=== PATIENT | male | born 1935 | race Caucasian/White ===

== ENCOUNTER → 2018-02-15 06:52 | Outpatient (CLI) | payer MEDICARE, SELFPAY ==
--- NOTE | 2018-02-15 | DI.MRI.S_ITS ---
PROCEDURE: MR HEAD/BRAIN WO CON INDICATIONS: Benign neoplasm of pituitary gland TECHNIQUE: Non-contrast axial T1 spin echo, axial T2 fast spin echo, sagittal and axial FLAIR, coronal T2 fast spin echo, axial gradient echo, axial diffusion and ADC through the brain. COMPARISON: [facility], CT, HEAD WITHOUT CONTRAST, 09/30/2016, 16:02. [facility], CT, HEAD WITHOUT CONTRAST, 12/20/2016, 19:56. [facility], MR, BRAIN (PITUITARY) W&WO CONTRAS, 08/26/2016, 7:46. [facility], CT, HEAD WITHOUT CONTRAST, 01/24/2016, 12:52. [facility], MR, BRAIN W&WO CONTRAST, 01/24/2016, 14:00. FINDINGS: Image quality: Excellent. CSF spaces: Ventricles appear symmetric in size and shape. Basal cisterns are patent. No extra-axial fluid collections. Brain: The pituitary fossa is enlarged. The large pituitary mass seen on prior MRIs are no longer visualized. There are post surgical changes in the pituitary fossa. There is 1.6 x 1.3 x 1.0 cm soft tissue left inferior lateral pituitary fossa. No intracranial bleeds or mass effects. There is cerebral volume loss for age. There are mild periventricular and deep white matter chronic small vessel ischemic changes. Brainstem appears normal. Diffusion-weighted images show no acute ischemic insults. No chronic ischemic insults. Normal intravascular flow voids are present. Skull and face: Calvarial bone marrow is normal in signal. Orbits are normal. Sinuses: Mastoids are clear. Mild ethmoid and maxillary sinus mucosal thickening bilaterally. IMPRESSION: 1. Postsurgical changes in the pituitary fossa. The large pituitary mass seen on prior MRIs is no longer visualized. There is a 1.6 x 1.3 x 1.0 cm soft tissue in the left Inferolateral aspect of the pituitary fossa, which could be postsurgical sequela but residual mass is not excluded. Contrast-enhanced images are recommended for further characterization. Comparison to outside post-operative MRI examinations is also recommended when prior outside studies become available. 2. No acute intracranial abnormalities. 3. Cerebral volume loss and mild chronic microvascular ischemic changes. 4. Mild bilateral ethmoid and maxillary sinus because of thickening. Dictated by: Keenan Frausto M.D. on 02/15/2018 at 10:22 Approved by: Keenan Frausto M.D. on 02/15/2018 at 10:47
== END ==
PROVIDERS: PCP Family Medicine; Visit Provider Nurse Practitioner
DX: D35.2 Benign neoplasm of pituitary gland (principal); J32.8 Other chronic sinusitis
CPT/HCPCS: 70551

== ENCOUNTER 2018-07-05 12:39 | Emergency (ER) | payer MEDICARE, SELFPAY ==
[2018-07-05 13:15] VITALS: BP 139/55; PULSE 68; RESP 18; TEMP 36.6; O2SAT 98
--- NOTE | 2018-07-05 13:46 | DI.RAD.S_ITS ---
PROCEDURE: XR CHEST 2V INDICATIONS: cough, chest pain with inspiration TECHNIQUE: 2 views of the chest were acquired. COMPARISON: [facility], , CHEST 1 VIEW, 01/21/2017, 20:08. FINDINGS: Surgical changes and devices: None. Lungs and pleura: Patchy opacity noted in the left lung base concerning for aspiration versus pneumonia. Trace left pleural effusion. No pneumothorax. Mediastinum: Mediastinal contours are normal. Heart size is normal. Bones and chest wall: No suspicious bony abnormalities. Soft tissues appear unremarkable. IMPRESSION: Left basilar pneumonia versus aspiration with trace left-sided pleural effusion. Dictated by: Em Chavira MD, PhD on 07/05/2018 at 14:18 Approved by: Em Chavira MD, PhD on 07/05/2018 at 14:19
--- NOTE | 2018-07-05 13:50 | ED_ITS ---
HPI - Weakness <Parris Hinds, FRONT OFFICE MANAGER-BC - Last Filed: 07/05/18 19:04> General Chief complaint: Dizziness Stated complaint: Low BP,discomfort in left arm Time Seen by Provider: 07/05/18 13:29 Source: patient and family Mode of arrival: ambulatory Limitations: no limitations History of Present Illness HPI Narrative: The patient is an 82-year-old male with history of syncope who presents with his daughter for chief complaint of progressive weakness over the past few days combined with left-sided shoulder and arm pain for the past few days. He denies current pain at this point time. The patient's daughter presented today in, states something is just wrong. 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 He states he got really pale and 1 of his forced him to sit down. He denies any chest pain at this point time, shortness of breath, but does complain of chest congestion. He states that his left chest hurts when he takes a deep breath in. He denies any abdominal pain nausea vomiting but does complain of soft stools. He states this is not diarrhea. He states he is trying to drink enough water, but his daughter states he is not. Related Data Home Medications Medication Instructions Recorded Confirmed hydrocortisone [Cortef] 20 mg PO DAILY #0 09/30/16 07/05/18 levothyroxine [Synthroid] 0.075 mg PO QAM #0 09/30/16 07/05/18 desmopressin 0.05 mg PO BEDTIME #0 01/14/17 07/05/18 aspirin 81 mg PO QAM #0 01/21/17 07/05/18 latanoprost 1 drp OPHTH BEDTIME #0 01/21/17 07/05/18 Calcium 1 tab PO QNOON 07/05/18 07/05/18 atorvastatin [Lipitor] 10 mg PO BEDTIME 07/05/18 07/05/18 multivitamin 1 tab PO DAILY 07/05/18 07/05/18 valsartan 160 mg PO QPM 07/05/18 07/05/18 Previous Rx's Medication Instructions Recorded Zostavax (PF) 0.5 ml SQ X1 #0.5 ml 02/09/17 albuterol sulfate [Ventolin HFA] 2 puff INHALATION Q4-6H PRN #18 07/05/18 gram levofloxacin [Levaquin] 750 mg PO DAILY #7 tab 07/05/18 Allergies Allergy/AdvReac Type Severity Reaction Status Date / Time No Known Drug Allergies Allergy Unknown Unverified 06/24/17 12:33 [NO KNOWN DRUG ALLERGIES] Review of Systems <LIBRA Alberto - Last Filed: 07/05/18 19:04> Review of Systems GENERAL: Denies chills, fatigue, malaise, fever, sweats. HEENT: Denies sinus pain, ear pain, sore throat, difficulty swallowing, dizziness. RESPIRATORY: See HPI CARDIOVASCULAR: See HPI GASTROINTESTINAL: Denies nausea, vomiting, abdominal pain, diarrhea, constipation, melena. : Denies dysuria, frequency, incontinence, hematuria, urinary retention. MUSCULOSKELETAL: denies weakness, joint pain, or bony pain SKIN: Denies rash, skin lesions, or other NEUROLOGIC: Denies weakness, headache, numbness, change in speech, confusion, seizures, incoordination. PSYCHIATRIC: No concerning psychosocial issues. 12 point review of systems is negative except for those stated above PFSH <LIBRA Alberto - Last Filed: 07/05/18 19:04> Surgical History Status post appendectomy Family History (Updated 09/19/16 @ 00:00 by Conversion Provider) Grandfather Mental health problem Grandmother Hypertension Mother Age: 104 Colon cancer Grandfather Heart disease Family History Grandfather Mental health problem Grandmother Hypertension Mother Age: 104 Colon cancer Grandfather Heart disease Exam <LIBRA Alberto - Last Filed: 07/05/18 19:04> Narrative Exam Narrative: GENERAL: This is a well-nourished, well-developed patient, no acute distress HEAD: Atraumatic. Normocephalic. No temporal or scalp tenderness. EYES: Pupils equal round and reactive. Extraocular motions intact. No scleral icterus. No injection or drainage. ENT: Nose without bleeding, purulent drainage or septal hematoma. Throat without erythema, tonsillar hypertrophy or exudate. Uvula midline. Airway patent. NECK: Trachea midline. No JVD or lymphadenopathy. Supple, nontender, no meningeal signs. CARDIOVASCULAR: Regular rate and rhythm without murmurs, gallops, or rubs. RESPIRATORY: Clear to auscultation. Breath sounds equal bilaterally. No wheezes, rales, or rhonchi. Slight cough on exam. No accessory muscle use. Speaking full sentences. GASTROINTESTINAL: Abdomen soft, non-tender, nondistended. No hepato- splenomegaly, or palpable masses. No guarding. EXTREMITIES: No clubbing, cyanosis, or edema. No joint tenderness, effusion, or edema noted. BACK: Nontender without deformity or crepitance. No flank tenderness. NEURO: AOx3. SKIN: No rash or erythema. Initial Vital Signs Initial Vital Signs: Vital Signs Temperature 97.9 F 07/05/18 13:15 Pulse Rate 68 07/05/18 13:15 Respiratory Rate 18 07/05/18 13:15 Blood Pressure 139/55 L 07/05/18 13:15 Pulse Oximetry 98 07/05/18 13:15 <Jennifer Moss DO - Last Filed: 07/06/18 11:21> Initial Vital Signs Initial Vital Signs: Vital Signs Temperature 97.9 F 07/05/18 13:15 Pulse Rate 68 07/05/18 13:15 Respiratory Rate 18 07/05/18 13:15 Blood Pressure 139/55 L 07/05/18 13:15 Pulse Oximetry 98 07/05/18 13:15 Course <MATT Alberto-BC - Last Filed: 07/05/18 19:04> Orders Ordered: Discontinued Medications Sodium Chloride (Normal Saline 0.9%) 1,000 mls @ 1,000 mls/hr IV BOLUS ONE Stop: 07/05/18 14:45 Last Infusion: 07/05/18 16:48 Dose: 0 mls/hr Admin: 07/05/18 14:53 Dose: 1,000 mls/hr Vital Signs - 8 hr 07/05/18 13:15 07/05/18 15:02 07/05/18 16:00 Temperature 97.9 F Pulse Rate 68 92 H 71 Pulse Rate [Orthostatic Lying] Pulse Rate [Orthostatic Sitting] Pulse Rate [Orthostatic Standing] Respiratory Rate 18 17 21 Blood Pressure 139/55 L Blood Pressure [Left Arm] 120/86 147/62 H Blood Pressure [Orthostatic Lying] Blood Pressure [Orthostatic Sitting] Blood Pressure [Orthostatic Standing] Pulse Oximetry 98 98 97 07/05/18 16:45 07/05/18 17:00 07/05/18 18:00 Temperature Pulse Rate 66 67 Pulse Rate [Orthostatic Lying] 67 Pulse Rate [Orthostatic Sitting] 74 Pulse Rate [Orthostatic Standing] 82 Respiratory Rate 21 19 Blood Pressure Blood Pressure [Left Arm] 141/53 H 140/54 L Blood Pressure [Orthostatic Lying] 128/51 L Blood Pressure [Orthostatic Sitting] 150/64 H Blood Pressure [Orthostatic Standing] 128/60 Pulse Oximetry 97 97 <Jennifer Moss DO - Last Filed: 07/06/18 11:21> Orders Ordered: Discontinued Medications Sodium Chloride (Normal Saline 0.9%) 1,000 mls @ 1,000 mls/hr IV BOLUS ONE Stop: 07/05/18 14:45 Last Infusion: 07/05/18 16:48 Dose: 0 mls/hr Admin: 07/05/18 14:53 Dose: 1,000 mls/hr Vital Signs - 8 hr 07/05/18 13:15 07/05/18 15:02 07/05/18 16:00 Temperature 97.9 F Pulse Rate 68 92 H 71 Pulse Rate [Orthostatic Lying] Pulse Rate [Orthostatic Sitting] Pulse Rate [Orthostatic Standing] Respiratory Rate 18 17 21 Blood Pressure 139/55 L Blood Pressure [Left Arm] 120/86 147/62 H Blood Pressure [Orthostatic Lying] Blood Pressure [Orthostatic Sitting] Blood Pressure [Orthostatic Standing] Pulse Oximetry 98 98 97 07/05/18 16:45 07/05/18 17:00 07/05/18 18:00 Temperature Pulse Rate 66 67 Pulse Rate [Orthostatic Lying] 67 Pulse Rate [Orthostatic Sitting] 74 Pulse Rate [Orthostatic Standing] 82 Respiratory Rate 21 19 Blood Pressure Blood Pressure [Left Arm] 141/53 H 140/54 L Blood Pressure [Orthostatic Lying] 128/51 L Blood Pressure [Orthostatic Sitting] 150/64 H Blood Pressure [Orthostatic Standing] 128/60 Pulse Oximetry 97 97 MDM - Weakness <LIBRA Alberto - Last Filed: 07/05/18 19:04> Lab Data Result diagrams: 07/05/18 14:55 07/05/18 14:55 Lab Results 07/05/18 07/05/18 07/05/18 Range/Units 14:55 14:55 14:55 WBC 9.5 (4.5-11.0) X10^3/uL RBC 3.98 L (4.5-5.9) X10^6/uL Hgb 11.6 L (13.5-17.5) g/dL Hct 34.7 L (41-53) % MCV 87.1 (80-100) fL MCH 29.2 (26-34) PG MCHC 33.6 (30-36) % RDW 13.4 (11.6-14.8) % Plt Count 129 L (150-400) X10^3/uL Neut % (Auto) 78.9 H (50-75) % Lymph % (Auto) 10.3 L (25-40) % Jewell % (Auto) 10.1 (3-14) % Eos % (Auto) 0.4 L (2-4) % Baso % (Auto) 0.3 (0-2) % Neut # (Auto) 7500 H (2111-6541) /uL Lymph # (Auto) 1000 L (8941-8736) /uL Jewell # (Auto) 1000 H (0-900) /uL Eos # (Auto) 0 (0-450) /uL Baso # (Auto) 0 (0-100) /uL PT 13.0 H (10.1-12.7) SECONDS INR 1.1 (0.9-1.3) Sodium 135 L (137-145) mmol/L Potassium 4.3 (3.4-5.1) mmol/L Chloride 98 (98-107) mmol/L Carbon Dioxide 28 (22-32) mmol/L BUN 29 H (9-20) mg/dL Creatinine 1.90 H (0.66-1.25) mg/dL Estimated GFR 34.2 L (>60) mL/min BUN/Creatinine Ratio 15.3 (6-22) Glucose 93 (80-110) mg/dL Calcium 9.5 (8.4-10.2) mg/dL Magnesium (1.6-2.3) mg/dL Total Bilirubin 1.0 (0.2-1.3) mg/dL AST 37 (17-59) IU/L ALT 22 (21-72) IU/L Alkaline Phosphatase 71 (38-126) U/L Total Creatine Kinase 57 (55-170) U/L CK-MB (CK-2) TNP CK-MB (CK-2) Rel Index TNP Troponin I < 0.012 (0.01-0.034) ng/mL B-Natriuretic Peptide < 100 (<100) Total Protein 7.1 (6.3-8.2) g/dL Albumin 4.1 (3.5-5.0) g/dL Globulin 3.0 (1.7-4.1) g/dL Albumin/Globulin Ratio 1.4 (1.0-2.8) 07/05/18 07/05/18 Range/Units 14:55 17:10 WBC (4.5-11.0) X10^3/uL RBC (4.5-5.9) X10^6/uL Hgb (13.5-17.5) g/dL Hct (41-53) % MCV (80-100) fL MCH (26-34) PG MCHC (30-36) % RDW (11.6-14.8) % Plt Count (150-400) X10^3/uL Neut % (Auto) (50-75) % Lymph % (Auto) (25-40) % Jewell % (Auto) (3-14) % Eos % (Auto) (2-4) % Baso % (Auto) (0-2) % Neut # (Auto) (0508-7817) /uL Lymph # (Auto) (1512-9833) /uL Jewell # (Auto) (0-900) /uL Eos # (Auto) (0-450) /uL Baso # (Auto) (0-100) /uL PT (10.1-12.7) SECONDS INR (0.9-1.3) Sodium (137-145) mmol/L Potassium (3.4-5.1) mmol/L Chloride (98-107) mmol/L Carbon Dioxide (22-32) mmol/L BUN (9-20) mg/dL Creatinine (0.66-1.25) mg/dL Estimated GFR (>60) mL/min BUN/Creatinine Ratio (6-22) Glucose (80-110) mg/dL Calcium (8.4-10.2) mg/dL Magnesium 2.1 (1.6-2.3) mg/dL Total Bilirubin (0.2-1.3) mg/dL AST (17-59) IU/L ALT (21-72) IU/L Alkaline Phosphatase (38-126) U/L Total Creatine Kinase 57 (55-170) U/L CK-MB (CK-2) TNP CK-MB (CK-2) Rel Index TNP Troponin I < 0.012 (0.01-0.034) ng/mL B-Natriuretic Peptide (<100) Total Protein (6.3-8.2) g/dL Albumin (3.5-5.0) g/dL Globulin (1.7-4.1) g/dL Albumin/Globulin Ratio (1.0-2.8) Urine Dip Bedside Urine Glucose Negative Bedside Urine Bilirubin - Negative Bedside Urine Ketone - Negative Urine Specific [place] 1.015 Bedside Urine Occult Blood - Negative Bedside Urine pH 6.0 Bedside Urine Protein +/- 15 Bedside Urine Urobilinogen - Negative Bedside Urine Nitrite - Negative Bedside Urine Leukocytes - Negative Esterase Imaging Data Chest x-ray: Radiologist's impression: [address] [address] XRay Report Signed Patient: Pablo Saez LMR#: [id number] : 7Acct:[id number] Age/Sex: 82 / MDate of Service: 07/05/18 Loc: ED Accession Number: [id number] Procedure: XR chest 2V Ordering Provider: Parris Hinds PROCEDURE: XR CHEST 2V INDICATIONS: cough, chest pain with inspiration TECHNIQUE: 2 views of the chest were acquired. COMPARISON: [facility], , CHEST 1 VIEW, 01/21/2017, 20:08. FINDINGS: Surgical changes and devices: None. Lungs and pleura: Patchy opacity noted in the left lung base concerning for aspiration versus pneumonia. Trace left pleural effusion. No pneumothorax. Mediastinum: Mediastinal contours are normal. Heart size is normal. Bones and chest wall: No suspicious bony abnormalities. Soft tissues appear unremarkable. IMPRESSION: Left basilar pneumonia versus aspiration with trace left-sided pleural effusion. Dictated by: Em Chavira MD, PhD on 07/05/2018 at 14:18 Approved by: Em Chavira MD, PhD on 07/05/2018 at 14:19 CT scan - head: Radiologist's impression: [address] [address] [address] Scan Report Signed Patient: Pablo Saez LMR#: [id number] : 7Acct:[id number] Age/Sex: 82 / MDate of Service: 07/05/18 Loc: ED Accession Number: [id number] Procedure: CT head/brain wo con [facility]ing [facility] CT HEAD/BRAIN WO CON INDICATIONS: Dizziness. 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 TECHNIQUE: Noncontrast 4.5 mm thick angled axial sections acquired from the foramen magnum to the vertex, with coronal and sagittal reformats. For radiation dose reduction, the following was used: automated exposure control, adjustment of mA and/or kV according to patient size. COMPARISON: [facility], CT, HEAD WITHOUT CONTRAST, 12/20/2016, 19:56. [facility], CT, HEAD WITHOUT CONTRAST, 09/30/2016, 16:02. [facility], CT, HEAD WITHOUT CONTRAST, 01/24/2016, 12:52. FINDINGS: Image quality: Excellent. CSF spaces: Basal cisterns are patent. No extra-axial fluid collections. Ventricles are normal in size and shape. Brain: No midline shift. No intracranial hemorrhage. Soriano-white matter interface is normal. Punctate left basal ganglia calcifications are unchanged from prior comparison exams. There is mild diffuse cerebral volume loss. There is mild subcortical and periventricular white matter hypoattenuation that is nonspecific but compatible with chronic microvascular ischemic changes. There is calcified plaque of the intracranial vasculature. There are demonstrated postsurgical changes of the left greater than right pituitary fossa, with residual postsurgical material/soft tissue in the left pituitary fossa that appears similar to prior comparison exam of 12/20/16.. Skull and face: Calvarium and visualized facial bones are intact, without suspicious lesions. Sinuses: Visualized sinuses and mastoids are clear. IMPRESSION: 1. Redemonstrated postsurgical changes of the pituitary fossa with reported history of prior pituitary tumor removal. Residual pituitary tumor cannot be excluded by noncontrast CT scan of the head. 2. No acute intracranial hemorrhage or large territorial infarct. Dictated by: Ernesto Daniels M.D. on 07/05/2018 at 14:35 Approved by: Ernesto Daniels M.D. on 07/05/2018 at 14:44 ECG Data Interpretation: Sinus rhythm. ventricular rate 69. No ST elevation or depression. No ectopy noted. Viewed by Dr. Moss MDM Narrative Medical decision making narrative: The patient is an 82-year-old male who presents with complaints of weakness and pain upon deep breaths on his left side. His CT shows no acute abnormality, but shows pneumonia on chest x-ray. He has 2 sets of negative troponins, normal white blood cell count is hemodynamically stable in the emergency department. Thus he was given Levaquin. He also had a prescription of Ventolin if needed. I discussed at length return precautions of severe shortness of breath, chest pain or acute concerns. Encouraged patient to follow up with primary care provider soon as possible. Patient has no questions or concerns and was discharged home with daughter. <Jennifer Moss, - Last Filed: 07/06/18 11:21> Lab Data Attestation: I reviewed the patient's lab results. Lab Results 07/05/18 07/05/18 07/05/18 Range/Units 14:55 14:55 14:55 WBC 9.5 (4.5-11.0) X10^3/uL RBC 3.98 L (4.5-5.9) X10^6/uL Hgb 11.6 L (13.5-17.5) g/dL Hct 34.7 L (41-53) % MCV 87.1 (80-100) fL MCH 29.2 (26-34) PG MCHC 33.6 (30-36) % RDW 13.4 (11.6-14.8) % Plt Count 129 L (150-400) X10^3/uL Neut % (Auto) 78.9 H (50-75) % Lymph % (Auto) 10.3 L (25-40) % Jewell % (Auto) 10.1 (3-14) % Eos % (Auto) 0.4 L (2-4) % Baso % (Auto) 0.3 (0-2) % Neut # (Auto) 7500 H (3322-7858) /uL Lymph # (Auto) 1000 L (8473-1599) /uL Jewell # (Auto) 1000 H (0-900) /uL Eos # (Auto) 0 (0-450) /uL Baso # (Auto) 0 (0-100) /uL PT 13.0 H (10.1-12.7) SECONDS INR 1.1 (0.9-1.3) Sodium 135 L (137-145) mmol/L Potassium 4.3 (3.4-5.1) mmol/L Chloride 98 (98-107) mmol/L Carbon Dioxide 28 (22-32) mmol/L BUN 29 H (9-20) mg/dL Creatinine 1.90 H (0.66-1.25) mg/dL Estimated GFR 34.2 L (>60) mL/min BUN/Creatinine Ratio 15.3 (6-22) Glucose 93 (80-110) mg/dL Calcium 9.5 (8.4-10.2) mg/dL Magnesium (1.6-2.3) mg/dL Total Bilirubin 1.0 (0.2-1.3) mg/dL AST 37 (17-59) IU/L ALT 22 (21-72) IU/L Alkaline Phosphatase 71 (38-126) U/L Total Creatine Kinase 57 (55-170) U/L CK-MB (CK-2) TNP CK-MB (CK-2) Rel Index TNP Troponin I < 0.012 (0.01-0.034) ng/mL B-Natriuretic Peptide < 100 (<100) Total Protein 7.1 (6.3-8.2) g/dL Albumin 4.1 (3.5-5.0) g/dL Globulin 3.0 (1.7-4.1) g/dL Albumin/Globulin Ratio 1.4 (1.0-2.8) 07/05/18 07/05/18 Range/Units 14:55 17:10 WBC (4.5-11.0) X10^3/uL RBC (4.5-5.9) X10^6/uL Hgb (13.5-17.5) g/dL Hct (41-53) % MCV (80-100) fL MCH (26-34) PG MCHC (30-36) % RDW (11.6-14.8) % Plt Count (150-400) X10^3/uL Neut % (Auto) (50-75) % Lymph % (Auto) (25-40) % Jewell % (Auto) (3-14) % Eos % (Auto) (2-4) % Baso % (Auto) (0-2) % Neut # (Auto) (2054-4608) /uL Lymph # (Auto) (0526-4728) /uL Jewell # (Auto) (0-900) /uL Eos # (Auto) (0-450) /uL Baso # (Auto) (0-100) /uL PT (10.1-12.7) SECONDS INR (0.9-1.3) Sodium (137-145) mmol/L Potassium (3.4-5.1) mmol/L Chloride (98-107) mmol/L Carbon Dioxide (22-32) mmol/L BUN (9-20) mg/dL Creatinine (0.66-1.25) mg/dL Estimated GFR (>60) mL/min BUN/Creatinine Ratio (6-22) Glucose (80-110) mg/dL Calcium (8.4-10.2) mg/dL Magnesium 2.1 (1.6-2.3) mg/dL Total Bilirubin (0.2-1.3) mg/dL AST (17-59) IU/L ALT (21-72) IU/L Alkaline Phosphatase (38-126) U/L Total Creatine Kinase 57 (55-170) U/L CK-MB (CK-2) TNP CK-MB (CK-2) Rel Index TNP Troponin I < 0.012 (0.01-0.034) ng/mL B-Natriuretic Peptide (<100) Total Protein (6.3-8.2) g/dL Albumin (3.5-5.0) g/dL Globulin (1.7-4.1) g/dL Albumin/Globulin Ratio (1.0-2.8) Urine Dip Bedside Urine Glucose Negative Bedside Urine Bilirubin - Negative Bedside Urine Ketone - Negative Urine Specific [place] 1.015 Bedside Urine Occult Blood - Negative Bedside Urine pH 6.0 Bedside Urine Protein +/- 15 Bedside Urine Urobilinogen - Negative Bedside Urine Nitrite - Negative Bedside Urine Leukocytes - Negative Esterase ECG Data Attestation: I personally reviewed and interpreted this ECG as follows: Prior ECG tracings: available for review Interpretation: Normal sinus rhythm rate 69. R interval [address] changes no T-wave inversions similar to previous EKG. She does have stable slight ST depressions in V5 and V6 but less than 1 mm Discharge Plan Departure Patient Disposition: Home Clinical Impression: Pneumonia Qualifiers: Pneumonia type: due to unspecified organism Laterality: left Lung location: lower lobe of lung Qualified Code(s): J18.1 - Lobar pneumonia, unspecified organism Discharge Date/Time: 07/05/18 18:48 Interventions: ED Discharge Assessment Last Done: 07/05/18 18:47 Activity Restrictions/Additional Instructions: Pablo had a normal head CT, 2 normal sets of heart enzymes and a normal urinalysis. However he has pneumonia on his chest x-ray. I am initiating treatment with Levaquin. Monitor for any tendon pain and follow up as soon as possible if this occurs. Please follow up with primary care provider soon as possible. Please come back to the emergency department for any acute concerns including chest pain, shortness of breath concern of heart attack or stroke. Please rest and push fluids. Prescriptions: New levofloxacin [Levaquin] 750 mg tablet 750 mg PO DAILY Qty: 7 RF: 0 albuterol sulfate [Ventolin HFA] 90 mcg/actuation HFA aerosol inhaler 2 puff INHALATION Q4-6H PRN (Reason: shortness of breath or wheezing) Qty: 18 RF: 0 No Action levothyroxine [Synthroid] 75 MCG tablet 0.075 mg PO QAM Qty: 0 RF: 0 hydrocortisone [Cortef] 20 MG tablet 20 mg PO DAILY Qty: 0 RF: 0 desmopressin 0.1 MG tablet 0.05 mg PO BEDTIME Qty: 0 RF: 0 latanoprost 0.005 % drops 1 drp OPHTH BEDTIME Qty: 0 RF: 0 aspirin 81 MG tablet,delayed release (DR/EC) 81 mg PO QAM Qty: 0 RF: 0 Zostavax (PF) 19,400 UNIT/0.65 ML suspension for reconstitution 0.5 ml SQ X1 Qty: 0.5 RF: 0 atorvastatin [Lipitor] 10 mg tablet 10 mg PO BEDTIME RF: 0 valsartan 160 mg tablet 160 mg PO QPM RF: 0 Calcium 1 tab PO QNOON RF: 0 multivitamin Tablet 1 tab PO DAILY RF: 0 Referrals: Reyes Beckford MD [Primary Care Provider] - <Jennifer Moss DO - Last Filed: 07/06/18 11:21> Cosign ED Attending Coskishaature Attestation: I was immediately available in the department for consultation. Documentation has been reviewed. I agree with assessment and plan.
--- NOTE | 2018-07-05 14:00 | DI.CT.S_ITS ---
PROCEDURE: CT HEAD/BRAIN WO CON INDICATIONS: Dizziness. 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 TECHNIQUE: Noncontrast 4.5 mm thick angled axial sections acquired from the foramen magnum to the vertex, with coronal and sagittal reformats. For radiation dose reduction, the following was used: automated exposure control, adjustment of mA and/or kV according to patient size. COMPARISON: [facility], CT, HEAD WITHOUT CONTRAST, 12/20/2016, 19:56. [facility], CT, HEAD WITHOUT CONTRAST, 09/30/2016, 16:02. [facility], CT, HEAD WITHOUT CONTRAST, 01/24/2016, 12:52. FINDINGS: Image quality: Excellent. CSF spaces: Basal cisterns are patent. No extra-axial fluid collections. Ventricles are normal in size and shape. Brain: No midline shift. No intracranial hemorrhage. Soriano-white matter interface is normal. Punctate left basal ganglia calcifications are unchanged from prior comparison exams. There is mild diffuse cerebral volume loss. There is mild subcortical and periventricular white matter hypoattenuation that is nonspecific but compatible with chronic microvascular ischemic changes. There is calcified plaque of the intracranial vasculature. There are demonstrated postsurgical changes of the left greater than right pituitary fossa, with residual postsurgical material/soft tissue in the left pituitary fossa that appears similar to prior comparison exam of 12/20/16.. Skull and face: Calvarium and visualized facial bones are intact, without suspicious lesions. Sinuses: Visualized sinuses and mastoids are clear. IMPRESSION: 1. Redemonstrated postsurgical changes of the pituitary fossa with reported history of prior pituitary tumor removal. Residual pituitary tumor cannot be excluded by noncontrast CT scan of the head. 2. No acute intracranial hemorrhage or large territorial infarct. Dictated by: Ernesto Daniels M.D. on 07/05/2018 at 14:35 Approved by: Ernesto Daniels M.D. on 07/05/2018 at 14:44
[2018-07-05] MEDS: SODIUM CHLORIDE 0.9% 1,000 ML 1000 ML IV (14:53)
[2018-07-05 15:02] VITALS: BP 120/86; PULSE 92; RESP 17; O2SAT 98
[2018-07-05 15:05] LABS: Add Manual Diff / Slide Review NO; Basophils Absolute Auto 0 /uL (0-100); Basophils Percent Auto 0.3 % (0-2); Eosinophils Absolute Auto 0 /uL (0-450); Eosinophils Percent Auto 0.4 % (2-4); Hematocrit 34.7 % (41-53); Hemoglobin 11.6 g/dL (13.5-17.5); Lymphocytes Absolute Auto 1000 /uL (1100-4500); Lymphocytes Percent Auto 10.3 % (25-40); Mean Corpuscular HGB Conc 33.6 % (30-36); Mean Corpuscular Hemoglobin 29.2 PG (26-34); Mean Corpuscular Volume 87.1 fL (80-100); Monocytes Absolute Auto 1000 /uL (0-900); Monocytes Percent Auto 10.1 % (3-14); Neutrophils Absolute Auto 7500 /uL (1500-7000); Neutrophils Percent Auto 78.9 % (50-75); Platelet Count 129 X10^3/uL (150-400); Red Blood Cell Count 3.98 X10^6/uL (4.5-5.9); Red Cell Distribution Width 13.4 % (11.6-14.8); White Blood Cell Count 9.5 X10^3/uL (4.5-11.0)
[2018-07-05 15:16] LABS: INR 1.1 (0.9-1.3)
[2018-07-05 15:22] LABS: Alanine Aminotransferase 22 IU/L (21-72); Albumin 4.1 g/dL (3.5-5.0); Albumin Globulin Ratio 1.4 (1.0-2.8); Alkaline Phosphatase 71 U/L (38-126); Aspartate Aminotransferase 37 IU/L (17-59); BUN Creatinine Ratio 15.3 (6-22); Blood Urea Nitrogen 29 mg/dL (9-20); Calcium 9.5 mg/dL (8.4-10.2); Carbon Dioxide 28 mmol/L (22-32); Chloride 98 mmol/L (98-107); Creatine Kinase 57 U/L (55-170); Estimated Glomerular Filt Rate 34.2 mL/min (>60); Glucose 93 mg/dL (80-110); HEMOLYSIS < 15 (0-50); Potassium 4.3 mmol/L (3.4-5.1); Sodium 135 mmol/L (137-145); Total Protein 7.1 g/dL (6.3-8.2)
[2018-07-05 15:23] LABS: B Type Natriuretic Peptide < 100 (<100)
[2018-07-05 15:33] LABS: Troponin I < 0.012 ng/mL (0.01-0.034)
[2018-07-05 15:42] LABS: Magnesium 2.1 mg/dL (1.6-2.3)
[2018-07-05 16:00] VITALS: BP 147/62; PULSE 71; RESP 21; O2SAT 97
[2018-07-05 16:45] VITALS: BP 128/51; BP 128/60; BP 150/64; PULSE 67; PULSE 74; PULSE 82
[2018-07-05 17:00] VITALS: BP 141/53; PULSE 66; RESP 21; O2SAT 97
[2018-07-05 17:25] LABS: Creatine Kinase 57 U/L (55-170)
[2018-07-05 17:38] LABS: Troponin I < 0.012 ng/mL (0.01-0.034)
[2018-07-05 18:00] VITALS: BP 140/54; PULSE 67; RESP 19; O2SAT 97
== END 2018-07-05 18:48 | disposition home or self-care (01) ==
PROVIDERS: Emergency Provider Nurse Practitioner Family; PCP Family Medicine
DX: J18.1 Lobar pneumonia, unspecified organism (principal); R53.1 Weakness; R03.1 Nonspecific low blood-pressure reading; R55 Syncope and collapse; M79.602 Pain in left arm
CPT/HCPCS: 36415; 36591; 70450; 71046; 80053; 81003; 82550; 83735; 83880; 84484; 85025; 85610; 93005; 96360; 96361; 99283; 99285

== ENCOUNTER → 2018-08-20 14:28 | Outpatient (CLI) | payer MEDICARE, SELFPAY ==
--- NOTE | 2018-08-20 14:29 | DI.RAD.S_ITS ---
PROCEDURE: XR CHEST 2V INDICATIONS: cxr TECHNIQUE: 2 views of the chest were acquired. COMPARISON: [facility], , CHEST 1 VIEW, 01/21/2017, 20:08. [facility], , XR CHEST 2V, 07/05/2018, 14:05. FINDINGS: Surgical changes and devices: None. Lungs and pleura: Improved aeration of the left lower lobe and resolution of previous left pleural effusion. There is persistent platelike patchy opacity involving the left lung base. No pneumothorax. Mediastinum: Mediastinal contours are normal. Heart size is normal. Bones and chest wall: No suspicious bony abnormalities. Lateral curvature of the spine. Soft tissues appear unremarkable. IMPRESSION: Overall, improved aeration of the left lower lobe although persistent focal opacity involving the left lung base warrants continued surveillance to document resolution or long-term stability and exclude underlying pulmonary nodule. Consider PA and lateral chest radiograph followup in 1-2 months. If there is high clinical suspicion, a noncontrast chest CT could be considered. Dictated by: Mervin Lazar M.D. on 08/20/2018 at 15:08 Approved by: Mervin Lazar M.D. on 08/20/2018 at 15:11
== END ==
PROVIDERS: PCP Family Medicine; Visit Provider Family Medicine
DX: J18.9 Pneumonia, unspecified organism (principal)
CPT/HCPCS: 71046

== ENCOUNTER → 2018-09-06 13:11 | Outpatient (CLI) | payer MEDICARE, SELFPAY ==
--- NOTE | 2018-09-06 13:11 | DI.CT.S_ITS ---
PROCEDURE: CT CHEST W CON INDICATIONS: left lung pulomonary opacity not resolving TECHNIQUE: After the administration of intravenous contrast, 5 mm thick sections acquired from the pulmonary apices to the posterior costophrenic angles. 7 mm thick coronal and sagittal MIP reformats were acquired. For radiation dose reduction, the following was used: automated exposure control, adjustment of mA and/or kV according to patient size. COMPARISON: [facility], CR, CHEST 1 VIEW, 01/21/2017, 20:08. [facility], CR, XR CHEST 2V, 07/05/2018, 14:05. [facility], MR, BRAIN (PITUITARY) W&WO CONTRAS, 08/26/2016, 7:46. [facility], CR, XR CHEST 2V, 08/20/2018, 14:36. FINDINGS: Image quality: Excellent. Lungs and pleura: In the area of current left-sided posterior plain film concern what appears to be alveolar airspace disease abuts the pleural surface, with mild volume loss and curving of the bronchovascular markings towards this area indicating some degree of scarring. A discrete malignant appearing mass is not found.. No pleural effusions or pneumothorax. Central and peripheral airways are patent and normal in caliber. Mediastinum: Heart size is normal. No pericardial effusion. No mediastinal or hilar adenopathy by size criteria. Thoracic aorta and central pulmonary arteries are normal in size. Esophagus is normal in caliber. No hiatal hernia. Bones and chest wall: No suspicious bony lesions. No vertebral body compression fractures. No axillary or supraclavicular adenopathy by size criteria. Thyroid gland appears normal. Abdomen: Visualized upper abdominal solid organs appear normal. Upper abdominal bowel loops are normal in caliber. IMPRESSION: Posterior left lower lobe lung parenchymal airspace disease that was not present in January 2017 but which appears stable from the 2 most recent studies 07/05/18 and the more recent plain film and CT imaging. Continued monitoring by plain film is recommended and if clinical concerns increase a nuclear medicine PET CT scan to further assess this area may become necessary. Currently chronic low grade infection or sequela from prior pneumonia with scarring is considered the most likely cause. Dictated by: Alex Cali M.D. on 09/06/2018 at 17:10 Approved by: Alex Cali M.D. on 09/06/2018 at 17:13
[2018-09-06 14:22] LABS: BUN Creatinine Ratio 17.2 (6-22); Blood Urea Nitrogen 31 mg/dL (9-20); Estimated Glomerular Filt Rate 36.4 mL/min (>60)
== END ==
PROVIDERS: PCP Family Medicine; Visit Provider Family Medicine
DX: Z01.812 Encounter for preprocedural laboratory examination (principal); J98.4 Other disorders of lung
CPT/HCPCS: 36415; 71260; 82565; 84520; Q9967

== ENCOUNTER 2018-11-15 09:45 | Emergency (ER) | payer MEDICARE, SELFPAY ==
[2018-11-15 10:05] VITALS: BP 182/71; PULSE 67; RESP 16; TEMP 36.5; O2SAT 100; BMI 28.3
--- NOTE | 2018-11-15 10:08 | ED.ABDPAIN ---
HPI - Abdominal Pain General Chief Complaint: Abdominal Pain Stated Complaint: RIGHT LOWER ABDOMINAL PAIN Time Seen by Provider: 11/15/18 09:48 Source: patient Mode of arrival: ambulatory Limitations: no limitations History of Present Illness HPI narrative: 83-year-old male here for evaluation of right-sided abdominal pain states the symptoms started approximately 24 hours ago. It is a cramping sensation in the right side his abdomen. He did have to lay on his left side last evening in order to sleep and then when he got up in the [place] in [place] to use the restroom to urinate the movement made the symptoms worse and sleep the rest and in the chair. No nausea vomiting. No change in bowel habits. Not worse with palpation. Is worse with lying back flat. Has not tried anything for symptoms prior to arrival. Has had his appendix out. Related Data Home Medications Medication Instructions Recorded Confirmed hydrocortisone [Cortef] 20 mg PO DAILY #0 09/30/16 09/13/18 levothyroxine [Synthroid] 0.075 mg PO QAM #0 09/30/16 09/13/18 desmopressin 0.05 mg PO BEDTIME #0 01/14/17 09/13/18 aspirin 81 mg PO QAM #0 01/21/17 09/13/18 latanoprost 1 drp OPHTH BEDTIME #0 01/21/17 09/13/18 Calcium 1 tab PO QNOON 07/05/18 09/13/18 multivitamin 1 tab PO DAILY 07/05/18 09/13/18 valsartan 160 mg PO QPM 07/05/18 09/13/18 Previous Rx's Medication Instructions Recorded atorvastatin 10 mg tablet 10 mg PO BEDTIME #90 tab 10/18/18 Allergies Allergy/AdvReac Type Severity Reaction Status Date / Time No Known Drug Allergies Allergy Unknown Verified 09/13/18 15:36 [NO KNOWN DRUG ALLERGIES] Review of Systems Constitutional Constitutional: Denies fever(s) and Denies headache(s) ENT Ears, Nose, Mouth, and Throat: Denies headache(s) Cardiovascular Cardiovascular: Denies chest pain and Denies dyspnea Respiratory Respiratory: Denies dyspnea Gastrointestinal Gastrointestinal: Reports abdominal pain, Denies change in stool character, Denies nausea and Denies vomiting Genitourinary Genitourinary: Denies dysuria and Denies urinary incontinence Musculoskeletal Musculoskeletal: Denies back pain, Denies myalgias and Denies arthralgias Integumentary/Breasts Skin/Breast: Denies rash Neurologic Neurologic: Denies behavioral changes and Denies headache(s) Psychiatric Psychiatric: Denies behavioral changes Hematologic/Lymphatic Hematologic/Lymphatic: Denies easy bleeding and Denies easy bruising PFSH Medical History Hyperlipidemia (11/30/14) Hypertension (11/30/14) Surgical History Status post appendectomy Family History Grandfather Mental health problem Grandmother Hypertension Mother Age: 105 Colon cancer Grandfather Heart disease Social History Smoking Status: Unknown if ever smoked Social History Smoking Status: Unknown if ever smoked Exam Initial Vital Signs Initial Vital Signs: Vital Signs Temperature 97.7 F 11/15/18 10:05 Pulse Rate 67 11/15/18 10:05 Respiratory Rate 16 11/15/18 10:05 Blood Pressure 182/71 H 11/15/18 10:05 Pulse Oximetry 100 11/15/18 10:05 Const General: cooperative and comfortable Orientation: alert and awake HENMT Head: normal to inspection and normocephalic Resp Effort & Inspection: normal respiratory effort Cardio Rate: regular rate Rhythm: regular rhythm GI Inspection: distended Palpation: guarding and tender Back/Spine/Pelvis Back: No CVA tenderness Skin Lesions: no lesions Rashes: no rashes Neuro General: alert and awake Cognition: normal cognition Speech: speech normal Extrem General: normal to inspection and capillary refill normal Course Orders Ordered: ED Orders 11/15/18 10:03 Complete Blood Count AUTO DIFF Stat Comprehensive Metabolic Panel Stat Lipase Stat 11/15/18 10:08 CT abdomen pelvis w con Stat 11/15/18 10:50 Urine Microscopic Stat Discontinued Medications Morphine Sulfate (Morphine) 4 mg IV NOW ONE Stop: 11/15/18 10:09 Last Admin: 11/15/18 10:15 Dose: 4 mg Documented by: JOHNIE Vital Signs Vital signs: Vital Signs - 8 hr 11/15/18 10:05 11/15/18 11:14 Temperature 97.7 F Pulse Rate 67 59 L Respiratory Rate 16 17 Blood Pressure 182/71 H Blood Pressure [Left Arm] 159/66 H Pulse Oximetry 100 99 MDM - Abdominal Pain Lab Data Attestation: I reviewed the patient's lab results. Result diagrams: 11/15/18 10:03 11/15/18 10:03 Labs: Lab Results 11/15/18 11/15/18 11/15/18 Range/Units 10:03 10:03 10:50 WBC 8.4 (4.5-11.0) X10^3/uL RBC 4.07 L (4.5-5.9) X10^6/uL Hgb 11.8 L (13.5-17.5) g/dL Hct 35.4 L (41-53) % MCV 87.1 (80-100) fL MCH 29.1 (26-34) PG MCHC 33.5 (30-36) % RDW 14.1 (11.6-14.8) % Plt Count 155 (150-400) X10^3/uL Neut % (Auto) 69.9 (50-75) % Lymph % (Auto) 19.6 L (25-40) % [place] % (Auto) 7.6 (3-14) % Eos % (Auto) 2.6 (2-4) % Baso % (Auto) 0.3 (0-2) % Neut # (Auto) 5900 (9247-8071) /uL Lymph # (Auto) 1700 (0451-6215) /uL [place] # (Auto) 600 (0-900) /uL Eos # (Auto) 200 (0-450) /uL Baso # (Auto) 0 (0-100) /uL Sodium 137 (137-145) mmol/L Potassium 4.7 (3.4-5.1) mmol/L Chloride 100 (98-107) mmol/L Carbon Dioxide 27 (22-32) mmol/L BUN 28 H (9-20) mg/dL Creatinine 1.90 H (0.66-1.25) mg/dL Estimated GFR 34.1 L (>60) mL/min BUN/Creatinine Ratio 14.7 (6-22) Glucose 227 H (80-110) mg/dL Calcium 9.2 (8.4-10.2) mg/dL Total Bilirubin 0.7 (0.2-1.3) mg/dL AST 52 (17-59) IU/L ALT 17 L (21-72) IU/L Alkaline Phosphatase 68 (38-126) U/L Total Protein 6.8 (6.3-8.2) g/dL Albumin 3.9 (3.5-5.0) g/dL Globulin 2.9 (1.7-4.1) g/dL Albumin/Globulin Ratio 1.3 (1.0-2.8) Lipase 149 (23-300) U/L Urine RBC None seen (0-5/HPF) Urine WBC None seen (0-5/HPF) Ur Squamous Epith Cells 0-1 /hpf (0-5/HPF) Urine Bacteria None seen (None) Ur Culture Indicated? Cult not indicated Micro UA Comment Microscopic normal Point of care testing: Urine Dip Bedside Urine Glucose Negative Bedside Urine Bilirubin - Negative Bedside Urine Ketone - Negative Urine Specific [place] 1.010 Bedside Urine Occult Blood - Negative Bedside Urine pH 5.5 Bedside Urine Protein +/- 15 Bedside Urine Urobilinogen - Negative Bedside Urine Nitrite - Negative Bedside Urine Leukocytes - Negative Esterase Imaging Data CT scan - abdomen: Radiologist's impression: [place] [address] CT Scan Report Signed Patient: Pablo Saez LMR#: [id number] : 7Acct:[id number] Age/Sex: 83 / MDate of Service: 11/15/18 Loc: ED Accession Number: [id number] Procedure: CT abdomen pelvis w con Ordering Provider: Pritesh Jansen D.O. PROCEDURE: CT ABDOMEN PELVIS W CON INDICATIONS: Right-sided abdominal pain TECHNIQUE: After the administration of intravenous contrast, 5 mm thick sections acquired from the diaphragm to the symphysis. 5 mm coronal and sagittal reformats were acquired. For radiation dose reduction, the following was used: automated exposure control, adjustment of mA and/or kV according to patient size. COMPARISON: [facility], CT, CT CHEST W CON, 09/06/2018, 14:36. FINDINGS: Image quality: Excellent. ABDOMEN: Lung bases: Mild dependent atelectasis or scarring can be seen within the lower lobes. Within the posterior right middle lobe, there is poorly defined infiltrate seen, which does not seen on the prior CT dated 09/06/18. Heart size is normal. Solid organs: Liver is normal in size and enhancement. Incidental note is made of focal fatty infiltration adjacent to the falciform ligament, which is not regarded to be pathologic. Gallbladder wall is not thickened. Biliary system is non dilated. Pancreas enhances normally. Spleen is normal in size and enhancement. No adrenal nodules. Kidneys demonstrate normal size and enhancement, without hydronephrosis. A simple appearing, water-density left liver cyst is seen laterally measuring 13 mm. Peritoneum and bowel: There is a moderate amount of stool seen within the proximal colon. No dilated loops of small bowel are seen, although there several loops of small bowel demonstrate forming stool. The patient gives a prior history of appendectomy. No free air or significant free fluid can be seen. Nodes and vessels: No retroperitoneal or mesenteric adenopathy by size criteria. Aorta and inferior vena cava are normal in size. Miscellaneous: No ventral hernias. PELVIS: Genitourinary: Bladder wall thickness is normal. Miscellaneous: No inguinal hernias or adenopathy. Bones: No suspicious bony lesions. No vertebral body compression fractures. Mild levoconvex scoliotic curvature is noted. Age-appropriate bony degenerative changes are seen. 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 IMPRESSION: Mild right middle lobe infiltrate seen, which is new compared to the prior CT. There is a moderate amount of stool seen within the colon. Please correlate with an underlying history of constipation. No woody obstruction can be seen, although there are several loops of small bowel demonstrate forming stool, which is suggestive of stagnant small bowel contents. 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 on 11/15/2018 at 9:59 Approved by: Ryne Boykin M.D. on 11/15/2018 at 10:05 MDM Narrative Medical decision making narrative: Patient's labs are unremarkable. His CT scan does show stool in his colon and given the colicky nature of his abdominal pain this could very well be the cause of his symptoms. When he was not having a spike in his pain his abdomen was soft and nonacute. I do have a low suspicion for bowel obstruction however the patient was given return precautions with regard to this. Will have him start on a bowel regimen. I did discuss this with him and his daughter who was at bedside. They have all of the medications at home to include fiber and MiraLax. We discussed return precautions and follow-up instructions. He expressed understanding and agreement with plan. Discharge Plan Departure Patient Disposition: Home Clinical Impression: Abdominal pain Qualifiers: Abdominal location: unspecified location Qualified Code(s): R10.9 - Unspecified abdominal pain Instructions: Constipation (Alternative Therapy), Constipation, Acute Abdominal Pain Activity Restrictions/Additional Instructions: I recommend you follow-up with your primary provider. Take the laxative/stool softeners like we discussed. Return to the emergency department for any new symptoms, worsening pain, vomiting, fevers, or any other concerning symptoms. Prescriptions: No Action levothyroxine [Synthroid] 75 MCG tablet 0.075 mg PO QAM Qty: 0 RF: 0 hydrocortisone [Cortef] 20 MG tablet 20 mg PO DAILY Qty: 0 RF: 0 desmopressin 0.1 MG tablet 0.05 mg PO BEDTIME Qty: 0 RF: 0 latanoprost 0.005 % drops 1 drp OPHTH BEDTIME Qty: 0 RF: 0 aspirin 81 MG tablet,delayed release (DR/EC) 81 mg PO QAM Qty: 0 RF: 0 atorvastatin [Lipitor] 10 mg tablet 10 mg PO BEDTIME Qty: 90 RF: 0 valsartan 160 mg tablet 160 mg PO QPM RF: 0 Calcium 1 tab PO QNOON RF: 0 multivitamin Tablet 1 tab PO DAILY RF: 0 Referrals: Reyes Beckford MD [Primary Care Provider] -
[2018-11-15] MEDS: MORPHINE 4 MG/ML INJ IV (10:15)
[2018-11-15 10:16] LABS: Add Manual Diff / Slide Review NO; Basophils Absolute Auto 0 /uL (0-100); Basophils Percent Auto 0.3 % (0-2); Eosinophils Absolute Auto 200 /uL (0-450); Eosinophils Percent Auto 2.6 % (2-4); Hematocrit 35.4 % (41-53); Hemoglobin 11.8 g/dL (13.5-17.5); Lymphocytes Absolute Auto 1700 /uL (1100-4500); Lymphocytes Percent Auto 19.6 % (25-40); Mean Corpuscular HGB Conc 33.5 % (30-36); Mean Corpuscular Hemoglobin 29.1 PG (26-34); Mean Corpuscular Volume 87.1 fL (80-100); Monocytes Absolute Auto 600 /uL (0-900); Monocytes Percent Auto 7.6 % (3-14); Neutrophils Absolute Auto 5900 /uL (1500-7000); Neutrophils Percent Auto 69.9 % (50-75); Platelet Count 155 X10^3/uL (150-400); Red Blood Cell Count 4.07 X10^6/uL (4.5-5.9); Red Cell Distribution Width 14.1 % (11.6-14.8); White Blood Cell Count 8.4 X10^3/uL (4.5-11.0)
[2018-11-15 10:26] LABS: Alanine Aminotransferase 17 IU/L (21-72); Albumin 3.9 g/dL (3.5-5.0); Albumin Globulin Ratio 1.3 (1.0-2.8); Alkaline Phosphatase 68 U/L (38-126); Aspartate Aminotransferase 52 IU/L (17-59); BUN Creatinine Ratio 14.7 (6-22); Bilirubin Total 0.7 mg/dL (0.2-1.3); Blood Urea Nitrogen 28 mg/dL (9-20); Calcium 9.2 mg/dL (8.4-10.2); Carbon Dioxide 27 mmol/L (22-32); Chloride 100 mmol/L (98-107); Estimated Glomerular Filt Rate 34.1 mL/min (>60); Globulin 2.9 g/dL (1.7-4.1); Glucose 227 mg/dL (80-110); HEMOLYSIS < 15 (0-50); Lipase 149 U/L (23-300); Potassium 4.7 mmol/L (3.4-5.1); Sodium 137 mmol/L (137-145); Total Protein 6.8 g/dL (6.3-8.2)
[2018-11-15 11:06] LABS: Bacteria Urine None Seen; RBC Urine None Seen (0-5/HPF); WBC Urine None Seen (0-5/HPF)
[2018-11-15 11:14] VITALS: BP 159/66; PULSE 59; RESP 17; O2SAT 99
[2018-11-15 11:17] LABS: Culture Indicated Urine Cult Not Indicated; Squamous Epithelial Cell Urine 0-1 /HPF (0-5/HPF); Urine Comments Microscopic Normal
== END 2018-11-15 12:11 | disposition home or self-care (01) ==
PROVIDERS: Emergency Provider Emergency Medicine; PCP Family Medicine
DX: R10.9 Unspecified abdominal pain (principal)
CPT/HCPCS: 36591; 74177; 80053; 81003; 81015; 83690; 85025; 96374; 99282; 99285; J2270; Q9967

== ENCOUNTER 2018-12-21 08:58 | Day surgery (SDC) | payer MEDICARE, SELFPAY ==
[2018-12-21] MEDS: PROPARACAINE 0.5% OPHTH SOL 2 DROPS EYE-OP (09:39)
[2018-12-21] MEDS: CATARACT EYE COMPOUND (10 DROPS/SYRINGE) 3 DROPS EYE-OP ×3 (09:41→09:55)
[2018-12-21 09:47] VITALS: BP 194/73; PULSE 55; RESP 16; TEMP 36.2; O2SAT 100
[2018-12-21 09:48] VITALS: BP 194/73; PULSE 55; RESP 16; TEMP 36.2; O2SAT 100; BMI 25.2
--- NOTE | 2018-12-21 10:25 | PM.PREOP ---
Pre-operative Note Interval Note History & Physical reviewed/Exam performed by Physician: No Changes to H&P: No
--- NOTE | 2018-12-21 10:25 | PM.OP.1 ---
Operative Date/Time/Diagnoses Pre-op diagnosis: Nuclear Cataract Left eye Post-op diagnosis: same Procedure & Clinicians Surgeon: Car Carney Anesthesia Type: MAC +/- and Sedation Operative Notes Procedure in detail: Patient brought to the operating suite. Tetracaine drops placed in the left eye. Patient was prepped and draped in sterile manner. Wire lid speculum was placed in the eye. Betadine drops were placed on the eye. This was irrigated. Lidocaine jelly was placed on the eye. A paracentesis port was created with a side-port blade. 0.1 mL 1% preservative free lidocaine was injected into the anterior chamber. The anterior chamber was deepened with viscoelastic. 2.6 mm keratome was used to create a temporal clear corneal incision. Cystotome and Utrata forceps were used to create continuous tear capsulorrhexis. Balanced salt solution was used to hydro dissect the nucleus. The phacoemulsification handpiece was inserted and the nucleus was removed using the stop and chop technique. The irrigation aspiration handpiece was inserted and the remaining cortex was removed. Anterior chamber was deepened with viscoelastic. An Murphy ZCB00 intraocular lens with a power of 16.5 was injected into the capsular bag. Irrigation aspiration handpiece was inserted and the remaining viscoelastic was removed. Incision was hydrated with balanced salt solution and found to be leak free with pressure with Weck-Rebecca sponges. 0.1 mL Vigamox injected anterior chamber. 0.3 mL Kenalog 10 mg was injected subconjunctivally. Lid speculum was removed. The patient left the operating room in excellent condition. Complications: none Post-operative Condition: stable Disposition: same day surgery
[2018-12-21] MEDS: PHENYLEPHRINE/LIDOCAINE VIAL (OR) 0.2 ML EYE-OP (10:56)
[2018-12-21] MEDS: LIDOCAINE JELLY 2% 5 ML 1 APPLIC TOP (10:57)
[2018-12-21] MEDS: CHONDROIDTIN/SOD HYALURONATE 1.05 ML SYRINGE INTRAOCULA (10:57)
[2018-12-21] MEDS: TRIAMCINOLONE 50 MG/5 ML VIAL INJ (10:57)
[2018-12-21] MEDS: MOXIFLOXACIN 0.5% OPHTH 60 DROPS/BOTTLE DROPS EYE-BOTH (10:57)
[2018-12-21] MEDS: BALANCED SALT IRRIG SOLN NO.2 500 ML, EPINEPHrine 1 MG IRR (10:58)
[2018-12-21] MEDS: TETRACAINE 0.5% OPHTH DROPS 4 ML 2 DROPS EYE-OP (10:58)
[2018-12-21 11:08] VITALS: BP 167/71; PULSE 52; RESP 15; TEMP 36.6; O2SAT 100
[2018-12-21 11:32] VITALS: BP 146/58; PULSE 48; RESP 15; TEMP 36.4; O2SAT 100
== END 2018-12-21 11:42 ==
LOC: OR 09:00
PROVIDERS: PCP Family Medicine; Visit Provider Ophthalmology
PROC: (CPT 66984; principal; 2018-12-21 10:45)
DX: H25.12 Age-related nuclear cataract, left eye (principal)
CPT/HCPCS: 66984; J0171; J2250; J3010; J3301

== ENCOUNTER 2019-01-11 06:58 | Day surgery (SDC) | payer MEDICARE, SELFPAY ==
[2019-01-11] MEDS: PROPARACAINE 0.5% OPHTH SOL 2 DROPS EYE-OP (07:56)
[2019-01-11] MEDS: CATARACT EYE COMPOUND (10 DROPS/SYRINGE) 3 DROPS EYE-OP (07:59)
[2019-01-11 08:01] VITALS: BMI 25.3
[2019-01-11 08:05] VITALS: BP 167/66; PULSE 56; RESP 12; TEMP 35.9; O2SAT 99
--- NOTE | 2019-01-11 08:40 | PM.PREOP ---
Pre-operative Note Interval Note History & Physical reviewed/Exam performed by Physician: No Changes to H&P: No
--- NOTE | 2019-01-11 08:40 | PM.OP.1 ---
Operative Date/Time/Diagnoses Pre-op diagnosis: Nuclear cataract right eye Procedure & Clinicians Procedure: Cataract Surgery Same procedure as scheduled: Yes Surgeon: Car Carney Anesthesia Type: MAC +/- and Sedation Operative Notes Procedure in detail: Patient brought to the operating suite. Tetracaine drops placed in the right eye. Patient was prepped and draped in sterile manner. Wire lid speculum was placed in the eye. Betadine drops were placed on the eye. This was irrigated. Lidocaine jelly was placed on the eye. A paracentesis port was created with a side-port blade. 0.1 mL 1% preservative free lidocaine was injected into the anterior chamber. The anterior chamber was deepened with viscoelastic. 2.6 mm keratome was used to create a temporal clear corneal incision. Cystotome and Utrata forceps were used to create continuous tear capsulorrhexis. Balanced salt solution was used to hydro dissect the nucleus. The phacoemulsification handpiece was inserted and the nucleus was removed using the stop and chop technique. The irrigation aspiration handpiece was inserted and the remaining cortex was removed. Anterior chamber was deepened with viscoelastic. An Murphy ZCB00 intraocular lens with a power of 17.0 was injected into the capsular bag. Irrigation aspiration handpiece was inserted and the remaining viscoelastic was removed. Incision was hydrated with balanced salt solution and found to be leak free with pressure with Weck-Rebecca sponges. 0.1 mL Vigamox injected anterior chamber. 0.3 mL Kenalog 10 mg was injected subconjunctivally. Lid speculum was removed. The patient left the operating room in excellent condition. Complications: none Post-operative Condition: stable Disposition: same day surgery
--- NOTE | 2019-01-11 08:55 | SUR.OPER ---
Supine on eye stretcher, head on extension cradle secured with tape. Arms tucked at sides with blanket. Pillow under knees.
[2019-01-11] MEDS: TRIAMCINOLONE 50 MG/5 ML VIAL INJ (08:57)
[2019-01-11] MEDS: CHONDROIDTIN/SOD HYALURONATE 1.05 ML SYRINGE INTRAOCULA (08:57)
[2019-01-11] MEDS: PHENYLEPHRINE/LIDOCAINE VIAL (OR) 0.2 ML EYE-OP (08:57)
[2019-01-11] MEDS: BALANCED SALT IRRIG SOLN NO.2 500 ML, EPINEPHrine 1 MG IRR (08:58)
[2019-01-11] MEDS: TETRACAINE 0.5% OPHTH DROPS 4 ML 2 DROPS EYE-OP (08:58)
[2019-01-11] MEDS: LIDOCAINE JELLY 2% 5 ML 1 APPLIC TOP (08:58)
[2019-01-11] MEDS: MOXIFLOXACIN INJ 5 MG/ML VIAL EYE-OP (08:59)
[2019-01-11 09:11] VITALS: BP 176/79; PULSE 56; RESP 16; TEMP 36.4; O2SAT 100
== END 2019-01-11 09:20 | disposition home or self-care (01) ==
LOC: OR 07:00
PROVIDERS: PCP Family Medicine; Visit Provider Ophthalmology
PROC: (CPT 66984; principal; 2019-01-11 08:45)
DX: H25.11 Age-related nuclear cataract, right eye (principal)
CPT/HCPCS: 66984; J0171; J2250; J3010; J3301

== ENCOUNTER → 2019-03-31 10:05 | Outpatient (CLI) | payer MEDICARE, SELFPAY ==
--- NOTE | 2019-03-31 10:24 | DI.RAD.S_ITS ---
PROCEDURE: XR CHEST 2V INDICATIONS: [address] scan left lung abnormality TECHNIQUE: 2 views of the chest were acquired. COMPARISON: [facility], CT, CT CHEST W CON, 09/06/2018, 14:36. [facility], CR, XR CHEST 2V, 08/20/2018, 14:36. FINDINGS: Surgical changes and devices: None. Lungs and pleura: Linear scarring/atelectasis in left lower lung field is again seen, unchanged from previous CT study. No pleural effusions or pneumothorax. Mediastinum: Mediastinal contours are normal. Heart size is normal. Bones and chest wall: No suspicious bony abnormalities. Soft tissues appear unremarkable. IMPRESSION: Left basilar scarring/atelectasis not significantly changed from previous CT study. No acute cardiopulmonary pathology. Dictated by: Taz Bowser M.D. on 03/31/2019 at 11:02 Approved by: Taz Bowser M.D. on 03/31/2019 at 11:05
== END ==
PROVIDERS: Family Provider Family Medicine; PCP Family Medicine; Visit Provider Nurse Practitioner
DX: R91.8 Other nonspecific abnormal finding of lung field (principal); Z91.89 Other specified personal risk factors, not elsewhere classified; Z79.52 Long term (current) use of systemic steroids; E23.0 Hypopituitarism; E07.9 Disorder of thyroid, unspecified; N28.9 Disorder of kidney and ureter, unspecified; Z87.891 Personal history of nicotine dependence
CPT/HCPCS: 71046; 77080

== ENCOUNTER → 2019-04-22 08:38 | Outpatient (CLI) | payer MEDICARE, SELFPAY ==
[2019-04-22 09:47] LABS: Alanine Aminotransferase 18 IU/L (<50); Albumin 4.2 g/dL (3.5-5.0); Albumin Globulin Ratio 1.5 (1.0-2.8); Alkaline Phosphatase 67 U/L (38-126); Aspartate Aminotransferase 40 IU/L (17-59); BUN Creatinine Ratio 14.4 (6-22); Bilirubin Total 0.5 mg/dL (0.2-1.3); Blood Urea Nitrogen 26 mg/dL (9-20); Calcium 9.6 mg/dL (8.4-10.2); Carbon Dioxide 28 mmol/L (22-32); Chloride 103 mmol/L (98-107); Cholesterol 189 mg/dL (140-199); Estimated Glomerular Filt Rate 36.3 mL/min (>60); Globulin 2.8 g/dL (1.7-4.1); Glucose 77 mg/dL (80-110); HDL Cholesterol 95 mg/dL (40-60); HEMOLYSIS < 15 (0-50); LDL Cholesterol Calculated 75 mg/dL (<100); Potassium 4.5 mmol/L (3.4-5.1); Sodium 139 mmol/L (137-145); Triglycerides 93 mg/dL (35-150)
[2019-04-22 10:29] LABS: Thyroid Stimulating Hormone 0.06 uIU/mL (0.47-4.68)
== END ==
PROVIDERS: Family Provider Family Medicine; PCP Family Medicine; Referring Provider Family Medicine; Visit Provider Family Medicine
DX: E03.9 Hypothyroidism, unspecified (principal); N18.2 Chronic kidney disease, stage 2 (mild); E78.5 Hyperlipidemia, unspecified
CPT/HCPCS: 36415; 80053; 80061; 84443

== ENCOUNTER 2019-05-15 14:54 | Observation (INO) | payer MEDICARE, SELFPAY ==
[2019-05-15 14:47] VITALS: BP 111/70; PULSE 70; RESP 18; TEMP 36.6; O2SAT 96
--- NOTE | 2019-05-15 15:02 | DI.RAD.S_ITS ---
PROCEDURE: XR CHEST 1V INDICATIONS: chest pain TECHNIQUE: One view of the chest was acquired. COMPARISON: [facility], CR, XR CHEST 2V, 03/31/2019, 10:23. FINDINGS: Surgical changes and devices: None. Lungs and pleura: Lungs are clear. There is hyperinflation of the lungs with flattening of the hemidiaphragms compatible with COPD. No pleural effusions or pneumothorax. Mediastinum: Mediastinal contours appear normal. Heart size is normal. Bones and chest wall: No suspicious bony lesions. Overlying soft tissues appear unremarkable. IMPRESSION: 1. No acute cardiopulmonary disease. 2. Findings compatible with COPD redemonstrated. Dictated by: Shaheen Mullins M.D. on 05/15/2019 at 15:04 Approved by: Shaheen Mullins M.D. on 05/15/2019 at 15:05
--- NOTE | 2019-05-15 15:05 | DI.CT.S_ITS ---
PROCEDURE: CT HEAD/BRAIN WO CON INDICATIONS: hit head last night, fainted, not on thinners. TECHNIQUE: Noncontrast 4.5 mm thick angled axial sections acquired from the foramen magnum to the vertex, with coronal and sagittal reformats. For radiation dose reduction, the following was used: automated exposure control, adjustment of mA and/or kV according to patient size. COMPARISON: [facility], CT, CT HEAD/BRAIN WO CON, 07/05/2018, 14:13. FINDINGS: Image quality: There is mild motion artifact slightly limiting evaluation. CSF spaces: Basal cisterns are patent. No extra-axial fluid collections. The ventricles are symmetric in size and shape. There is mild cerebral volume loss, with resultant ventricular and sulcal prominence. Brain: No definite intracranial hemorrhage, mass, or mass effect. There are subcortical, periventricular and deep white matter hypodensities consistent with mild chronic small vessel ischemic changes. There is intracranial internal carotid artery atherosclerosis. Skull and face: Calvarium and visualized facial bones appear intact, without suspicious lesions. Sinuses: Visualized sinuses and mastoids are clear. IMPRESSION: 1. No definite acute intracranial abnormality. Dictated by: Shaheen Mullins M.D. on 05/15/2019 at 14:54 Approved by: Shaheen Mullins M.D. on 05/15/2019 at 14:56
[2019-05-15 15:36] LABS: INR 1.1 (0.9-1.3); Prothrombin Time 12.8 SECONDS (10.1-12.7)
[2019-05-15 15:37] LABS: Add Manual Diff / Slide Review NO; Basophils Absolute Auto 0 /uL (0-100); Basophils Percent Auto 0.4 % (0-2); Eosinophils Absolute Auto 300 /uL (0-450); Eosinophils Percent Auto 3.1 % (2-4); Hematocrit 39.4 % (41-53); Hemoglobin 13.1 g/dL (13.5-17.5); Lymphocytes Absolute Auto 900 /uL (1100-4500); Lymphocytes Percent Auto 11.6 % (25-40); Mean Corpuscular HGB Conc 33.3 % (30-36); Mean Corpuscular Hemoglobin 29.6 PG (26-34); Mean Corpuscular Volume 88.9 fL (80-100); Monocytes Absolute Auto 600 /uL (0-900); Monocytes Percent Auto 7.4 % (3-14); Neutrophils Absolute Auto 6300 /uL (1500-7000); Neutrophils Percent Auto 77.5 % (50-75); Platelet Count 134 X10^3/uL (150-400); Red Blood Cell Count 4.43 X10^6/uL (4.5-5.9); Red Cell Distribution Width 14.5 % (11.6-14.8); White Blood Cell Count 8.1 X10^3/uL (4.5-11.0)
[2019-05-15 15:39] LABS: PTT Partial Thromboplastin Tim 25 SECONDS (26.4-36.2)
[2019-05-15 15:40] LABS: Alanine Aminotransferase 16 IU/L (<50); Albumin 3.6 g/dL (3.5-5.0); Albumin Globulin Ratio 1.4 (1.0-2.8); Alkaline Phosphatase 50 U/L (38-126); Aspartate Aminotransferase 37 IU/L (17-59); BUN Creatinine Ratio 13.3 (6-22); Bilirubin Total 0.6 mg/dL (0.2-1.3); Blood Urea Nitrogen 48 mg/dL (9-20); Calcium 8.8 mg/dL (8.4-10.2); Carbon Dioxide 25 mmol/L (22-32); Chloride 107 mmol/L (98-107); Creatine Kinase 127 U/L (55-170); Estimated Glomerular Filt Rate 16.3 mL/min (>60); Globulin 2.5 g/dL (1.7-4.1); Glucose 100 mg/dL (80-110); HEMOLYSIS < 15 (0-50); Lipase 194 U/L (23-300); Potassium 4.9 mmol/L (3.4-5.1); Sodium 141 mmol/L (137-145); Total Protein 6.1 g/dL (6.3-8.2)
[2019-05-15 15:47] VITALS: BP 128/58; BP 129/60; BP 140/63
[2019-05-15 15:49] VITALS: BP 128/58; BP 129/60; BP 140/63; PULSE 62; PULSE 66; PULSE 69
[2019-05-15 15:55] LABS: CKMB % Relative Index 0.6 % (1.5-5.0); Creatine Kinase MB 0.71 ng/mL (<2.37)
--- NOTE | 2019-05-15 16:01 | ED_ITS ---
HPI - General Adult General Chief complaint: Syncope Stated complaint: Weakness/orthostatic Time Seen by Provider: 05/15/19 15:12 Source: patient and EMS Mode of arrival: EMS Limitations: no limitations History of Present Illness HPI narrative: 83-year-old male. Not on anticoagulation here for evaluation after states having greater than 10 episodes of vomiting and diarrhea since last evening. No recent travel. No recent antibiotics. Did not vomit this morning. Has not been able to keep any of his medicines or fluids or food down since last evening. He states that his daughter called today around noon and he was still in bed which was not normal for him. She came to evaluate the patient and called EMS because the patient was very lightheaded and weak. Denies any chest pain or shortness of breath. At the time of my evaluation patient did receive 1 L of fluids by EMS and he states he is feeling much better. Has not had any diarrhea or vomiting in 12 hours. Related Data Home Medications Medication Instructions Recorded Confirmed hydrocortisone [Cortef] 20 mg PO DAILY #0 09/30/16 01/11/19 levothyroxine [Synthroid] 0.075 mg PO QAM #0 09/30/16 01/11/19 desmopressin 0.05 mg PO BEDTIME #0 01/14/17 01/11/19 aspirin 81 mg PO QAM #0 01/21/17 01/11/19 latanoprost 1 drp EYE-BOTH BEDTIME #0 01/21/17 01/11/19 calcium carbonate [Calcium 500] 500 mg PO DAILY 07/05/18 01/11/19 multivitamin 1 tab PO DAILY 07/05/18 01/11/19 valsartan 160 mg PO QPM 07/05/18 01/11/19 Previous Rx's Medication Instructions Recorded atorvastatin 10 mg tablet 10 mg PO QPM #90 tab 04/22/19 Allergies Allergy/AdvReac Type Severity Reaction Status Date / Time No Known Drug Allergies Allergy Unknown Verified 01/11/19 07:56 [NO KNOWN DRUG ALLERGIES] Review of Systems Constitutional Constitutional: Denies fever(s), Denies frequent falls, Denies headache(s), Reports lethargy and Reports malaise ENT Ears, Nose, Mouth, and Throat: Denies headache(s) and Denies disequilibrium Cardiovascular Cardiovascular: Denies chest pain and Denies dyspnea Respiratory Respiratory: Denies dyspnea Gastrointestinal Gastrointestinal: Denies abdominal pain, Reports diarrhea, Reports nausea and Reports vomiting Genitourinary Genitourinary: Denies dysuria Musculoskeletal Musculoskeletal: Denies myalgias and Denies arthralgias Integumentary/Breasts Skin/Breast: Denies lesions and Denies rash Neurologic Neurologic: Denies behavioral changes, Denies frequent falls, Denies headache (s), Denies focal weakness, Denies paresthesias and Denies disequilibrium Psychiatric Psychiatric: Denies behavioral changes Hematologic/Lymphatic Hematologic/Lymphatic: Denies easy bleeding and Denies easy bruising Patient History Medical History Hyperlipidemia (11/30/14) Hypertension (11/30/14) Surgical History Status post appendectomy Family History Grandfather Mental health problem Grandmother Hypertension Mother Age: 105 Colon cancer Grandfather Heart disease Social History household members: spouse Smoking Status: Unknown if ever smoked Smoking Status: Unknown if ever smoked Substance Use Type: does not use Exam Initial Vital Signs Initial Vital Signs: Vital Signs Temperature 97.8 F 05/15/19 14:47 Pulse Rate 70 05/15/19 14:47 Respiratory Rate 18 05/15/19 14:47 Blood Pressure 111/70 05/15/19 14:47 Pulse Oximetry 96 05/15/19 14:47 Const General: cooperative, healthy appearing and comfortable Limitations: mental status not altered HENTX Head: normal to inspection and normocephalic Resp Effort & Inspection: normal respiratory effort Auscultation: clear to auscultation bilaterally Cardio Rate: regular rate Rhythm: regular rhythm GI Inspection: non-distended Palpation: soft Skin Lesions: no lesions Rashes: no rashes Neuro General: alert and awake Cognition: normal cognition Speech: speech normal Gait: normal gait Extrem General: normal to inspection and capillary refill normal Psych Appearance: grossly normal and well kempt Course Orders Ordered: ED Orders 05/15/19 15:02 XR chest 1V Stat EKG-12 Lead Stat 05/15/19 15:05 CT head/brain wo con Stat 05/15/19 15:17 Complete Blood Count AUTO DIFF Stat Comprehensive Metabolic Panel Stat Lipase Stat Partial Thromboplastin Time Stat Prothrombin Time INR Stat Troponin & CK Cardiac Panel Stat 05/15/19 17:30 Basic Metabolic Panel Stat Creatine Kinase Stat Troponin I Stat 05/15/19 18:18 EKG-12 Lead Stat 05/15/19 18:21 US renal complete Stat Sodium Chloride (Normal Saline 0.9%) 1,000 mls @ 125 mls/hr IV CONT NATALEE Discontinued Medications Sodium Chloride (Normal Saline 0.9%) 1,000 mls @ 1,000 mls/hr IV BOLUS ONE Stop: 05/15/19 17:01 Last Infusion: 05/15/19 17:48 Dose: 0 mls/hr Documented by: Admin: 05/15/19 16:15 Dose: 1,000 mls/hr Documented by: JOANNE Vital Signs Vital signs: Vital Signs - 8 hr 05/15/19 14:47 05/15/19 15:47 05/15/19 15:49 Temperature 97.8 F Pulse Rate 70 Pulse Rate [Orthostatic Lying] 62 Pulse Rate [Orthostatic Sitting] 66 Pulse Rate [Orthostatic Standing] 69 Respiratory Rate 18 Blood Pressure 111/70 Blood Pressure [Orthostatic Lying] 128/58 L 128/58 L Blood Pressure [Orthostatic Sitting] 140/63 140/63 Blood Pressure [Orthostatic Standing] 129/60 129/60 Blood Pressure [Right Arm] Pulse Oximetry 96 05/15/19 17:42 05/15/19 17:51 Temperature Pulse Rate 70 Pulse Rate [Orthostatic Lying] 67 Pulse Rate [Orthostatic Sitting] 72 Pulse Rate [Orthostatic Standing] 69 Respiratory Rate 17 Blood Pressure Blood Pressure [Orthostatic Lying] 156/09 H Blood Pressure [Orthostatic Sitting] 123/57 L Blood Pressure [Orthostatic Standing] 118/54 L Blood Pressure [Right Arm] 128/53 L Pulse Oximetry 98 Medical Decision Making Lab Data Lab results reviewed: Yes I reviewed the patient's lab results. Result diagrams: 05/15/19 15:17 05/15/19 17:30 Labs: Lab Results 05/15/19 05/15/19 05/15/19 Range/Units 15:17 15:17 15:17 WBC 8.1 (4.5-11.0) X10^3/uL RBC 4.43 L (4.5-5.9) X10^6/uL Hgb 13.1 L (13.5-17.5) g/dL Hct 39.4 L (41-53) % MCV 88.9 (80-100) fL MCH 29.6 (26-34) PG MCHC 33.3 (30-36) % RDW 14.5 (11.6-14.8) % Plt Count 134 L (150-400) X10^3/uL Neut % (Auto) 77.5 H (50-75) % Lymph % (Auto) 11.6 L (25-40) % [place] % (Auto) 7.4 (3-14) % Eos % (Auto) 3.1 (2-4) % Baso % (Auto) 0.4 (0-2) % Neut # (Auto) 6300 (3169-0861) /uL Lymph # (Auto) 900 L (0879-2492) /uL [place] # (Auto) 600 (0-900) /uL Eos # (Auto) 300 (0-450) /uL Baso # (Auto) 0 (0-100) /uL PT 12.8 H (10.1-12.7) SECONDS INR 1.1 (0.9-1.3) APTT 25 L (26.4-36.2) SECONDS Sodium 141 (137-145) mmol/L Potassium 4.9 (3.4-5.1) mmol/L Chloride 107 (98-107) mmol/L Carbon Dioxide 25 (22-32) mmol/L BUN 48 H (9-20) mg/dL Creatinine 3.60 H (0.66-1.25) mg/dL Estimated GFR 16.3 L (>60) mL/min BUN/Creatinine Ratio 13.3 (6-22) Glucose 100 (80-110) mg/dL Calcium 8.8 (8.4-10.2) mg/dL Total Bilirubin 0.6 (0.2-1.3) mg/dL AST 37 (17-59) IU/L ALT 16 (<50) IU/L Alkaline Phosphatase 50 (38-126) U/L Total Creatine Kinase 127 (55-170) U/L CK-MB (CK-2) 0.71 (<2.37) ng/mL CK-MB (CK-2) Rel Index 0.6 L (1.5-5.0) % Troponin I 0.070 H (0.01-0.034) ng/mL Total Protein 6.1 L (6.3-8.2) g/dL Albumin 3.6 (3.5-5.0) g/dL Globulin 2.5 (1.7-4.1) g/dL Albumin/Globulin Ratio 1.4 (1.0-2.8) Lipase 194 (23-300) U/L 05/15/19 05/15/19 05/15/19 Range/Units 17:30 17:30 17:30 WBC (4.5-11.0) X10^3/uL RBC (4.5-5.9) X10^6/uL Hgb (13.5-17.5) g/dL Hct (41-53) % MCV (80-100) fL MCH (26-34) PG MCHC (30-36) % RDW (11.6-14.8) % Plt Count (150-400) X10^3/uL Neut % (Auto) (50-75) % Lymph % (Auto) (25-40) % [place] % (Auto) (3-14) % Eos % (Auto) (2-4) % Baso % (Auto) (0-2) % Neut # (Auto) (0024-4711) /uL Lymph # (Auto) (7512-5685) /uL [place] # (Auto) (0-900) /uL Eos # (Auto) (0-450) /uL Baso # (Auto) (0-100) /uL PT (10.1-12.7) SECONDS INR (0.9-1.3) APTT (26.4-36.2) SECONDS Sodium 141 (137-145) mmol/L Potassium 4.5 (3.4-5.1) mmol/L Chloride 109 H (98-107) mmol/L Carbon Dioxide 23 (22-32) mmol/L BUN 45 H (9-20) mg/dL Creatinine 3.20 H (0.66-1.25) mg/dL Estimated GFR 18.7 L (>60) mL/min BUN/Creatinine Ratio 14.1 (6-22) Glucose 84 (80-110) mg/dL Calcium 8.1 L (8.4-10.2) mg/dL Total Bilirubin (0.2-1.3) mg/dL AST (17-59) IU/L ALT (<50) IU/L Alkaline Phosphatase (38-126) U/L Total Creatine Kinase 163 (55-170) U/L CK-MB (CK-2) (<2.37) ng/mL CK-MB (CK-2) Rel Index (1.5-5.0) % Troponin I 0.127 H* (0.01-0.034) ng/mL Total Protein (6.3-8.2) g/dL Albumin (3.5-5.0) g/dL Globulin (1.7-4.1) g/dL Albumin/Globulin Ratio (1.0-2.8) Lipase (23-300) U/L Imaging Data CT scan - head: Radiologist's Impression: [address] [address] [address] Scan Report Signed Patient: Pablo Saez LMR#: [id number] : 7Acct:[id number] Age/Sex: 83 / MDate of Service: 05/15/19 Loc: ED Accession Number: [id number] Procedure: CT head/brain wo con Ordering Provider: Pritesh Jansen D.O. PROCEDURE: CT HEAD/BRAIN WO CON INDICATIONS: hit head last night, fainted, not on thinners. TECHNIQUE: Noncontrast 4.5 mm thick angled axial sections acquired from the foramen magnum to the vertex, with coronal and sagittal reformats. For radiation dose reduction, the following was used: automated exposure control, adjustment of mA and/or kV according to patient size. COMPARISON: [facility], CT, CT HEAD/BRAIN WO CON, 07/05/2018, 14:13. FINDINGS: Image quality: There is mild motion artifact slightly limiting evaluation. CSF spaces: Basal cisterns are patent. No extra-axial fluid collections. The ventricles are symmetric in size and shape. There is mild cerebral volume loss, with resultant ventricular and sulcal prominence. Brain: No definite intracranial hemorrhage, mass, or mass effect. There are subcortical, periventricular and deep white matter hypodensities consistent with mild chronic small vessel ischemic changes. There is intracranial internal carotid artery atherosclerosis. Skull and face: Calvarium and visualized facial bones appear intact, without suspicious lesions. Sinuses: Visualized sinuses and mastoids are clear. IMPRESSION: 1. No definite acute intracranial abnormality. Dictated by: Shaheen Mullins M.D. on 05/15/2019 at 14:54 Approved by: Shaheen Mullins M.D. on 05/15/2019 at 14:56 Chest x-ray: Radiologist's Impression: [address] [address] XRay Report Signed Patient: Pablo Saez LMR#: [id number] : 7Acct:[id number] Age/Sex: 83 / MDate of Service: 05/15/19 Loc: ED Accession Number: [id number] Procedure: XR chest 1V Ordering Provider: Pritesh Jansen D.O. PROCEDURE: XR CHEST 1V INDICATIONS: chest pain TECHNIQUE: One view of the chest was acquired. COMPARISON: [facility], , XR CHEST 2V, 03/31/2019, 10:23. FINDINGS: Surgical changes and devices: None. Lungs and pleura: Lungs are clear. There is hyperinflation of the lungs with flattening of the hemidiaphragms compatible with COPD. No pleural effusions or pneumothorax. Mediastinum: Mediastinal contours appear normal. Heart size is normal. Bones and chest wall: No suspicious bony lesions. Overlying soft tissues appear unremarkable. IMPRESSION: 1. No acute cardiopulmonary disease. 2. Findings compatible with COPD redemonstrated. Dictated by: Shaheen Mullins M.D. on 05/15/2019 at 15:04 Approved by: Shaheen Mullins M.D. on 05/15/2019 at 15:05 ECG Data Attestation: I personally reviewed and interpreted this ECG as follows: Prior ECG tracings: not available for review Interpretation: Sinus rhythm Ventricular rate of [address] T wave changes Repeat EKG unchanged from prior MDM Narrative Medical decision making narrative: Patient initially arrived orthostatic and this improved with fluids. After 1 L fluids patient was still having a dry mucous membranes however was no longer orthostatic. He was tolerating oral intake. Initial labs came back is an increase in his creatinine a decrease in his GFR. He also had a slight bump in his troponin. Had a nonspecific ST changes on his EKG. No chest pain no shortness of breath. He received another L of fluids. Ambulated to the bathroom without any problems. He states that he was back to baseline. Repeat labs show no change in his creatinine. His repeat troponin was also slightly more elevated. Repeat EKG shows no change from the initial. I did discuss the case with Dr. Anaya who's on-call for cardiology who stated that she would treat the patient's dehydration and creatinine. She did not think that he was a candidate for catheterization given his creatinine and his clinical presentation. I then discussed the case with Dr Hardin who is on-call for the patient's primary provider who will accept for IV hydration and continued trending of his troponins and possible echocardiogram tomorrow. I did discuss this with the patient. He expressed understanding and agreement. Cardiology recommend holding on any heparin. Discharge Plan Departure Patient Disposition: Admitted as Observation Clinical Impression: Dehydration, Acute kidney injury, Elevated troponin Admit Date/Time: 05/15/19 18:35 Admit Provider: Simona Hardin
[2019-05-15] MEDS: SODIUM CHLORIDE 0.9% 1,000 ML 1000 ML IV (16:15)
[2019-05-15 17:42] VITALS: BP 118/54; BP 123/57; BP 156/09; PULSE 67; PULSE 69; PULSE 72
[2019-05-15 17:51] VITALS: BP 128/53; PULSE 70; RESP 17; O2SAT 98
[2019-05-15 17:52] LABS: BUN Creatinine Ratio 14.1 (6-22); Blood Urea Nitrogen 45 mg/dL (9-20); Calcium 8.1 mg/dL (8.4-10.2); Carbon Dioxide 23 mmol/L (22-32); Chloride 109 mmol/L (98-107); Estimated Glomerular Filt Rate 18.7 mL/min (>60); Glucose 84 mg/dL (80-110); HEMOLYSIS 16 (0-50); Potassium 4.5 mmol/L (3.4-5.1); Sodium 141 mmol/L (137-145)
[2019-05-15 18:07] LABS: Troponin I 0.127 ng/mL (0.01-0.034)
[2019-05-15 18:25] LABS: Creatine Kinase 163 U/L (55-170)
[2019-05-15 19:08] VITALS: BMI 25.3
[2019-05-15] MEDS: SODIUM CHLORIDE 0.9% 1,000 ML 125 ML IV (19:45)
[2019-05-15 19:52] VITALS: BP 108/57; PULSE 64; RESP 18; TEMP 36.4; O2SAT 100
[2019-05-15] MEDS: ATORVASTATIN 10 MG TABLET PO (22:22)
--- NOTE | 2019-05-15 23:41 | PC.NURSE ---
Admit/Evening Shift Note- Patient arrived to room via stretcher at 1933. Patient able to wake with steady gait and no walker from strethcer to bathroom and then to bed. Amdit completed. called Dr. Hardin to confirm patient does not need tele monitor. Dr. Hardin stated she had talked to rn [facility] and they decided tele was not needed. safety measures in place. bed alarm activated. will continue to monitor.
[2019-05-16 00:45] VITALS: BP 135/57; PULSE 56; RESP 20; TEMP 36.7; O2SAT 97
[2019-05-16 02:11] LABS: Blood Urea Nitrogen 42 mg/dL (9-20); Calcium 7.8 mg/dL (8.4-10.2); Carbon Dioxide 25 mmol/L (22-32); Chloride 109 mmol/L (98-107); Estimated Glomerular Filt Rate 21.8 mL/min (>60); Glucose 91 mg/dL (80-110); HEMOLYSIS < 15 (0-50); Potassium 4.4 mmol/L (3.4-5.1); Sodium 140 mmol/L (137-145)
--- NOTE | 2019-05-16 02:31 | PC.NURSE ---
Patient seen and assessed at 0054. Is alert and oriented. Breath sounds diminished but CTA with RA sat of 97%. HRR but bradycardic in 50's. Denies any nausea. BT present and abdomen is soft. Denies pain. Independent with bed mobility but because of fall just prior to coming to hospital patient instructed to call for assistance when getting out of bed although seems steady on feet and denies dizziness or lightheadedness. Has a bruise with abrasion on left elbow. Calf SCD's applied as per MD order. Fall risk score is high and bed alarm is activated.
[2019-05-16 02:59] LABS: Troponin I 0.171 ng/mL (0.01-0.034)
[2019-05-16] MEDS: SODIUM CHLORIDE 0.9% 1,000 ML 125 ML IV ×2 (04:03→11:47)
--- NOTE | 2019-05-16 07:39 | PM.HP.1 ---
History of Present Illness History of Present Illness Date Patient Seen: 05/16/19 Time Patient Seen: 08:00 Chief complaint: Weakness/orthostatic Narrative: Pt is an 83yo man with hypothyroidism, CKD, and hx of pituitary adenoma who presented with weakness. The pt reports that the evening of , after having some wine and small snacks, he developed abdominal discomfort. He then went to the restroom and had mixed formed and liquid stool. A little later, he had multiple bouts of emesis in addition to more diarrhea. The pt reports having more than 10 episodes of emesis. The pt then went to bed, and slept through the night. He woke the next day when his daughter called, around noon. It is highly unusual for him to sleep that late into the day. She came over to see him, concerned, and found him very weak and barely able to ambulate. EMS was then called and he was taken to the hospital. The pt denies any abdominal pain, nausea, vomiting, or diarrhea since the evening of . He did not have anything to eat or drink yesterday. He denies any chest pain, SOB, or LE edema. Prior to the evening of he was feeling well. His did have some diarrhea earlier in the week, but no other known sick contacts. He denies eating anything unusual. This morning, the pt reports feeling nearly back to baseline. He denies any further nausea, vomiting, or diarrhea. He has not had a BM since the evening of . He continues to deny any chest pain, SOB, LE edema. He feels ready to return home. Patient History Medical History Hyperlipidemia (11/30/14) Hypertension (11/30/14) Surgical History Status post appendectomy Family & Social History Family History Grandfather Mental health problem Grandmother Hypertension Mother Age: 105 Colon cancer Grandfather Heart disease Social History: household members spouse Prior Living Arrangements House Safety & Behavioral: Feels Safe in Current Yes Environment Been Physically Hurt or No Threatened By a Person Suicidal Ideation Description None Suicide Plan Description No Plan Tobacco & Substance use: Smoking Status Former smoker alcohol intake current alcohol intake frequency a few times a week Substance Use Type does not use Meds Home Medications and Allergies Home Medications Medication Instructions Recorded Confirmed Type hydrocortisone [Cortef] 20 mg PO DAILY #0 09/30/16 05/16/19 History levothyroxine [Synthroid] 0.075 mg PO QAM #0 09/30/16 05/16/19 History desmopressin 0.05 mg PO BEDTIME #0 01/14/17 05/16/19 History aspirin 81 mg PO QAM #0 01/21/17 05/16/19 History latanoprost 1 drp EYE-BOTH BEDTIME #0 01/21/17 05/16/19 History calcium carbonate [Calcium 500] 500 mg PO DAILY 07/05/18 05/16/19 History multivitamin 1 tab PO DAILY 07/05/18 05/16/19 History valsartan 160 mg PO QPM 07/05/18 05/16/19 History atorvastatin 10 mg tablet 10 mg PO QPM #90 tab 04/22/19 05/16/19 Rx Allergies Allergy/AdvReac Type Severity Reaction Status Date / Time No Known Drug Allergies Allergy Unknown Verified 01/11/19 07:56 [NO KNOWN DRUG ALLERGIES] Review of Systems Constitutional Constitutional: Denies chills, Denies fever(s), Reports lack of energy, Reports poor appetite and Reports weakness Cardiovascular Cardiovascular: Denies chest pain, Denies fainting, Denies leg swelling, Denies rapid, pounding, or irregular heartbeat and Denies shortness of breath Respiratory Respiratory: Denies cough, Denies dyspnea and Denies wheezing Gastrointestinal Gastrointestinal: Reports abdominal pain, Denies hematochezia, Denies heartburn, Reports loose stools, Reports vomiting and Denies hematemesis Genitourinary Genitourinary: Denies dysuria Musculoskeletal Musculoskeletal: Denies myalgias and Denies arthralgias Neurologic Neurologic: Denies syncope and Reports weakness Endocrine Endocrine: Denies palpitations Allergic/Immunologic Allergic/Immunologic: Denies wheezing Exam Vital Signs (past 8 hours): - 05/16/19 00:45 Temperature 98.1 F Pulse Rate 56 L Respiratory Rate 20 Blood Pressure 135/57 L Pulse Oximetry 97 Oxygen Delivery Method Room Air Oxygen Flow Rate 0 Narrative Exam Narrative: GEN - alert, cooperative and no distress, appears well, sitting comfortably in chair HEENT - normocephalic and atraumatic, moist mucus membranes NECK - FROM, no adenopathy HEART - RRR, S1, S2 normal, no S3 or S4, no murmurs LUNGS - symmetric chest rise, no accessory muscles, clear to auscultation bilaterally ABD - flat, nondistended, normal bowel sounds, soft, nontender and no hepatomegaly, splenomegaly or masses EXT - no cyanosis, clubbing or edema SKIN - no rashes or suspicious lesions NEURO - no gross deficits Objective Labs Result Diagrams: 05/15/19 15:17 05/16/19 01:55 Labs: Laboratory Results - last 24 hr 05/15/19 05/15/19 05/15/19 15:17 15:17 15:17 WBC 8.1 RBC 4.43 L Hgb 13.1 L Hct 39.4 L MCV 88.9 MCH 29.6 MCHC 33.3 RDW 14.5 Plt Count 134 L Neut % (Auto) 77.5 H Lymph % (Auto) 11.6 L [place] % (Auto) 7.4 Eos % (Auto) 3.1 Baso % (Auto) 0.4 Neut # (Auto) 6300 Lymph # (Auto) 900 L [place] # (Auto) 600 Eos # (Auto) 300 Baso # (Auto) 0 PT 12.8 H INR 1.1 APTT 25 L Sodium 141 Potassium 4.9 Chloride 107 Carbon Dioxide 25 BUN 48 H Creatinine 3.60 H Estimated GFR 16.3 L BUN/Creatinine Ratio 13.3 Glucose 100 Calcium 8.8 Total Bilirubin 0.6 AST 37 ALT 16 Alkaline Phosphatase 50 Total Creatine Kinase 127 CK-MB (CK-2) 0.71 CK-MB (CK-2) Rel Index 0.6 L Troponin I 0.070 H Total Protein 6.1 L Albumin 3.6 Globulin 2.5 Albumin/Globulin Ratio 1.4 Lipase 194 05/15/19 05/15/19 05/15/19 17:30 17:30 17:30 WBC RBC Hgb Hct MCV MCH MCHC RDW Plt Count Neut % (Auto) Lymph % (Auto) [place] % (Auto) Eos % (Auto) Baso % (Auto) Neut # (Auto) Lymph # (Auto) [place] # (Auto) Eos # (Auto) Baso # (Auto) PT INR APTT Sodium 141 Potassium 4.5 Chloride 109 H Carbon Dioxide 23 BUN 45 H Creatinine 3.20 H Estimated GFR 18.7 L BUN/Creatinine Ratio 14.1 Glucose 84 Calcium 8.1 L Total Bilirubin AST ALT Alkaline Phosphatase Total Creatine Kinase 163 CK-MB (CK-2) CK-MB (CK-2) Rel Index Troponin I 0.127 H* Total Protein Albumin Globulin Albumin/Globulin Ratio Lipase 05/16/19 05/16/19 01:55 01:55 WBC RBC Hgb Hct MCV MCH MCHC RDW Plt Count Neut % (Auto) Lymph % (Auto) [place] % (Auto) Eos % (Auto) Baso % (Auto) Neut # (Auto) Lymph # (Auto) [place] # (Auto) Eos # (Auto) Baso # (Auto) PT INR APTT Sodium 140 Potassium 4.4 Chloride 109 H Carbon Dioxide 25 BUN 42 H Creatinine 2.80 H Estimated GFR 21.8 L BUN/Creatinine Ratio 15.0 Glucose 91 Calcium 7.8 L Total Bilirubin AST ALT Alkaline Phosphatase Total Creatine Kinase CK-MB (CK-2) CK-MB (CK-2) Rel Index Troponin I 0.171 H* Total Protein Albumin Globulin Albumin/Globulin Ratio Lipase Assessment & Plan Assessment & Plan narrative: Pt is an 83yo man with hypothyroidism, CKD, and hx of pituitary adenoma who presented with weakness, found to have significant dehydration with resultant acute kidney injury. Dehydration the result of vomiting and diarrhea, most likely due to limited gastritis. No residual symptoms, pt now eating without issues this morning. Creatinine gradually improving with IV fluids. Pts troponin also found to be elevated without EKG changes or symptoms. Continued to trend up last night. ER physician discussed with Cardiology, who did not recommend any treatment or intervention. Most likely due to elevated creatinine, and possible slight bump from dehydration as well. 1) Dehydration with MARK: - Continue IVF - Repeat BMP this morning 2) Elevated troponin: - Continue to trend. No significant jump, but need to see downward trajectory. 3) Hypertension: BP now good range - Continue Valsartan 4) Hx of pituitary adenoma: - Continue Desmopressin, Hydrocortisone FEN: General diet Code: Full DVT: SCDs, mobile in room Dispo: Pending late morning labs and improvement in troponin and creatinine. Likely d/c later today.
[2019-05-16 08:00] VITALS: BP 126/54; PULSE 63; RESP 18; TEMP 36.6; O2SAT 99
[2019-05-16] MEDS: LEVOTHYROXINE 75 MCG TABLET PO (08:25)
[2019-05-16] MEDS: ASPIRIN EC 81 MG TABLET PO (08:25)
[2019-05-16] MEDS: HYDROCORTISONE 10 MG TABLET 20 MG PO (08:27)
--- NOTE | 2019-05-16 11:28 | PC.NURSE ---
Lab contacted to ensure labs are drawn as ordered. Awaiting results. Patient sleeping comfortably in bed, denies any complaints after breakfast. IVF as ordered infusing. Continue to follow.
[2019-05-16 12:11] LABS: BUN Creatinine Ratio 14.2 (6-22); Blood Urea Nitrogen 34 mg/dL (9-20); Calcium 8.2 mg/dL (8.4-10.2); Carbon Dioxide 24 mmol/L (22-32); Chloride 111 mmol/L (98-107); Glucose 92 mg/dL (80-110); HEMOLYSIS < 15 (0-50); Potassium 4.1 mmol/L (3.4-5.1); Sodium 142 mmol/L (137-145)
[2019-05-16 12:20] LABS: Troponin I 0.105 ng/mL (0.01-0.034)
--- NOTE | 2019-05-16 12:28 | PM.DS.1 ---
History of Present Illness History of Present Illness Chief complaint: Weakness/orthostatic Narrative: Pt is an 83yo man with hypothyroidism, CKD, and hx of pituitary adenoma who presented with weakness. The pt reports that the evening of , after having some wine and small snacks, he developed abdominal discomfort. He then went to the restroom and had mixed formed and liquid stool. A little later, he had multiple bouts of emesis in addition to more diarrhea. The pt reports having more than 10 episodes of emesis. The pt then went to bed, and slept through the night. He woke the next day when his daughter called, around noon. It is highly unusual for him to sleep that late into the day. She came over to see him, concerned, and found him very weak and barely able to ambulate. EMS was then called and he was taken to the hospital. The pt denies any abdominal pain, nausea, vomiting, or diarrhea since the evening of . He did not have anything to eat or drink yesterday. He denies any chest pain, SOB, or LE edema. Prior to the evening of he was feeling well. His did have some diarrhea earlier in the week, but no other known sick contacts. He denies eating anything unusual. This morning, the pt reports feeling nearly back to baseline. He denies any further nausea, vomiting, or diarrhea. He has not had a BM since the evening of . He continues to deny any chest pain, SOB, LE edema. He feels ready to return home. Discharge Providers Provider Date of admission: 05/15/19 18:35 Discharge Date: 05/16/19 Primary care physician: Reyes Beckford MD Discharge provider: Simona Hardin MD Summary Hospital Course Discharge Diagnosis: Dehydration Acute kidney injury Elevated troponin - Type II LA Hypertension Hx pituitary adenoma Hospital Course: The pt was admitted due to MARK from dehydration, and elevated troponin thought to be due to elevated creatinine and dehydration. He received IVF overnight, with significant improvement in his creatinine, and eventual downward trend in his troponin. He will be discharged home with instructions to continue increased fluid intake, and plans for repeat BMP next week. Status at Discharge Cognitive/behavioral status at discharge: oriented Functional status at discharge: independent ambulation Overall status at discharge: patient is back to baseline Time Spent with Patient Time spent: Greater than 30 minutes Exam Vital Signs (past 8 hours): - 05/16/19 08:00 Temperature 97.8 F Pulse Rate 63 Respiratory Rate 18 Blood Pressure 126/54 L Pulse Oximetry 99 Oxygen Delivery Method Room Air Oxygen Flow Rate 0 Narrative Exam Narrative: See exam from earlier today Objective Labs Result Diagrams: 05/15/19 15:17 05/16/19 11:45 Labs: Laboratory Results - last 24 hr 05/15/19 05/15/19 05/15/19 15:17 15:17 15:17 WBC 8.1 RBC 4.43 L Hgb 13.1 L Hct 39.4 L MCV 88.9 MCH 29.6 MCHC 33.3 RDW 14.5 Plt Count 134 L Neut % (Auto) 77.5 H Lymph % (Auto) 11.6 L [place] % (Auto) 7.4 Eos % (Auto) 3.1 Baso % (Auto) 0.4 Neut # (Auto) 6300 Lymph # (Auto) 900 L [place] # (Auto) 600 Eos # (Auto) 300 Baso # (Auto) 0 PT 12.8 H INR 1.1 APTT 25 L Sodium 141 Potassium 4.9 Chloride 107 Carbon Dioxide 25 BUN 48 H Creatinine 3.60 H Estimated GFR 16.3 L BUN/Creatinine Ratio 13.3 Glucose 100 Calcium 8.8 Total Bilirubin 0.6 AST 37 ALT 16 Alkaline Phosphatase 50 Total Creatine Kinase 127 CK-MB (CK-2) 0.71 CK-MB (CK-2) Rel Index 0.6 L Troponin I 0.070 H Total Protein 6.1 L Albumin 3.6 Globulin 2.5 Albumin/Globulin Ratio 1.4 Lipase 194 05/15/19 05/15/19 05/15/19 17:30 17:30 17:30 WBC RBC Hgb Hct MCV MCH MCHC RDW Plt Count Neut % (Auto) Lymph % (Auto) [place] % (Auto) Eos % (Auto) Baso % (Auto) Neut # (Auto) Lymph # (Auto) [place] # (Auto) Eos # (Auto) Baso # (Auto) PT INR APTT Sodium 141 Potassium 4.5 Chloride 109 H Carbon Dioxide 23 BUN 45 H Creatinine 3.20 H Estimated GFR 18.7 L BUN/Creatinine Ratio 14.1 Glucose 84 Calcium 8.1 L Total Bilirubin AST ALT Alkaline Phosphatase Total Creatine Kinase 163 CK-MB (CK-2) CK-MB (CK-2) Rel Index Troponin I 0.127 H* Total Protein Albumin Globulin Albumin/Globulin Ratio Lipase 05/16/19 05/16/19 05/16/19 01:55 01:55 11:45 WBC RBC Hgb Hct MCV MCH MCHC RDW Plt Count Neut % (Auto) Lymph % (Auto) [place] % (Auto) Eos % (Auto) Baso % (Auto) Neut # (Auto) Lymph # (Auto) [place] # (Auto) Eos # (Auto) Baso # (Auto) PT INR APTT Sodium 140 142 Potassium 4.4 4.1 Chloride 109 H 111 H Carbon Dioxide 25 24 BUN 42 H 34 H Creatinine 2.80 H 2.40 H Estimated GFR 21.8 L 26.0 L BUN/Creatinine Ratio 15.0 14.2 Glucose 91 92 Calcium 7.8 L 8.2 L Total Bilirubin AST ALT Alkaline Phosphatase Total Creatine Kinase CK-MB (CK-2) CK-MB (CK-2) Rel Index Troponin I 0.171 H* 0.105 H Total Protein Albumin Globulin Albumin/Globulin Ratio Lipase Discharge Plan Discharge Plan Discharge Problem: Dehydration, Acute kidney injury, Elevated troponin Patient Disposition: Home Discharge comment: Continue with increased water intake for the next several days. Repeat your blood test for kidney function in 1 week to ensure back to normal. Discharge orders & Medications Prescriptions: Continued levothyroxine [Synthroid] 75 MCG tablet 0.075 mg PO QAM Qty: 0 RF: 0 hydrocortisone [Cortef] 20 MG tablet 20 mg PO DAILY Qty: 0 RF: 0 desmopressin 0.1 MG tablet 0.05 mg PO BEDTIME Qty: 0 RF: 0 latanoprost 0.005 % drops 1 drp EYE-BOTH BEDTIME Qty: 0 RF: 0 aspirin 81 MG tablet,delayed release (DR/EC) 81 mg PO QAM Qty: 0 RF: 0 atorvastatin 10 mg tablet 10 mg PO QPM Qty: 90 RF: 3 valsartan 160 mg tablet 160 mg PO QPM RF: 0 calcium carbonate [Calcium 500] 500 mg calcium (1,250 mg) Tablet 500 mg PO DAILY RF: 0 multivitamin Tablet 1 tab PO DAILY RF: 0 Follow up/Referrals: Reyes Beckford MD [Primary Care Provider] - 1 Week Diet/Activity/Treatments Diet: Regular Visit Report/Discharge Packet Instructions: DI for Dehydration -- Adult Visit Report Forms: Patient Portal/API, Stroke Signs & Symptoms Discharge Data Primary Care Provider: Reyes Beckford Attending Provider: Reyes Beckford Admit Date/Time: 05/15/19 18:35
--- NOTE | 2019-05-16 13:42 | PC.NURSE ---
Discharge instructions reviewed with patient and his daughter, they state understanding and have no further questions or concerns at this time. Patient tolerating water, and meals, denies abdominal pain, n/v. Up ad mckay in room, steady on feet, fells ready for discharge to home. Patient instructed to follow up with Dr. Beckford in one week, and have his labs drawn prior to appointment. 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
--- NOTE | 2019-05-16 13:53 | CM.DANOTE ---
Patient is an 83 year old male who was admitted on 05/15/19 for Weakness/Orthostatic. Pt has [facility] and [employer] for insurance and his PCP is Dr. Beckford. EMR was reviewed. Per MD, pt's labs came back and stable and pt medically appropriate for d/c home today with no needs. SW met bedside with pt and adult Dtr/DPOA Em and explained role and pt confirms that he lives at home in [place] with his who has significant dementia and pt is her primary caregiver. Pt denies any hx of HH or SNF and states he is independent with ADL's and drives at baseline. Pt states his weakness and nausea were new and not his baseline but confirms that he feels much better today and preference is to d/c home this afternoon via Dtr POV. 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 Pt and Dtr confirm that they received resources for in-home caregivers from [facility] and have just begun to look into setting up a private pay caregiver for pt's spouse as she will likely begin requiring additional assist and pt's Dtr Em lives in [place] and available for assist on occasion but they would like to set up additional in-home support now before they are desperate. Dtr plans to move to [place] in the near future but does not have a set date for moving to assist more. Plan: SW to follow for pt d/c home today via Dtr POV and no SW needs at this time. MARICEL العراقي Discharge Planning/Care Management CM Discharge Assessment Start: 05/16/19 13:49 Freq: Status: Active Protocol: Document 05/16/19 13:50 BF (Rec: 05/16/19 13:53 BF [id number]) Discharge Planning Assessment Assigned Brick Burner ZULEMA Maza/Assigned Designee Name Dtbrendan Strickland Advance Directives? Yes History Provided By Patient,Family Member,Medical Record Has Patient been admitted in last 30 No days? Prior Living Arrangements House Household Members spouse Type of transporation used prior to Drives own vehicle admit Independent with ADL's Yes Is patient alert and oriented? Yes Caregiver for Another Yes: spouse with dementia Comment Home Barriers to Discharge No Discharge Plan Home Transportation Arrangement Dtr bedside and can provide transport Referrals Initiated None needed Whiteboard Updated in Patient Room with Yes name and ext. # of Brick Burner Review Status In Process Please Provide Date Initial DC 05/16/19 Assessment Was Performed Next Review Type Continued Stay Review
== END 2019-05-16 13:48 | disposition home or self-care (01) ==
LOC: ED 15:12 → AC 18:36
PROVIDERS: Admitting Provider Family Medicine; Emergency Provider Emergency Medicine; Family Provider Family Medicine; PCP Family Medicine; Referring Provider Emergency Medicine; Visit Provider Family Medicine
DX: R55 Syncope and collapse (principal); E86.0 Dehydration; N17.9 Acute kidney failure, unspecified; E03.9 Hypothyroidism, unspecified; N18.9 Chronic kidney disease, unspecified; R79.89 Other specified abnormal findings of blood chemistry; I12.9 Hypertensive chronic kidney disease with stage 1 through stage 4 chronic kidney disease, or unspecified chronic kidney disease
CPT/HCPCS: 36415; 70450; 71045; 80048; 80053; 82550; 82553; 83690; 84484; 85025; 85610; 85730; 93005; 93010; 96360; 96361; 99235; 99285; G0378

== ENCOUNTER → 2019-05-23 13:38 | Outpatient (CLI) | payer MEDICARE, SELFPAY ==
[2019-05-15 19:08] VITALS: BMI 25.3
[2019-05-23 15:03] LABS: BUN Creatinine Ratio 15.3 (6-22); Blood Urea Nitrogen 29 mg/dL (9-20); Calcium 9.4 mg/dL (8.4-10.2); Carbon Dioxide 27 mmol/L (22-32); Chloride 101 mmol/L (98-107); Estimated Glomerular Filt Rate 34.1 mL/min (>60); Glucose 108 mg/dL (80-110); HEMOLYSIS < 15 (0-50); Potassium 4.1 mmol/L (3.4-5.1); Sodium 134 mmol/L (137-145)
== END ==
PROVIDERS: Family Provider Family Medicine; PCP Family Medicine; Referring Provider Family Medicine; Visit Provider Family Medicine
DX: N17.9 Acute kidney failure, unspecified (principal)
CPT/HCPCS: 36415; 80048

== ENCOUNTER → 2020-02-21 09:07 | Outpatient (CLI) | payer MEDICARE, SELFPAY ==
--- NOTE | 2020-02-21 09:10 | DI.US.S_ITS ---
PROCEDURE: US PERIPH VENOUS LOW EXTREM LT INDICATIONS: LEFT LOWER EXTREMITY ACHING AND PAIN, WITH SWELLING TECHNIQUE: Real-time imaging, as well as color and pulse Doppler interrogation, were performed of the lower extremity deep veins from the inguinal ligament to the popliteal fossa. COMPARISON: None. FINDINGS: The common femoral, femoral and popliteal veins are normally compressible, and free of intraluminal thrombus. Color and pulse Doppler demonstrate normal phasic intraluminal flow. There is normal augmentation response to distal compression maneuver. IMPRESSION: No sonographic evidence of DVT. Dictated by: Reyes Leiva M.D. on 02/21/2020 at 9:39 Approved by: Reyes Leiva M.D. on 02/21/2020 at 9:40
== END ==
PROVIDERS: Family Provider Family Medicine; PCP Family Medicine; Referring Provider Family Medicine; Visit Provider Family Medicine
DX: I82.90 Acute embolism and thrombosis of unspecified vein (principal)
CPT/HCPCS: 93971

== ENCOUNTER → 2020-03-15 14:57 | Outpatient (CLI) | payer MEDICARE, SELFPAY ==
--- NOTE | 2020-03-15 | DI.ECHO.S_ITS ---
[facility]---------+ [facility] +---------+ : : [address] : : : : [id number] : : : : Phone: [phone] Echocardiogram Report + + :Name: KANG BRAXTON Study Date: 03/15/2020 Height: 73 in : :[facility] Weight: 190 lb : : Gender: Male BSA: 2.1 m2 : :: 1935 Age: 84 yrs BP: 167/73 mmHg: :Reason For Study: MITRAL REGURGITATION : :Ordering Physician: SHEELA, : :KETTY Performed By: Jennifer Hui : :Referring: KETTY FISHMAN : + + Interpretation Summary 1) Normal left ventricular thickness, size, wall motion, and systolic function (EF 60-65%). 2) Normal right ventricular size and function. 3) There is mild mitral regurgitation. 4) There is mild aortic regurgitation. 5) Hypertension present during the study (BP 167/73mmHg). 6) Compared to the Echo done 01/26/2017, no significant change in cardiac structure but hypertension is present on the current study. Procedure: A two-dimensional transthoracic echocardiogram with color flow and Doppler was performed. The study quality was technically adequate. Comparison is made with the echocardiogram of 01/26/2017. The patient was in sinus bradycardia with heart rates between 49-58 bpm during the exam. Left Ventricle: The left ventricle is normal in size and wall thickness. The ejection fraction is estimated to be 60-65%. Diastolic parameters suggest probable normal left ventricular diastolic function and normal filling pressures. Right Ventricle: The right ventricle is normal in size and function. Atria: The left atrial size is normal. Right atrial size is normal. There is no Doppler evidence for an interatrial shunt. Mitral Valve: The mitral valve leaflets appear borderline thickened, but open well. There is mild mitral regurgitation. Aortic Valve: The aortic valve is trileaflet. The aortic valve opens well. There is no aortic valve stenosis. There is mild aortic regurgitation. Tricuspid Valve: The tricuspid valve is normal in structure and function. Pulmonary artery pressures cannot be estimated because of the lack of a measurable TR jet velocity but the IVC suggests a CVP of around 3 mmHg. There is trace tricuspid regurgitation. Pulmonic Valve: The pulmonic valve leaflets are thin and pliable; valve motion is normal. There is mild pulmonic regurgitation. Great Vessels: The aortic root is normal size. The ascending aorta is normal in size. The IVC is of normal diameter and collapses greater than 50% with a sniff. This suggests a low right atrial pressure of 3 mm Hg. Pericardium/ Pleura There is no pericardial effusion. There is no pleural effusion. MMode/2D Measurements & Calculations LVIDd: 4.7 cm LVOT diam: 1.9 cm LVIDs: 3.0 cm Ao root diam: 3.3 cm FS: 34.9 % asc Aorta Diam: 3.5 cm EPSS: 0.31 cm Ao Arch Diam (Prox Trans): 2.7 cm IVSd: 0.81 cm LVPWd: 0.88 cm LV aguilera. diameter/BSA (cm/m^2): 2.2 LV sys. diameter/BSA (cm/m^2): 1.4 LA A2 area: 20.6 cm2 RA long axis: 5.3 cm LA A4 area: 15.7 cm2 RA area: 16.7 cm2 LA length (vol): 5.3 cm RA vol: 44.9 ml LA vol: 52.2 ml RA : 21.3 ml/m2 LA vol index: 24.8 ml/m2 IVC diam: 1.2 cm RVD1 (basal): 3.3 cm TAPSE: 2.8 cm Doppler Measurements & Calculations Ao V2 max: 121.9 cm/sec LVOT Max He: 128.9 cm/sec Ao V2 mean: 89.9 cm/sec LV V1 max P.6 mmHg Ao max P.9 mmHg LV V1 VTI: 32.5 cm Ao mean P.6 mmHg HIEN(I,D): 3.1 cm2 Ao V2 VTI: 31.1 cm HIEN(V,D): 3.1 cm2 sev ratio: 1.0 HIEN indexed to BSA (cm^2/m^2): 1.5 MV E max he: 80.8 cm/sec PA V2 max: 91.1 cm/sec MV A max he: 57.7 cm/sec PA V2 mean: 59.0 cm/sec MV E/A: 1.4 PA mean P.6 mmHg Med Peak E' He: 9.3 cm/sec PA pr(Accel): 31.0 mmHg E/E' med: 8.7 Lat Peak E' He: 9.2 cm/sec E/E' lat: 8.7 E/e' average: 8.7 MV dec time: 0.35 sec SV(LVOT): 96.0 ml Reading Physician:04:34 PM
== END ==
PROVIDERS: Family Provider Family Medicine; PCP Family Medicine; Referring Provider Internal Medicine Cardiovascular Disease; Visit Provider Internal Medicine Cardiovascular Disease
DX: I08.0 Rheumatic disorders of both mitral and aortic valves (principal)
CPT/HCPCS: 93306

== ENCOUNTER → 2020-03-26 08:21 | Outpatient (CLI) | payer MEDICARE, SELFPAY ==
[2020-03-26 09:33] LABS: Add Manual Diff / Slide Review NO; Basophils Absolute Auto 0 /uL (0-100); Basophils Percent Auto 0.5 % (0-2); Eosinophils Absolute Auto 300 /uL (0-450); Eosinophils Percent Auto 5.4 % (2-4); Hematocrit 34.3 % (41-53); Hemoglobin 11.5 g/dL (13.5-17.5); Lymphocytes Absolute Auto 1800 /uL (1100-4500); Mean Corpuscular HGB Conc 33.5 % (30-36); Mean Corpuscular Hemoglobin 29.2 PG (26-34); Mean Corpuscular Volume 87.2 fL (80-100); Monocytes Absolute Auto 500 /uL (0-900); Monocytes Percent Auto 8.7 % (3-14); Neutrophils Absolute Auto 2800 /uL (1500-7000); Neutrophils Percent Auto 52.4 % (50-75); Platelet Count 151 X10^3/uL (150-400); Red Blood Cell Count 3.93 X10^6/uL (4.5-5.9); Red Cell Distribution Width 14.2 % (11.6-14.8); White Blood Cell Count 5.4 X10^3/uL (4.5-11.0)
[2020-03-26 10:15] LABS: Alanine Aminotransferase 16 IU/L (<50); Albumin 3.7 g/dL (3.5-5.0); Albumin Globulin Ratio 1.5 (1.0-2.8); Alkaline Phosphatase 60 U/L (38-126); Aspartate Aminotransferase 39 IU/L (17-59); BUN Creatinine Ratio 19.7 (6-22); Bilirubin Total 0.3 mg/dL (0.2-1.3); Blood Urea Nitrogen 35 mg/dL (9-20); Calcium 9.4 mg/dL (8.4-10.2); Carbon Dioxide 31 mmol/L (22-32); Chloride 102 mmol/L (98-107); Cholesterol 171 mg/dL (140-199); Estimated Glomerular Filt Rate 36.7 mL/min (>60); Globulin 2.5 g/dL (1.7-4.1); Glucose 77 mg/dL (80-110); HDL Cholesterol 102 mg/dL (40-60); HEMOLYSIS < 15 (0-50); LDL Cholesterol Calculated 54 mg/dL (<100); Sodium 135 mmol/L (137-145); Total Protein 6.2 g/dL (6.3-8.2); Triglycerides 76 mg/dL (35-150)
[2020-03-26 10:40] LABS: Thyroid Stimulating Hormone 0.054 uIU/mL (0.47-4.68)
[2020-03-26 10:47] LABS: Prostate Specific Antigen Scrn < 0.064 ng/mL (0.1-4.0)
== END ==
PROVIDERS: Family Provider Family Medicine; PCP Family Medicine; Referring Provider Family Medicine; Visit Provider Family Medicine
DX: D35.2 Benign neoplasm of pituitary gland (principal); E03.9 Hypothyroidism, unspecified; Z12.5 Encounter for screening for malignant neoplasm of prostate; I44.0 Atrioventricular block, first degree; N18.2 Chronic kidney disease, stage 2 (mild)
CPT/HCPCS: 36415; 80053; 80061; 84443; 85025; G0103

== ENCOUNTER → 2020-04-10 14:03 | Outpatient (CLI) | payer MEDICARE, SELFPAY ==
[2020-04-10] MEDS: COVID-19 VACC #1, MRNA(MOD) 100 MCG/0.5 ML VIAL IM (14:10)
== END ==
PROVIDERS: Family Provider Family Medicine; PCP Family Medicine; Visit Provider Internal Medicine
DX: Z23 Encounter for immunization (principal)
CPT/HCPCS: 0011A; 91301

== ENCOUNTER → 2020-05-08 14:26 | Outpatient (CLI) | payer MEDICARE, SELFPAY ==
[2020-05-08] MEDS: COVID-19 VACC #2, MRNA(MOD) 100 MCG/0.5 ML VIAL IM (14:37)
== END ==
PROVIDERS: Family Provider Family Medicine; PCP Family Medicine; Visit Provider Internal Medicine
DX: Z23 Encounter for immunization (principal)
CPT/HCPCS: 0012A; 91301

== ENCOUNTER → 2020-05-14 08:38 | Outpatient (CLI) | payer MEDICARE, SELFPAY ==
[2020-05-14 09:34] LABS: Alanine Aminotransferase 17 IU/L (<50); Albumin Globulin Ratio 1.7 (1.0-2.8); Alkaline Phosphatase 65 U/L (38-126); Aspartate Aminotransferase 36 IU/L (17-59); BUN Creatinine Ratio 16.7 (6-22); Bilirubin Total 0.3 mg/dL (0.2-1.3); Blood Urea Nitrogen 31 mg/dL (9-20); Calcium 9.7 mg/dL (8.4-10.2); Carbon Dioxide 29 mmol/L (22-32); Chloride 104 mmol/L (98-107); Estimated Glomerular Filt Rate 34.9 mL/min (>60); Globulin 2.4 g/dL (1.7-4.1); Glucose 83 mg/dL (80-110); HEMOLYSIS < 15 (0-50); Potassium 4.7 mmol/L (3.4-5.1); Sodium 137 mmol/L (137-145); Total Protein 6.4 g/dL (6.3-8.2)
[2020-05-14 09:51] LABS: Prolactin 10.6 ng/mL (3.7-17.9)
[2020-05-14 10:01] LABS: Free T4, Direct Thyroxine 1.14 ng/dL (0.78-2.19)
[2020-05-14 10:02] LABS: Free T3, Triiodothyronine Free 2.45 pg/mL (2.77-5.27)
[2020-05-14 10:08] LABS: Cortisol AM (Before 10AM) 1.12 ug/dL (4.46-22.7)
[2020-05-14 10:16] LABS: Thyroid Stimulating Hormone 0.058 uIU/mL (0.47-4.68)
[2020-05-15 07:09] LABS: Adrenocorticotropic Hormone 8.8 pg/mL (7.2-63.3)
== END ==
PROVIDERS: Family Provider Family Medicine; PCP Family Medicine; Referring Provider Nurse Practitioner; Visit Provider Nurse Practitioner
DX: D35.2 Benign neoplasm of pituitary gland (principal); E03.8 Other specified hypothyroidism; E27.40 Unspecified adrenocortical insufficiency
CPT/HCPCS: 36415; 80053; 82024; 82533; 84146; 84439; 84443; 84481

== ENCOUNTER → 2020-11-27 11:15 | Outpatient (CLI) | payer MEDICARE, SELFPAY ==
[2020-11-27 12:46] LABS: COVID19 -Nasal RAPID Negative (Negative)
== END ==
PROVIDERS: Family Provider Family Medicine; PCP Family Medicine; Referring Provider Nurse Practitioner Family; Visit Provider Nurse Practitioner Family
DX: J02.9 Acute pharyngitis, unspecified (principal); R05 Cough; R09.89 Other specified symptoms and signs involving the circulatory and respiratory systems
CPT/HCPCS: 87635

== ENCOUNTER → 2020-11-27 11:37 | Outpatient (CLI) | payer MEDICARE, SELFPAY ==
--- NOTE | 2020-11-27 11:39 | DI.RAD.S_ITS ---
PROCEDURE: XR CHEST 2V INDICATIONS: Cough TECHNIQUE: 2 views of the chest were acquired. COMPARISON: [facility], CR, XR CHEST 1V, 05/15/2019, 15:21. FINDINGS: Surgical changes and devices: None. Lungs and pleura: Diffuse scarring/atelectasis as before. Increased opacity involving the right upper lobe. No pleural effusions or pneumothorax. Blunting of the right costophrenic angle. Mediastinum: Mediastinal contours are normal. Heart size is normal. Bones and chest wall: No suspicious bony abnormalities. Soft tissues appear unremarkable. IMPRESSION: Mildly increased opacity involving the right upper lobe suspicious for early pneumonia. Background diffuse scarring and atelectasis. If there is persistent clinical diagnostic uncertainty, continued surveillance with short interval radiographic followup after treatment is recommended. Dictated by: Mervin Lazar M.D. on 11/27/2020 at 13:49 Approved by: Mervin Lazar M.D. on 11/27/2020 at 13:50
== END ==
PROVIDERS: Family Provider Family Medicine; PCP Family Medicine; Referring Provider Nurse Practitioner Family; Visit Provider Nurse Practitioner Family
DX: R05 Cough (principal); J02.9 Acute pharyngitis, unspecified; R09.89 Other specified symptoms and signs involving the circulatory and respiratory systems; J98.4 Other disorders of lung; J98.11 Atelectasis
CPT/HCPCS: 71046; 87635

== ENCOUNTER → 2021-02-01 13:47 | Outpatient (CLI) | payer MEDICARE, SELFPAY ==
[2021-02-01] MEDS: COVID-19 VACC #3, MRNA(MOD) 50 MCG/0.25 ML VIAL IM (14:02)
== END ==
PROVIDERS: Family Provider Family Medicine; PCP Family Medicine; Visit Provider Internal Medicine
DX: Z23 Encounter for immunization (principal)
CPT/HCPCS: 0013A; 91301

== ENCOUNTER → 2021-02-26 12:26 | Outpatient (CLI) | payer MEDICARE, SELFPAY ==
[2021-02-26 13:11] LABS: COVID19 -Nasal RAPID Negative (Negative)
== END ==
PROVIDERS: Family Provider Family Medicine; PCP Family Medicine; Visit Provider Physician Assistant
DX: R05.9 Cough, unspecified (principal); R06.02 Shortness of breath
CPT/HCPCS: 87635

== ENCOUNTER 2021-02-26 12:47 | Emergency (ER) | payer MEDICARE, SELFPAY ==
[2021-02-26 13:20] VITALS: BP 188/83; PULSE 66; RESP 18; TEMP 36.7; O2SAT 96; BMI 24.4
--- NOTE | 2021-02-26 13:25 | DI.RAD.S_ITS ---
PROCEDURE: XR CHEST 1V INDICATIONS: chest pain TECHNIQUE: One view of the chest was acquired. COMPARISON: CT, CT CHEST W CON, 09/06/2018, 14:36. [facility], CR, XR CHEST 2V, 11/27/2020, 11:47. [facility], CR, XR CHEST 1V, 05/15/2019, 15:21. FINDINGS: Surgical changes and devices: None. Lungs and pleura: Prominent lung volumes scattered areas of scarring/atelectasis similar to before. A subtle opacity in the right upper lobe is less conspicuous. No pleural effusions or pneumothorax. Mediastinum: Mediastinal contours appear normal. Heart size is normal. Bones and chest wall: No suspicious bony lesions. Overlying soft tissues appear unremarkable. IMPRESSION: No acute cardiopulmonary abnormality identified. Similar atelectasis or scarring. Right upper lobe subtle opacity is less conspicuous. This could be seen in infectious/inflammatory etiology, atelectasis, or scarring. Less likely pulmonary nodule given its low-density. Dictated by: Cruz Quinteros M.D. on 02/26/2021 at 13:57 Approved by: Cruz Quinteros M.D. on 02/26/2021 at 14:00
[2021-02-26 13:46] LABS: Add Manual Diff / Slide Review NO; Basophils Absolute Auto 0 /uL (0-100); Basophils Percent Auto 0.4 % (0-2); Eosinophils Absolute Auto 400 /uL (0-450); Eosinophils Percent Auto 5.2 % (2-4); Hematocrit 32.2 % (41-53); Lymphocytes Absolute Auto 700 /uL (1100-4500); Lymphocytes Percent Auto 9.2 % (25-40); Mean Corpuscular HGB Conc 34.2 % (30-36); Mean Corpuscular Hemoglobin 28.6 PG (26-34); Mean Corpuscular Volume 83.7 fL (80-100); Monocytes Absolute Auto 800 /uL (0-900); Monocytes Percent Auto 10.1 % (3-14); Neutrophils Absolute Auto 5800 /uL (1500-7000); Neutrophils Percent Auto 75.1 % (50-75); Platelet Count 155 X10^3/uL (150-400); Red Blood Cell Count 3.85 X10^6/uL (4.5-5.9); Red Cell Distribution Width 14.5 % (11.6-14.8); White Blood Cell Count 7.7 X10^3/uL (4.5-11.0)
[2021-02-26 13:56] LABS: Alanine Aminotransferase 15 IU/L (<50); Albumin 3.9 g/dL (3.5-5.0); Albumin Globulin Ratio 1.4 (1.0-2.8); Alkaline Phosphatase 63 U/L (38-126); Aspartate Aminotransferase 32 IU/L (17-59); BUN Creatinine Ratio 15.8 (6-22); Bilirubin Total 0.7 mg/dL (0.2-1.3); Blood Urea Nitrogen 30 mg/dL (9-20); Carbon Dioxide 28 mmol/L (22-32); Chloride 102 mmol/L (98-107); Creatine Kinase 50 U/L (55-170); Estimated Glomerular Filt Rate 33.9 mL/min (>60); Globulin 2.8 g/dL (1.7-4.1); Glucose 108 mg/dL (80-110); HEMOLYSIS < 15 (0-50); Lipase 170 U/L (23-300); Magnesium 2.3 mg/dL (1.6-2.3); Potassium 4.3 mmol/L (3.4-5.1); Sodium 135 mmol/L (137-145); Total Protein 6.7 g/dL (6.3-8.2)
--- NOTE | 2021-02-26 13:59 | ED.CHESTPAIN ---
HPI - Chest Pain General Chief Complaint: Chest Pain Stated Complaint: SOB, Rt rib pain when breathing- sent by [facility] Time Seen by Provider: 02/26/21 13:33 Source: patient Mode of arrival: Ambulatory Limitations: no limitations History of Present Illness HPI narrative: Patient is an 85-year-old male who is here for evaluation of shortness of breath on exertion and also right upper chest pain and right upper back discomfort. He states the symptoms have been going on for the past month but particularly worsening over the past several days/week. No fevers. No cough. He states that when he is sitting down or when he is walking on a flat surface he seems to not have any problems with breathing. He normally walks quite a bit and has to walk up a hill in order to get home and he used to be able to do that without any problems but over the past month or so he has noticed that he has to stop because of the shortness of breath. No fevers. No abdominal pain. No lower extremity swelling. Has never had a heart attack before. Has never had a stroke before. No underlying lung issues. Has not tried anything for symptoms prior to arrival. Related Data Home Medications Medication Instructions Recorded Confirmed hydrocortisone 20 mg tablet 20 mg PO DAILY #0 09/30/16 02/26/21 (Cortef) desmopressin 0.1 mg tablet 0.05 mg PO BEDTIME #0 01/14/17 02/26/21 aspirin 81 mg tablet,delayed 81 mg PO QAM #0 01/21/17 02/26/21 release latanoprost 0.005 % eye drops 1 drp EYE-BOTH BEDTIME #0 01/21/17 02/26/21 calcium carbonate 500 mg calcium 500 mg PO DAILY 07/05/18 02/26/21 (1,250 mg) tablet (Calcium 500) multivitamin 1 tab PO DAILY 07/05/18 02/26/21 valsartan 160 mg tablet 160 mg PO QPM 07/05/18 02/26/21 Previous Rx's Medication Instructions Recorded levothyroxine 50 mcg tablet 50 mcg PO QAM #90 tab 03/26/20 atorvastatin 10 mg tablet See Rx Instructions .ROUTE 06/29/20 .COMPLEX #90 tab benzonatate 100 mg capsule 100 mg PO BID PRN #20 cap 11/27/20 (Camron Spence) furosemide 20 mg tablet (Lasix) 20 mg PO DAILY 7 Days #7 tab 02/26/21 Allergies Allergy/AdvReac Type Severity Reaction Status Date / Time No Known Drug Allergies Allergy Unknown Verified 02/26/21 12:19 [NO KNOWN DRUG ALLERGIES] Review of Systems Constitutional Constitutional: Denies fever(s) and Denies headache(s) ENT Ears, Nose, Mouth, and Throat: Denies headache(s) Cardiovascular Cardiovascular: Reports as per HPI and Reports system reviewed and no additional complaints, except as documented Respiratory Respiratory: Reports as per HPI and Reports system reviewed and no additional complaints, except as documented Gastrointestinal Gastrointestinal: Reports system reviewed and no additional complaints, except as documented Genitourinary Genitourinary: Reports system reviewed and no additional complaints, except as documented Integumentary/Breasts Skin/Breast: Reports system reviewed and no additional complaints, except as documented Neurologic Neurologic: Reports system reviewed and no additional complaints, except as documented and Denies headache(s) Hematologic/Lymphatic On Anticoagulants: No Allergic/Immunologic Allergic/Immunologic: Reports system reviewed and no additional complaints, except as documented Patient History Medical History Acute kidney injury Dehydration Elevated troponin Hyperlipidemia (11/30/14) Hypertension (11/30/14) Surgical History Status post appendectomy Family History Grandfather Mental health problem Grandmother Hypertension Mother Age: 107 Colon cancer Grandfather Heart disease Social History household members: spouse Smoking Status: Former smoker alcohol intake: current Smoking Status: Former smoker alcohol intake frequency: a few times a week Substance Use Type: does not use Exam Initial Vital Signs Initial Vital Signs: Vital Signs Temperature 98.1 F 02/26/21 13:20 Pulse Rate 66 02/26/21 13:20 Respiratory Rate 18 02/26/21 13:20 Blood Pressure 188/83 H 02/26/21 13:20 Pulse Oximetry 96 02/26/21 13:20 Const General: cooperative, healthy appearing, comfortable and well developed Limitations: mental status not altered [facility] Head: normal to inspection and normocephalic Chest Chest: normal inspection of the chest, No crepitus and No tenderness Resp Effort & Inspection: normal respiratory effort Auscultation: clear to auscultation bilaterally Cardio Rate: regular rate Rhythm: regular rhythm GI Inspection: non-distended Palpation: soft and No tender Back/Spine/Pelvis Back: normal to inspection Skin General: no rashes or lesions noted Neuro General: patient alert, patient awake, patient oriented x3 and moves all extremities Extrem General: No edema Psych Appearance: grossly normal and well kempt Course Orders Ordered: ED Orders 02/26/21 12:55 EKG-12 Lead Routine 02/26/21 13:25 XR chest 1V Stat 02/26/21 13:35 Complete Blood Count AUTO DIFF Stat Comprehensive Metabolic Panel Stat Lipase Stat Magnesium Stat NT-proBNP (BNP-Adult 18+) Stat Troponin & CK Cardiac Panel Stat Vital Signs Vital signs: Vital Signs - 8 hr 02/26/21 13:20 02/26/21 16:40 Temperature 98.1 F Pulse Rate 66 60 Respiratory Rate 18 17 Blood Pressure 188/83 H 158/76 H Pulse Oximetry 96 98 MDM - Chest Pain Lab Data Attestation: I reviewed the patient's lab results. Result diagrams: 02/26/21 13:35 02/26/21 13:35 Labs: Lab Results 02/26/21 02/26/21 02/26/21 Range/Units 13:35 13:35 13:35 WBC 7.7 (4.5-11.0) X10^3/uL RBC 3.85 L (4.5-5.9) X10^6/uL Hgb 11.0 L (13.5-17.5) g/dL Hct 32.2 L (41-53) % MCV 83.7 (80-100) fL MCH 28.6 (26-34) PG MCHC 34.2 (30-36) % RDW 14.5 (11.6-14.8) % Plt Count 155 (150-400) X10^3/uL Neut % (Auto) 75.1 H (50-75) % Lymph % (Auto) 9.2 L (25-40) % [place] % (Auto) 10.1 (3-14) % Eos % (Auto) 5.2 H (2-4) % Baso % (Auto) 0.4 (0-2) % Neut # (Auto) 5800 (1609-8298) /uL Lymph # (Auto) 700 L (6821-8751) /uL [place] # (Auto) 800 (0-900) /uL Eos # (Auto) 400 (0-450) /uL Baso # (Auto) 0 (0-100) /uL Sodium 135 L (137-145) mmol/L Potassium 4.3 (3.4-5.1) mmol/L Chloride 102 (98-107) mmol/L Carbon Dioxide 28 (22-32) mmol/L BUN 30 H (9-20) mg/dL Creatinine 1.90 H (0.66-1.25) mg/dL Estimated GFR 33.9 L (>60) mL/min BUN/Creatinine Ratio 15.8 (6-22) Glucose 108 (80-110) mg/dL Calcium 9.0 (8.4-10.2) mg/dL Magnesium 2.3 (1.6-2.3) mg/dL Total Bilirubin 0.7 (0.2-1.3) mg/dL AST 32 (17-59) IU/L ALT 15 (<50) IU/L Alkaline Phosphatase 63 (38-126) U/L Total Creatine Kinase 50 L (55-170) U/L CK-MB (CK-2) TNP CK-MB (CK-2) Rel Index TNP Troponin I 0.016 (0.01-0.034) ng/mL NT-Pro-B Natriuret Pep 1050 H (<450) pg/mL Total Protein 6.7 (6.3-8.2) g/dL Albumin 3.9 (3.5-5.0) g/dL Globulin 2.8 (1.7-4.1) g/dL Albumin/Globulin Ratio 1.4 (1.0-2.8) Lipase 170 (23-300) U/L Imaging Data Chest x-ray: Radiologist's Impression: [address] [address] XRay Report Signed Patient: Pablo Saez MR#: [id number] : 1935 Acct:[id number] Age/Sex: 85 / M Date of Service: 02/26/21 Loc: ED Accession Number: [id number] ?? Procedure: XR chest 1V Ordering Provider: Pritesh Jansen D.O. PROCEDURE:? XR CHEST 1V ? INDICATIONS:? chest pain ? TECHNIQUE:? One view of the chest was acquired.? ? COMPARISON:? CT, CT CHEST W CON, 09/06/2018, 14:36.? [facility], CR, XR CHEST 2V, 11/27/2020, 11:47.? [facility], CR, XR CHEST 1V, 05/15/2019, 15:21. ? FINDINGS:? ? Surgical changes and devices:? None.? ? Lungs and pleura:? Prominent lung volumes scattered areas of scarring/atelectasis similar to before.? A subtle opacity in the right upper lobe is less conspicuous.? No pleural effusions or pneumothorax.? ? Mediastinum:? Mediastinal contours appear normal.? Heart size is normal.? ? Bones and chest wall:? No suspicious bony lesions.? Overlying soft tissues appear unremarkable.? ? IMPRESSION:? No acute cardiopulmonary abnormality identified. Similar atelectasis or scarring. ? Right upper lobe subtle opacity is less conspicuous.? This could be seen in infectious/inflammatory etiology, atelectasis, or scarring.? Less likely pulmonary nodule given its low-density. ? ? Dictated by: Cruz Quinteros M.D. on 02/26/2021 at 13:57 ? ? Approved by: Cruz Quinteros M.D. on 02/26/2021 at 14:00? ECG Data Attestation: I personally reviewed and interpreted this ECG as follows: Prior ECG tracings: not available for review Interpretation: Sinus rhythm Ventricular rate of 67 Normal axis Normal QRS Normal QTC No ST T wave changes MDM Narrative Medical decision making narrative: EKG is unremarkable, chest x-ray does show the right upper lobe pathology. Patient is aware of this. Low suspicion for pneumonia. No leukocytosis. No cough. Afebrile. Troponin is negative. Low suspicion for ACS. Does have a elevation in the BNP. And because of his dyspnea on exertion will try a course of diuretics. I did discuss the use of these medications. I did discuss follow-up with his primary doctor to discuss further evaluation. He was given return precautions. He expressed understanding and agreement. Discharge Plan Departure Patient Disposition: Home Clinical Impression: Dyspnea on exertion Instructions: DI for Shortness of Breath Activity Restrictions/Additional Instructions: I recommend that you contact your primary doctor to discuss further workup to include the indications for a echocardiogram. Start taking the diuretics tomorrow like we discussed. Return to the emergency department for any new or worsening symptoms. Prescriptions: New furosemide [Lasix] 20 mg tablet 20 mg PO DAILY 7 Days Qty: 7 0RF No Action benzonatate [Tessalon Perles] 100 mg capsule 100 mg PO BID PRN (Reason: cough) Qty: 20 0RF hydrocortisone [Cortef] 20 MG tablet 20 mg PO DAILY Qty: 0 0RF desmopressin 0.1 MG tablet 0.05 mg PO BEDTIME Qty: 0 0RF latanoprost 0.005 % drops 1 drp EYE-BOTH BEDTIME Qty: 0 0RF aspirin 81 MG tablet,delayed release (DR/EC) 81 mg PO QAM Qty: 0 0RF levothyroxine 50 mcg tablet 50 mcg PO QAM Qty: 90 0RF Rx Instructions: Take one tab daily. Please check labs prior to more fills. atorvastatin 10 mg tablet See Rx Instructions .ROUTE .COMPLEX Qty: 90 2RF Dose Instruction: TAKE ONE TABLET BY MOUTH EVERY IN THE EVENING Rx Instructions: TAKE ONE TABLET BY MOUTH EVERY IN THE EVENING valsartan 160 mg tablet 160 mg PO QPM 0RF calcium carbonate [Calcium 500] 500 mg calcium (1,250 mg) Tablet 500 mg PO DAILY 0RF Rx Instructions: 4 hours from Levothyroxine unknown dose multivitamin Tablet 1 tab PO DAILY 0RF Referrals: Reyes Beckford MD [Primary Care Provider] -
[2021-02-26 14:07] LABS: Troponin I 0.016 ng/mL (0.01-0.034)
[2021-02-26 15:05] LABS: NT-proBNP (BNP-Adult 18+) 1050 pg/mL (<450)
[2021-02-26 16:40] VITALS: BP 158/76; PULSE 60; RESP 17; O2SAT 98
== END 2021-02-26 16:41 | disposition home or self-care (01) ==
PROVIDERS: Emergency Provider Emergency Medicine; Family Provider Family Medicine; PCP Family Medicine
DX: R06.09 Other forms of dyspnea (principal); Z87.891 Personal history of nicotine dependence; Z20.822 Contact with and (suspected) exposure to COVID-19; R05.9 Cough, unspecified; R06.02 Shortness of breath
CPT/HCPCS: 36415; 71045; 80053; 82550; 83690; 83735; 83880; 84484; 85025; 87635; 93005; 93010; 99283; 99284

== ENCOUNTER → 2021-03-07 12:10 | Outpatient (CLI) | payer MEDICARE, SELFPAY ==
[2021-03-07 13:34] LABS: HEMOLYSIS < 15 (0-50); Iron 45 ug/dL (49-181)
[2021-03-07 13:41] LABS: D Dimer 3351 ng/mL (<230)
[2021-03-07 13:46] LABS: Percent Iron Saturation 18 % (20-50); Total Iron Binding Capacity 254 ug/dL (261-462); Transferrin 175 mg/dL (206-381)
[2021-03-07 13:52] LABS: Free T3, Triiodothyronine Free 2.78 pg/mL (2.77-5.27)
[2021-03-07 14:06] LABS: TSH w/ Reflex to FT4 0.04 uIU/mL (0.47-4.68)
[2021-03-07 14:35] LABS: Free T4, Direct Thyroxine 1.39 ng/dL (0.78-2.19)
== END ==
PROVIDERS: Family Provider Family Medicine; PCP Family Medicine; Referring Provider Physician Assistant; Visit Provider Physician Assistant
DX: D64.9 Anemia, unspecified (principal); E03.9 Hypothyroidism, unspecified; R79.89 Other specified abnormal findings of blood chemistry; R06.00 Dyspnea, unspecified
CPT/HCPCS: 36415; 83540; 83550; 84439; 84443; 84481; 85379

== ENCOUNTER 2021-03-07 16:06 | Outpatient (CLI) | payer MEDICARE, SELFPAY ==
--- NOTE | 2021-03-07 16:38 | DI.CT.S_ITS ---
PROCEDURE: CT ANGIO CHEST PE PROTOCOL INDICATIONS: Dyspnea on exertion elevated d dimer hx of DVT TECHNIQUE: After the administration of intravenous contrast, 2 mm thick sections acquired from the pulmonary apices to the posterior costophrenic angles. 3-dimensional maximum intensity projection (MIP) coronal and sagittal reformats were then acquired through the thorax. For radiation dose reduction, the following was used: automated exposure control, adjustment of mA and/or kV according to patient size. COMPARISON: None. FINDINGS: Bilateral pulmonary emboli, fully occlusive in the right lower lobe pulmonary artery and mostly occlusive in the right upper and right middle lobe pulmonary arteries. Numerous segmental and subsegmental bilateral pulmonary filling defects. Ground-glass opacity in the right upper lobe appears similar to the comparison chest x-ray. No other acute airspace opacity identified. Normal heart size. No pericardial effusion. Normal caliber thoracic aorta. No findings of right heart strain. No threshold enlarged thoracic lymph node. No acute or suspicious osseous lesion in the field of view. IMPRESSION: Multiple bilateral acute pulmonary emboli. Dictated by: Reyes Leiva M.D. on 03/07/2021 at 20:20 Approved by: Reyes Leiva M.D. on 03/07/2021 at 20:25
== END 2021-03-12 12:01 | disposition left against medical advice (07) ==
LOC: ED 03-12 09:49 → CT 03-12 09:51
PROVIDERS: Family Provider Family Medicine; PCP Family Medicine; Referring Provider Physician Assistant; Visit Provider Physician Assistant
DX: I26.99 Other pulmonary embolism without acute cor pulmonale (principal); R06.00 Dyspnea, unspecified; R79.89 Other specified abnormal findings of blood chemistry; Z86.718 Personal history of other venous thrombosis and embolism
CPT/HCPCS: 71275

== ENCOUNTER 2021-03-07 20:37 | Emergency (ER) | payer MEDICARE, SELFPAY ==
[2021-03-07] VITALS (12 sets, daily range): BP systolic 171–208; BP diastolic 71–94; PULSE 55–82; RESP 12–29; TEMP 37.4; O2SAT 91–99; BMI 24.4
--- NOTE | 2021-03-07 20:44 | ED_ITS ---
HPI - General Adult General Chief complaint: Shortness of Breath/Dyspnea Stated complaint: Positive PE,came from DI Time Seen by Provider: 03/07/21 20:39 Source: patient Mode of arrival: Ambulatory History of Present Illness HPI narrative: Patient is an 85-year-old male who had a outpatient CT scan of his chest performed today for evaluation of pulmonary embolism. He was found on the CT scan that he does have bilateral pulmonary emboli so he was sent to the emergency department for further evaluation. He was seen here in this emergency department by myself approximately 10 days ago for shortness of breath and dyspnea on exertion. He states that his symptoms since that time have not changed. He has no chest pain. When he is walking on flat ground he has no shortness of breath. The CT scan was ordered by a his primary provider's office earlier today for evaluation of his symptoms be he has had a blood clot in the past. That was several years ago. He was on anticoagulation for 3 months and then this was discontinued. He was not that this blood cut came because of a procedure that he had around the time of the diagnosis. Related Data Home Medications Medication Instructions Recorded Confirmed hydrocortisone 20 mg tablet 20 mg PO DAILY #0 09/30/16 03/05/21 (Cortef) desmopressin 0.1 mg tablet 0.05 mg PO BEDTIME #0 01/14/17 03/05/21 aspirin 81 mg tablet,delayed 81 mg PO QAM #0 01/21/17 03/05/21 release latanoprost 0.005 % eye drops 1 drp EYE-BOTH BEDTIME #0 01/21/17 03/05/21 calcium carbonate 500 mg calcium 500 mg PO DAILY 07/05/18 03/05/21 (1,250 mg) tablet (Calcium 500) multivitamin 1 tab PO DAILY 07/05/18 03/05/21 valsartan 160 mg tablet 160 mg PO QPM 07/05/18 03/05/21 Previous Rx's Medication Instructions Recorded levothyroxine 50 mcg tablet 50 mcg PO QAM #90 tab 03/26/20 atorvastatin 10 mg tablet See Rx Instructions .ROUTE 06/29/20 .COMPLEX #90 tab apixaban 5 mg tablet (Eliquis) 5 mg PO BID #70 tab 03/07/21 Allergies Allergy/AdvReac Type Severity Reaction Status Date / Time No Known Drug Allergies Allergy Unknown Verified 03/05/21 11:24 [NO KNOWN DRUG ALLERGIES] Review of Systems Constitutional Comments: Denies fevers Cardiovascular Comments: Denies chest pain Respiratory Comments: Shortness breath on exertion especially going up hills Integumentary/Breasts Comments: No rashes Hematologic/Lymphatic On Anticoagulants: No Patient History Medical History Acute kidney injury Cataract (11/30/14) Dehydration Elevated troponin Glaucoma (11/30/14) Hyperlipidemia (11/30/14) Hypertension (11/30/14) Pituitary adenoma (01/14/17) Syncope 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) Surgical History Status post appendectomy Family History Grandfather Mental health problem Grandmother Hypertension Mother Age: 107 Colon cancer Grandfather Heart disease Social History household members: spouse Smoking Status: Former smoker alcohol intake: current Smoking Status: Former smoker alcohol intake frequency: a few times a week Substance Use Type: does not use Exam Initial Vital Signs Initial Vital Signs: Vital Signs Temperature 99.3 F 03/07/21 20:41 Pulse Rate 62 03/07/21 20:41 Respiratory Rate 21 03/07/21 20:41 Blood Pressure 208/91 H 03/07/21 20:41 Pulse Oximetry 99 03/07/21 20:41 Const General: cooperative, healthy appearing and comfortable [facility] Head: normal to inspection and normocephalic Resp Effort & Inspection: normal respiratory effort Auscultation: clear to auscultation bilaterally Cardio Rate: regular rate Rhythm: regular rhythm GI Inspection: normal to inspection Skin General: no rashes or lesions noted Neuro General: patient alert, patient awake and moves all extremities Extrem General: normal to inspection and capillary refill normal Psych Appearance: grossly normal and well kempt Course Orders Ordered: ED Orders 03/07/21 20:46 EKG-12 Lead Stat 03/07/21 21:00 Complete Blood Count AUTO DIFF Stat Comprehensive Metabolic Panel Stat NT-proBNP (BNP-Adult 18+) Stat Partial Thromboplastin Time Stat Prothrombin Time INR Stat Troponin & CK Cardiac Panel Stat Discontinued Medications Apixaban (Apixaban 5 Mg Tablet) 10 mg PO NOW ONE Stop: 03/07/21 21:40 Last Admin: 03/07/21 21:43 Dose: 10 mg Documented by: SIRENA Sodium Chloride (Normal Saline 0.9%) 1,000 mls @ 1,000 mls/hr IV BOLUS ONE Stop: 03/07/21 21:43 Last Infusion: 03/07/21 22:33 Dose: 0 mls/hr Documented by: Admin: 03/07/21 21:07 Dose: 1,000 mls/hr Documented by: SIRENA Vital Signs Vital signs: Vital Signs - 8 hr 03/07/21 20:41 03/07/21 20:42 03/07/21 20:43 Temperature 99.3 F Pulse Rate 62 62 Respiratory Rate 21 22 Blood Pressure 208/91 H 208/94 H Pulse Oximetry 99 99 98 03/07/21 21:00 03/07/21 21:01 03/07/21 21:30 Temperature Pulse Rate 59 L 62 59 L Respiratory Rate 23 29 H 20 Blood Pressure 187/84 H Pulse Oximetry 96 97 97 03/07/21 21:31 03/07/21 21:54 03/07/21 22:00 Temperature Pulse Rate 55 L 82 60 Respiratory Rate 22 27 H 13 Blood Pressure 171/71 H Pulse Oximetry 97 91 98 03/07/21 22:01 03/07/21 22:30 03/07/21 22:31 Temperature Pulse Rate 59 L 60 58 L Respiratory Rate 19 14 12 Blood Pressure 194/81 H 194/81 H Pulse Oximetry 97 97 98 Medical Decision Making Lab Data Lab results reviewed: Yes I reviewed the patient's lab results. Result diagrams: 03/07/21 21:00 03/07/21 21:00 Labs: Lab Results 03/07/21 03/07/21 03/07/21 Range/Units 21:00 21:00 21:00 WBC 6.7 (4.5-11.0) X10^3/uL RBC 3.53 L (4.5-5.9) X10^6/uL Hgb 10.0 L (13.5-17.5) g/dL Hct 29.1 L (41-53) % MCV 82.2 (80-100) fL MCH 28.3 (26-34) PG MCHC 34.4 (30-36) % RDW 14.8 (11.6-14.8) % Plt Count 246 (150-400) X10^3/uL Neut % (Auto) 76.4 H (50-75) % Lymph % (Auto) 15.3 L (25-40) % [place] % (Auto) 5.9 (3-14) % Eos % (Auto) 1.9 L (2-4) % Baso % (Auto) 0.5 (0-2) % Neut # (Auto) 5100 (8671-6164) /uL Lymph # (Auto) 1000 L (0763-6738) /uL [place] # (Auto) 400 (0-900) /uL Eos # (Auto) 100 (0-450) /uL Baso # (Auto) 0 (0-100) /uL PT 12.0 (10.1-12.7) SECONDS INR 1.1 (0.9-1.3) APTT 31 D (26.4-36.2) SECONDS Sodium 133 L (137-145) mmol/L Potassium 4.9 (3.4-5.1) mmol/L Chloride 103 (98-107) mmol/L Carbon Dioxide 27 (22-32) mmol/L BUN 31 H (9-20) mg/dL Creatinine 1.82 H (0.66-1.25) mg/dL Estimated GFR 35.7 L (>60) mL/min BUN/Creatinine Ratio 17.0 (6-22) Glucose 101 (80-110) mg/dL Calcium 9.1 (8.4-10.2) mg/dL Total Bilirubin 0.5 (0.2-1.3) mg/dL AST 31 (17-59) IU/L ALT 16 (<50) IU/L Alkaline Phosphatase 72 (38-126) U/L Total Creatine Kinase 42 L (55-170) U/L CK-MB (CK-2) TNP CK-MB (CK-2) Rel Index TNP Troponin I < 0.012 (0.01-0.034) ng/mL NT-Pro-B Natriuret Pep 955 H (<450) pg/mL Total Protein 6.5 (6.3-8.2) g/dL Albumin 3.6 (3.5-5.0) g/dL Globulin 2.9 (1.7-4.1) g/dL Albumin/Globulin Ratio 1.2 (1.0-2.8) Imaging Data CT scan - chest: Radiologist's Impression: [address] [address] [address] Scan Report Signed Patient: Pablo Saez MR#: [id number] : 1935 Acct:[id number] Age/Sex: 85 / M Date of Service: 03/07/21 Loc: CT Accession Number: [id number] ?? Procedure: CT angio chest PE protocol Ordering Provider: Delmy Guerra P.A-C PROCEDURE:? CT ANGIO CHEST PE PROTOCOL ? INDICATIONS:? Dyspnea on exertion? elevated d dimer ? hx of DVT ? TECHNIQUE:? After the administration of intravenous contrast, 2 mm thick sections acquired from the pulmonary apices to the posterior costophrenic angles.? 3-dimensional maximum intensity projection (MIP) coronal and sagittal reformats were then acquired through the thorax.? For radiation dose reduction, the following was used:? automated exposure control, adjustment of mA and/or kV according to patient size.? ? COMPARISON:? None. ? FINDINGS:? ? Bilateral pulmonary emboli, fully occlusive in the right lower lobe pulmonary artery and mostly occlusive in the right upper and right middle lobe pulmonary arteries.? Numerous segmental and subsegmental bilateral pulmonary filling defects. ? Ground-glass opacity in the right upper lobe appears similar to the comparison chest x-ray.? No other acute airspace opacity identified. ? Normal heart size.? No pericardial effusion.? Normal caliber thoracic aorta.? No findings of right heart strain.? No threshold enlarged thoracic lymph node.? No acute or suspicious osseous lesion in the field of view. ? IMPRESSION: ? Multiple bilateral acute pulmonary emboli. ? ? Dictated by: Reyes Leiva M.D. on 03/07/2021 at 20:20 ? ? Approved by: Reyes Leiva M.D. on 03/07/2021 at 20:25?? ECG Data Attestation: I personally reviewed and interpreted this ECG as follows: Interpretation: Sinus bradycardia Ventricular rate of 58 Normal axis Normal QRS Normal QTC No ST T wave changes MDM Narrative Medical decision making narrative: The CT scan included in this note is for reference purposes only. It was performed as a outpatient. Patient's EKG is unremarkable. Troponins unremarkable. Not hypoxic. Not tachycardic. Does have a slightly elevated BNP. No elevated troponin. He ambulated around the emergency department without any discomfort. He was given a dose of Eliquis here in the emergency department. I did discuss with him being admitted to the hospital for fluid hydration given the fact that he just received contrast and his kidney function. He also requires further evaluation to include an echocardiogram. After this discussion the patient decided that he would like to be discharged home and follow-up as an outpatient. I do not feel this is unreasonable given his presentation today. His dyspnea on exertion has been going on for the past several weeks and is not new since his last visit here in the emergency department. He was provided a prescription for 30 days of Eliquis. He will contact his primary doctor for follow-up. He was given return precautions. He expressed understanding and agreement. Discharge Plan Departure Patient Disposition: Home Clinical Impression: Pulmonary embolism Instructions: DI for Pulmonary Embolism Activity Restrictions/Additional Instructions: I do recommend that you stop the aspirin. Start taking the Eliquis/apixaban as directed. I do recommend you contact Dr. Beckford's office for a follow-up. Return to the emergency department for any new or worsening symptoms. Prescriptions: New Eliquis 5 mg tablet 5 mg PO BID Qty: 70 0RF Rx Instructions: take 2T PO BID for 7 days then 1T PO BID after No Action hydrocortisone [Cortef] 20 MG tablet 20 mg PO DAILY Qty: 0 0RF desmopressin 0.1 MG tablet 0.05 mg PO BEDTIME Qty: 0 0RF latanoprost 0.005 % drops 1 drp EYE-BOTH BEDTIME Qty: 0 0RF aspirin 81 MG tablet,delayed release (DR/EC) 81 mg PO QAM Qty: 0 0RF levothyroxine 50 mcg tablet 50 mcg PO QAM Qty: 90 0RF Rx Instructions: Take one tab daily. Please check labs prior to more fills. atorvastatin 10 mg tablet See Rx Instructions .ROUTE .COMPLEX Qty: 90 2RF Dose Instruction: TAKE ONE TABLET BY MOUTH EVERY IN THE EVENING Rx Instructions: TAKE ONE TABLET BY MOUTH EVERY IN THE EVENING valsartan 160 mg tablet 160 mg PO QPM 0RF calcium carbonate [Calcium 500] 500 mg calcium (1,250 mg) Tablet 500 mg PO DAILY 0RF Rx Instructions: 4 hours from Levothyroxine unknown dose multivitamin Tablet 1 tab PO DAILY 0RF Referrals: Reyes Beckford MD [Primary Care Provider] -
[2021-03-07] MEDS: SODIUM CHLORIDE 0.9% 1,000 ML 1000 ML IV (21:07)
[2021-03-07 21:16] LABS: Add Manual Diff / Slide Review NO; Basophils Absolute Auto 0 /uL (0-100); Basophils Percent Auto 0.5 % (0-2); Eosinophils Absolute Auto 100 /uL (0-450); Eosinophils Percent Auto 1.9 % (2-4); Hematocrit 29.1 % (41-53); Lymphocytes Absolute Auto 1000 /uL (1100-4500); Lymphocytes Percent Auto 15.3 % (25-40); Mean Corpuscular HGB Conc 34.4 % (30-36); Mean Corpuscular Hemoglobin 28.3 PG (26-34); Mean Corpuscular Volume 82.2 fL (80-100); Monocytes Absolute Auto 400 /uL (0-900); Monocytes Percent Auto 5.9 % (3-14); Neutrophils Absolute Auto 5100 /uL (1500-7000); Neutrophils Percent Auto 76.4 % (50-75); Platelet Count 246 X10^3/uL (150-400); Red Blood Cell Count 3.53 X10^6/uL (4.5-5.9); Red Cell Distribution Width 14.8 % (11.6-14.8); White Blood Cell Count 6.7 X10^3/uL (4.5-11.0)
[2021-03-07 21:24] LABS: INR 1.1 (0.9-1.3)
[2021-03-07 21:27] LABS: PTT Partial Thromboplastin Tim 31 SECONDS (26.4-36.2)
[2021-03-07 21:29] LABS: Alanine Aminotransferase 16 IU/L (<50); Albumin 3.6 g/dL (3.5-5.0); Albumin Globulin Ratio 1.2 (1.0-2.8); Alkaline Phosphatase 72 U/L (38-126); Aspartate Aminotransferase 31 IU/L (17-59); Bilirubin Total 0.5 mg/dL (0.2-1.3); Blood Urea Nitrogen 31 mg/dL (9-20); Calcium 9.1 mg/dL (8.4-10.2); Carbon Dioxide 27 mmol/L (22-32); Chloride 103 mmol/L (98-107); Creatine Kinase 42 U/L (55-170); Estimated Glomerular Filt Rate 35.7 mL/min (>60); Globulin 2.9 g/dL (1.7-4.1); Glucose 101 mg/dL (80-110); HEMOLYSIS < 15 (0-50); Potassium 4.9 mmol/L (3.4-5.1); Sodium 133 mmol/L (137-145); Total Protein 6.5 g/dL (6.3-8.2)
[2021-03-07 21:40] LABS: NT-proBNP (BNP-Adult 18+) 955 pg/mL (<450); Troponin I < 0.012 ng/mL (0.01-0.034)
[2021-03-07] MEDS: APIXABAN 5 MG TABLET 10 MG PO (21:43)
== END 2021-03-07 22:49 | disposition home or self-care (01) ==
PROVIDERS: Emergency Provider Emergency Medicine; Family Provider Family Medicine; PCP Family Medicine
DX: I26.99 Other pulmonary embolism without acute cor pulmonale (principal); R00.1 Bradycardia, unspecified; R06.00 Dyspnea, unspecified; R79.89 Other specified abnormal findings of blood chemistry; D64.9 Anemia, unspecified; E03.9 Hypothyroidism, unspecified; Z86.718 Personal history of other venous thrombosis and embolism
CPT/HCPCS: 36415; 71275; 80053; 82550; 83540; 83550; 83880; 84439; 84443; 84481; 84484; 85025; 85379; 85610; 85730; 93005; 96360; 99284

== ENCOUNTER → 2021-03-28 09:20 | Outpatient (CLI) | payer MEDICARE, SELFPAY ==
--- NOTE | 2021-03-28 09:22 | DI.ECHO.S_ITS ---
[place] +---------+ [facility] +---------+ : : [address] : : : : [id number] : : : : Phone: [phone]+ Echocardiogram Report + + :Name: KANG BRAXTON Study Date: 03/28/2021 Height: 73 in : :[facility] ReadingLocation: Weight: 180 lb : : Gender: Male BSA: 2.1 m2 : :: 1935 Age: 85 yrs BP: 154/74 mmHg: :Reason For Study: DYSPNEA WITH EXERTION : :Ordering Physician: ARIADNA, : :JAMIE Martinez Performed By: Jennifer Hui : :Referring: JAMIE ROSENTHAL : + + Interpretation Summary The left ventricle is normal in size and wall thickness. Left ventricular systolic function appears normal without focal wall motion abnormalities. The ejection fraction is estimated to be 60-65%. This is unchanged compared to the previous study. The right ventricle is normal in size and function. The right ventricular systolic pressure is estimated to be at least 61 mmHg based on an estimated right atrial pressure of 3 mm Hg. The left atrium is mildly dilated. Right atrial size is normal. There is mild mitral regurgitation. There is no other significant valvular heart disease. The aortic root is normal size. Mild atherosclerotic plaque(s) in the aortic arch. Procedure: A two-dimensional transthoracic echocardiogram with color flow and Doppler was performed. The study quality was technically adequate. Comparison is made with the echocardiogram of 03/15/2020. The patient was in sinus bradycardia with heart rates between 52-66 bpm during the exam. Left Ventricle: The left ventricle is normal in size and wall thickness. Left ventricular systolic function appears normal without focal wall motion abnormalities. The ejection fraction is estimated to be 60-65%. This is unchanged compared to the previous study. Diastolic function could not be accurately assessed due to contradictory data. Right Ventricle: The right ventricle is normal in size and function. Atria: The left atrium is mildly dilated. Right atrial size is normal. There is no Doppler evidence for an interatrial shunt. Mitral Valve: The mitral valve is normal in structure and function. There is mild mitral regurgitation. Aortic Valve: The aortic valve is trileaflet. There is mild aortic valve sclerosis. There is no aortic valve stenosis. There is trace aortic regurgitation. Tricuspid Valve: The tricuspid valve is normal in structure and function. There is mild tricuspid regurgitation. The right ventricular systolic pressure is estimated to be at least 61 mmHg based on an estimated right atrial pressure of 3 mm Hg. Pulmonic Valve: The pulmonic valve is not well visualized. There is no pulmonic valvular regurgitation. There is no other significant valvular heart disease. Great Vessels: The aortic root is normal size. The ascending aorta could not be visualized. Mild atherosclerotic plaque(s) in the aortic arch. The IVC is of normal diameter and collapses greater than 50% with a sniff. This suggests a low right atrial pressure of 3 mm Hg. Pericardium/ Pleura There is no pericardial effusion. There is no pleural effusion. MMode/2D Measurements & Calculations LVIDd: 4.4 cm LVOT diam: 2.0 cm LVIDs: 2.8 cm Ao root diam: 3.5 cm FS: 36.7 % Ao Arch Diam (Prox Trans): 2.7 cm IVSd: 0.84 cm LVPWd: 0.77 cm LV aguilera. diameter/BSA (cm/m^2): 2.1 LV sys. diameter/BSA (cm/m^2): 1.3 LA A2 area: 24.4 cm2 RA long axis: 5.8 cm LA A4 area: 20.0 cm2 RA area: 16.8 cm2 LA length (vol): 5.7 cm RA vol: 41.7 ml LA vol: 73.1 ml RA : 20.2 ml/m2 LA vol index: 35.5 ml/m2 IVC diam: 1.5 cm RVD1 (basal): 3.2 cm TAPSE: 2.3 cm Doppler Measurements & Calculations Ao V2 max: 144.0 cm/sec LVOT Max He: 110.7 cm/sec Ao V2 mean: 98.6 cm/sec LV V1 max P.9 mmHg Ao max P.3 mmHg LV V1 VTI: 26.5 cm Ao mean P.3 mmHg HIEN(I,D): 2.4 cm2 Ao V2 VTI: 33.0 cm HIEN(V,D): 2.3 cm2 sev ratio: 0.80 HIEN indexed to BSA (cm^2/m^2): 1.2 MV E max he: 105.1 cm/sec TR max he: 382.2 cm/sec MV A max he: 58.4 cm/sec TR max P.4 mmHg MV E/A: 1.8 PA V2 max: 104.9 cm/sec Med Peak E' He: 8.3 cm/sec PA V2 mean: 76.4 cm/sec E/E' med: 12.7 PA mean P.6 mmHg Lat Peak E' He: 12.7 cm/sec E/E' lat: 8.3 E/e' average: 10.5 MV dec time: 0.25 sec SV(LVOT): 80.1 ml Reading Physician:02:52 PM
== END ==
PROVIDERS: Family Provider Family Medicine; PCP Family Medicine; Referring Provider Physician Assistant; Visit Provider Physician Assistant
DX: I10 Essential (primary) hypertension (principal); R06.00 Dyspnea, unspecified; I34.0 Nonrheumatic mitral (valve) insufficiency
CPT/HCPCS: 93306

== ENCOUNTER → 2021-05-23 06:58 | Outpatient (CLI) | payer MEDICARE, SELFPAY ==
[2021-04-02 16:30] VITALS: BMI 25.3
[2021-05-23 07:38] LABS: COVID19 -Nasal RAPID Negative (Negative)
== END ==
PROVIDERS: Family Provider Family Medicine; PCP Family Medicine; Referring Provider Internal Medicine; Visit Provider Internal Medicine
DX: Z20.822 Contact with and (suspected) exposure to COVID-19 (principal)
CPT/HCPCS: 87635; C9803

== ENCOUNTER → 2021-05-24 06:59 | Outpatient (CLI) | payer MEDICARE, SELFPAY ==
[2021-04-02 16:30] VITALS: BMI 25.3
--- NOTE | 2021-05-30 11:57 | PM.PFT.1 ---
Pulmonary Function Test Referral & Results Date Patient Seen: 05/24/21 Requesting provider: Reyes Beckford Results: The spirometry demonstrates an FVC of 4.46 L which is 102% of predicted. The FEV1 was measured at 2.77 L which is 90% of predicted. The FEV1/FVC ratio was 62 which is 87% of predicted. Following the administration of bronchodilator there was a 28% improvement in FEF 25-75% Lung volumes show an SVC of 4.14 L which is 86% of predicted. The diffusing capacity was measured at 18.52 which is 50% of predicted. No hemoglobin value was provided, so no correction for potential anemia could be made, if appropriate. The maximum voluntary ventilation was minimally reduced Interpretation: This study demonstrates normal spirometry although there is a reduction maximum voluntary ventilation which in the absence of any significant abnormalities of spirometry would suggest the possible presence of neuromuscular disease There is a noted moderate reduction diffusing capacity suggesting disease at the capillary alveolar level Clinical correlation suggested
== END ==
PROVIDERS: Family Provider Family Medicine; PCP Family Medicine; Referring Provider Family Medicine; Visit Provider Family Medicine
DX: R06.00 Dyspnea, unspecified (principal); Z87.891 Personal history of nicotine dependence
CPT/HCPCS: 94060; 94726; 94729

== ENCOUNTER → 2021-08-15 14:01 | Outpatient (CLI) | payer MEDICARE, SELFPAY ==
[2021-04-02 16:30] VITALS: BMI 25.3
[2021-08-15 14:25] LABS: COVID19 -Nasal RAPID POSITIVE (Negative)
== END ==
PROVIDERS: Family Provider Family Medicine; PCP Family Medicine; Visit Provider Nurse Practitioner Family
DX: U07.1 COVID-19 (principal); Z20.822 Contact with and (suspected) exposure to COVID-19
CPT/HCPCS: 87635

== ENCOUNTER → 2021-09-04 14:42 | Outpatient (CLI) | payer MEDICARE, SELFPAY ==
[2021-04-02 16:30] VITALS: BMI 25.3
[2021-09-06 03:31] LABS: Free T3, Triiodothyronine Free 2.85 pg/mL (2.77-5.27)
[2021-09-06 03:55] LABS: Thyroid Stimulating Hormone < 0.015 uIU/mL (0.47-4.68)
[2021-09-06 04:35] LABS: HEMOLYSIS < 15 (0-50)
[2021-09-06 04:44] LABS: Alanine Aminotransferase 14 IU/L (<50); Albumin 3.3 g/dL (3.5-5.0); Albumin Globulin Ratio 1.4 (1.0-2.8); Alkaline Phosphatase 58 U/L (38-126); Aspartate Aminotransferase 32 IU/L (17-59); BUN Creatinine Ratio 16.9 (6-22); Bilirubin Total 0.4 mg/dL (0.2-1.3); Blood Urea Nitrogen 31 mg/dL (9-20); Carbon Dioxide 26 mmol/L (22-32); Chloride 107 mmol/L (98-107); Estimated Glomerular Filt Rate 36 mL/min (>60); Globulin 2.4 g/dL (1.7-4.1); Glucose 76 mg/dL (80-110); Potassium 4.2 mmol/L (3.4-5.1); Sodium 138 mmol/L (137-145); Total Protein 5.7 g/dL (6.3-8.2)
[2021-09-06 05:36] LABS: Adrenocorticotropic Hormone 7.3 pg/mL (7.2-63.3)
[2021-09-06 05:56] LABS: Testosterone 6.65 ng/dL (71.8-623)
== END ==
PROVIDERS: Family Provider Family Medicine; PCP Family Medicine; Referring Provider Nurse Practitioner; Visit Provider Nurse Practitioner
DX: E03.8 Other specified hypothyroidism (principal); D35.2 Benign neoplasm of pituitary gland; E27.40 Unspecified adrenocortical insufficiency; E23.2 Diabetes insipidus
CPT/HCPCS: 36415; 80053; 82024; 82533; 84146; 84403; 84439; 84443; 84481

== ENCOUNTER 2021-11-17 09:38 | Emergency (ER) | payer MEDICARE, SELFPAY ==
[2021-04-02 16:30] VITALS: BMI 25.3
[2021-11-17] VITALS (16 sets, daily range): BP systolic 172–225; BP diastolic 74–93; PULSE 53–69; RESP 16–22; TEMP 36.6; O2SAT 95–99; BMI 23.7
--- NOTE | 2021-11-17 09:42 | DI.RAD.S_ITS ---
PROCEDURE: XR CHEST 1V INDICATIONS: sycope TECHNIQUE: One view of the chest was acquired. COMPARISON: [facility], CT, CT ANGIO CHEST PE PROTOCOL, 03/07/2021, 16:47. [facility], CR, XR CHEST 1V, 02/26/2021, 13:26. FINDINGS: Surgical changes and devices: None. Lungs and pleura: Numerous peripheral hazy opacities most prominent within the right upper lobe. Additional subtle airspace opacities with bibasilar atelectasis. Questionable small right pleural effusion. No pneumothorax. Mediastinum: Mediastinal contours appear normal. Heart size is normal. Bones and chest wall: No suspicious bony lesions. Overlying soft tissues appear unremarkable. IMPRESSION: Increased airspace opacities within the right upper lobe with additional subtle areas of infiltration concerning for atypical infection and/or scarring. Dictated by: Pablo Leiva M.D. on 11/17/2021 at 8:59 Approved by: Pablo Leiva M.D. on 11/17/2021 at 9:02
--- NOTE | 2021-11-17 09:42 | DI.CT.S_ITS ---
PROCEDURE: CT ANGIO HEAD AND NECK INDICATIONS: syncope TECHNIQUE: Previous non con head CT was obtained. After the administration of intravenous contrast, 1 mm thick sections acquired from the aortic arch through the [place]. Post-contrast 4.5 mm thick sections then re-acquired from the foramen magnum to the vertex. 3-dimensional ozveghn-wdssdrlnb-ymwkqdpkfa (MIP) and/or volume rendering reformats were acquired of the central intracranial vasculature and neck separately. For radiation dose reduction, the following was used: automated exposure control, adjustment of mA and/or kV according to patient size. COMPARISON: None. FINDINGS: Image quality: Excellent. BRAIN: CSF spaces: Ventricles are normal in size and shape. Basal cisterns are patent. No extra-axial fluid collections. Brain: No midline shift. No intracranial bleeds or masses. Soriano-white matter interface appears intact. Skull and face: Calvarium and facial bones appear intact, without suspicious lesions. Orbits appear normal. Sinuses: Sinuses and mastoids are clear. HEAD CT ANGIOGRAPHY: Anterior circulation: Intracranial internal carotid arteries are normal in size and flow. The flow within the paired anterior cerebral arteries is normal and symmetric. The flow within the middle cerebral arteries is normal and symmetric. The anterior communicating artery is seen. No aneurysms are seen. Posterior circulation: Visualized portions of the vertebral arteries demonstrate normal caliber, and join to form a normal appearing basilar artery. Flow within the posterior cerebral arteries is normal and symmetric. No aneurysms are seen. NECK CT ANGIOGRAPHY: Carotid system: The origin of the great vessels is not seen. The origins of the common carotid arteries appear patent. The common carotid arteries demonstrate normal caliber and courses. The takeoff of the right internal carotid artery demonstrates a high-grade stenosis due to calcifications of the jugular bulb resulting in a 75% stenosis. The left internal carotid artery is widely patent. The remaining internal carotid arteries demonstrate normal calibers and courses. Posterior circulation: Approximately 70% stenosis of the takeoff of the left vertebral artery and 50% stenosis of takeoff of the right vertebral artery. The more superior extracranial portions of both vertebral arteries also demonstrate normal courses and calibers. They join to form a normal appearing basilar artery. Soft tissues: Visualized neck soft tissues demonstrate no suspicious abnormalities. Right upper lobe scarring/fibrosis. Bones: No suspicious bony lesions. Visualized cervical spine appears normally aligned. IMPRESSION: 1. No intracranial aneurysm. 2. 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 3. 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 4. Right upper lobe fibrosis and/or scarring. Any quantitative measurements of stenosis were performed using NASCET criteria. Dictated by: Pablo Leiva M.D. on 11/17/2021 at 9:11 Approved by: Pablo Leiva M.D. on 11/17/2021 at 9:25
--- NOTE | 2021-11-17 09:43 | DI.CT.S_ITS ---
PROCEDURE: CT HEAD/BRAIN WO CON INDICATIONS: fall hit head on thinners/syncope with +LOC TECHNIQUE: Noncontrast 4.5 mm thick angled axial sections acquired from the foramen magnum to the vertex, with coronal and sagittal reformats. For radiation dose reduction, the following was used: automated exposure control, adjustment of mA and/or kV according to patient size. COMPARISON: [facility], CT, CT HEAD/BRAIN WO CON, 05/15/2019, 15:29. FINDINGS: Image quality: Excellent. CSF spaces: Basal cisterns are patent. No extra-axial fluid collections. The ventricles are symmetric in size and shape. Brain: No intracranial bleeds or masses. There is cerebral volume loss for age, with resultant ventricular and sulcal prominence. There are periventricular and deep white matter chronic small vessel ischemic changes. There is intracranial internal carotid artery atherosclerosis. Skull and face: Calvarium and visualized facial bones appear intact, without suspicious lesions. Sinuses: Visualized sinuses and mastoids are clear. IMPRESSION: No intracranial hemorrhage. Dictated by: Pablo Leiva M.D. on 11/17/2021 at 9:03 Approved by: Pablo Leiva M.D. on 11/17/2021 at 9:05
--- NOTE | 2021-11-17 09:47 | ED_ITS ---
HPI - Syncope General Chief Complaint: Syncope Stated Complaint: syncope/fall Time Seen by Provider: 11/17/21 09:42 Source: patient and EMS Mode of arrival: EMS Limitations: no limitations History of Present Illness HPI narrative: This is a 86-year-old male with history of pituitary tumor with surgery x2, prior pulmonary emboli anticoagulated with a history of factor 5 Leiden, chronic kidney disease, hypertension, dyslipidemia, hypothyroidism and prior episodes of syncope. Patient presents today patient was feeling normal, he was reversing they were swinging they done 10 songs in a row he was standing felt lightheaded actually went to get to drink some water thought he should sit down but did not continued singing and states remembers falling to the ground but did have 1-2 minute loss of consciousness that was witnessed. No tonic-clonic or seizure- like activity. Patient states he feels back to normal immediately thereafter. Patient has had prior episodes 6 or 7 times typically was standing only 1 where he was sitting but was singing at that time. Patient states he has not had any fevers or chills, no cold, cough or congestion. He denies any headaches prior to or after episode, no chest pain or pressure today, no shortness of breath, no nausea or vomiting, no diaphoresis, denies any numbness, tingling or weakness of extremities. Denies any bowel or bladder incontinence. Denies any other GI or urinary symptoms recently. Patient states he has not had any missed doses of his anticoagulation, he denies other surgeries besides his pituitary surgery x2, no tobacco, occasional alcohol but nothing recently, no illicit. Patient states he has been taking his medications regularly he is quite hypertensive today and orthostatics were negative with patient's blood pressure increasing when performed by EMS. Related Data Home Medications Medication Instructions Recorded Confirmed hydrocortisone 20 mg tablet 20 mg PO DAILY ##0 09/30/16 07/01/21 (Cortef) desmopressin 0.1 mg tablet 0.05 mg PO BEDTIME ##0 01/14/17 07/01/21 latanoprost 0.005 % eye drops 1 drp EYE-BOTH BEDTIME ##0 01/21/17 07/01/21 calcium carbonate 500 mg calcium 500 mg PO DAILY 07/05/18 07/01/21 (1,250 mg) tablet (Calcium 500) multivitamin 1 tab PO DAILY 07/05/18 07/01/21 valsartan 160 mg tablet 160 mg PO QPM 07/05/18 07/01/21 levothyroxine 75 mcg tablet 75 mcg PO DAILY 07/01/21 07/01/21 Previous Rx's Medication Instructions Recorded atorvastatin 10 mg tablet See Rx Instructions .Route 03/18/21 .COMPLEX #90 tabs apixaban 5 mg tablet (Eliquis) 5 mg PO BID #180 tabs 04/02/21 benzonatate 100 mg capsule 100 mg PO BID PRN cough #20 caps 08/15/21 tamsulosin 0.4 mg capsule (Flomax) 0.4 mg PO DAILY #90 caps 09/03/21 Allergies Allergy/AdvReac Type Severity Reaction Status Date / Time No Known Drug Allergies Allergy Unknown Verified 07/01/21 13:52 [NO KNOWN DRUG ALLERGIES] Review of Systems Review of Systems ROS Unobtainable: All systems reviewed & are unremarkable except as noted in HPI and below Patient History Medical History Acute kidney injury Cataract (11/30/14) Dehydration Elevated troponin Glaucoma (11/30/14) Hyperlipidemia (11/30/14) Hypertension (11/30/14) Pituitary adenoma (01/14/17) Syncope 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) Surgical History Status post appendectomy Family History Grandfather Mental health problem Grandmother Hypertension Mother Age: 108 Colon cancer Grandfather Heart disease Social History household members: spouse Smoking Status: Former smoker alcohol intake: current Smoking Status: Former smoker alcohol intake frequency: a few times a week Substance Use Type: does not use Exam Narrative Exam Narrative: GEN: well nourished, well appearing male, alert and oriented x 3, patient appears to be in mild distress. HEENT: Patient has some small abrasions over the mid forehead and nasal bridge, pupils are equal round reactive to light, extraocular movements are intact, nares are clear, TMs are clear with no fluid, there is no conjunctival pallor. Throat is clear without any exudates, erythema, tonsillar enlargement or uvular deviation, no dental or oral injury appreciated. HEART: Regular rate and rhythm without murmur, clicks, rubs. Pulses are equal in upper and lower extremities LUNGS:Lungs clear to auscultation, no wheezes, rales, crackles, chest moves symmetrically, no tachypnea accessory muscle use. ABD:bowel sounds normal, soft, non-tender, no guarding, rebound, rigidity, no masses noted, no hepatosplenomegaly :No CVA tenderness BACK: No cervical, thoracic or lumbar vertebral point tenderness. Patient has normal range of motion. MSCL: Non-tender, no muscle atrophy, muscles strength 5/5 upper and lower extremities, full range of motion, normal gait NEURO:CN 2-12 intact, sensation normal, reflexes 2/4 upper and lower extremities SKIN: Abrasions as noted above, no rash, petechiae or other skin changes noted. Initial Vital Signs Initial Vital Signs: Vital Signs Pulse Oximetry 97 11/17/21 09:52 Course Orders Ordered: ED Orders 11/17/21 10:03 COVID19 -Nasal RAPID/Pre-Proc Stat 11/17/21 10:07 EKG-12 Lead Stat 11/17/21 11:52 Trop I [Troponin I] Stat Discontinued Medications Diphtheria/Tetanus/Acell Pertussis (Tet,Diph,Pertuss(Acell),Vac/Pf 0.5 Ml Syringe) 0.5 ml IM .ONCE ONE Stop: 11/17/21 10:50 Last Admin: 11/17/21 11:54 Dose: 0.5 ml Documented By: OSMAN Sodium Chloride (Normal Saline 0.9%) 1,000 mls @ 150 mls/hr IV CONT NATALEE Last Admin: 11/17/21 10:19 Dose: 150 mls/hr Documented By: OSMAN Vital Signs Vital signs: Vital Signs - 8 hr 11/17/21 11:20 11/17/21 11:20 11/17/21 11:30 Pulse Rate 56 L 56 L Respiratory Rate 18 20 Blood Pressure 181/76 H Pulse Oximetry 98 96 11/17/21 11:31 11/17/21 11:31 11/17/21 11:51 Pulse Rate 53 L 57 L Respiratory Rate 21 16 Blood Pressure 191/81 H Pulse Oximetry 95 99 11/17/21 11:51 11/17/21 12:00 11/17/21 12:01 Pulse Rate 54 L 54 L Respiratory Rate 17 19 Blood Pressure 213/84 H Pulse Oximetry 98 98 11/17/21 12:01 11/17/21 12:30 11/17/21 12:31 Pulse Rate 69 69 Respiratory Rate 22 22 Blood Pressure 191/88 H Pulse Oximetry 97 95 11/17/21 12:36 11/17/21 12:36 Pulse Rate 60 Respiratory Rate 17 Blood Pressure 172/74 H Pulse Oximetry 96 MDM - Syncope Lab Data Result diagrams: 11/17/21 09:49 11/17/21 09:49 Labs: Lab Results 11/17/21 11/17/21 11/17/21 Range/Units 09:49 09:49 09:49 WBC 7.0 (4.5-11.0) X10^3/uL RBC 4.13 L (4.5-5.9) X10^6/uL Hgb 11.9 L (13.5-17.5) g/dL Hct 35.7 L (41-53) % MCV 86.4 (80-100) fL MCH 28.8 (26-34) PG MCHC 33.4 (30-36) % RDW 14.8 (11.6-14.8) % Plt Count 179 (150-400) X10^3/uL Neut % (Auto) 48.8 L (50-75) % Lymph % (Auto) 37.1 (25-40) % Cameron % (Auto) 7.2 (3-14) % Eos % (Auto) 6.6 H (2-4) % Baso % (Auto) 0.3 (0-2) % Neut # (Auto) 3400 (9090-2834) /uL Lymph # (Auto) 2600 (4549-6542) /uL Cameron # (Auto) 500 (0-900) /uL Eos # (Auto) 500 H (0-450) /uL Baso # (Auto) 0 (0-100) /uL PT 14.0 H (10.1-12.7) SECONDS INR 1.2 (0.9-1.3) APTT 32 (26-36) SECONDS Sodium 136 L (137-145) mmol/L Potassium 3.8 (3.4-5.1) mmol/L Chloride 104 (98-107) mmol/L Carbon Dioxide 27 (22-32) mmol/L BUN 30 H (9-20) mg/dL Creatinine 2.10 H (0.66-1.25) mg/dL Estimated GFR 30 L (>60) mL/min BUN/Creatinine Ratio 14.3 (6-22) Glucose 107 (80-110) mg/dL Calcium 8.8 (8.4-10.2) mg/dL Total Bilirubin 0.5 (0.2-1.3) mg/dL AST 34 (17-59) IU/L ALT 17 (<50) IU/L Alkaline Phosphatase 60 (38-126) U/L Total Creatine Kinase 59 (55-170) U/L CK-MB (CK-2) TNP CK-MB (CK-2) Rel Index TNP Troponin I < 0.012 (0.01-0.034) ng/mL NT-Pro-B Natriuret Pep 1060 H (<450) pg/mL Total Protein 6.7 (6.3-8.2) g/dL Albumin 3.9 (3.5-5.0) g/dL Globulin 2.8 (1.7-4.1) g/dL Albumin/Globulin Ratio 1.4 (1.0-2.8) Lipase 298 (23-300) U/L SARS-CoV-2 (PCR) (Negative) 11/17/21 11/17/21 Range/Units 10:03 11:52 WBC (4.5-11.0) X10^3/uL RBC (4.5-5.9) X10^6/uL Hgb (13.5-17.5) g/dL Hct (41-53) % MCV (80-100) fL MCH (26-34) PG MCHC (30-36) % RDW (11.6-14.8) % Plt Count (150-400) X10^3/uL Neut % (Auto) (50-75) % Lymph % (Auto) (25-40) % Cameron % (Auto) (3-14) % Eos % (Auto) (2-4) % Baso % (Auto) (0-2) % Neut # (Auto) (1488-1907) /uL Lymph # (Auto) (1217-6924) /uL Cameron # (Auto) (0-900) /uL Eos # (Auto) (0-450) /uL Baso # (Auto) (0-100) /uL PT (10.1-12.7) SECONDS INR (0.9-1.3) APTT (26-36) SECONDS Sodium (137-145) mmol/L Potassium (3.4-5.1) mmol/L Chloride (98-107) mmol/L Carbon Dioxide (22-32) mmol/L BUN (9-20) mg/dL Creatinine (0.66-1.25) mg/dL Estimated GFR (>60) mL/min BUN/Creatinine Ratio (6-22) Glucose (80-110) mg/dL Calcium (8.4-10.2) mg/dL Total Bilirubin (0.2-1.3) mg/dL AST (17-59) IU/L ALT (<50) IU/L Alkaline Phosphatase (38-126) U/L Total Creatine Kinase (55-170) U/L CK-MB (CK-2) CK-MB (CK-2) Rel Index Troponin I < 0.012 (0.01-0.034) ng/mL NT-Pro-B Natriuret Pep (<450) pg/mL Total Protein (6.3-8.2) g/dL Albumin (3.5-5.0) g/dL Globulin (1.7-4.1) g/dL Albumin/Globulin Ratio (1.0-2.8) Lipase (23-300) U/L SARS-CoV-2 (PCR) Negative (Negative) Imaging Data CT scan - head: Radiologist's Impression: [address] [address] [address] Scan Report Signed Patient: Pablo Saez MR#: [id number] : 1935 Acct:[id number] Age/Sex: 86 / M Date of Service: 11/17/21 Loc: ED Accession Number: [id number] ?? Procedure: CT head/brain wo con Ordering Provider: Parris Mckay D.O. PROCEDURE:? CT HEAD/BRAIN WO CON ? INDICATIONS:? fall hit head on thinners/syncope with +LOC ? TECHNIQUE:? Noncontrast 4.5 mm thick angled axial sections acquired from the foramen magnum to the vertex, with coronal and sagittal reformats.? For radiation dose reduction, the following was used:? automated exposure control, adjustment of mA and/or kV according to patient size.? ? COMPARISON:? [facility], CT, CT HEAD/BRAIN WO CON, 05/15/2019, 15:29. ? FINDINGS:? Image quality:? Excellent.? ? CSF spaces:? Basal cisterns are patent.? No extra-axial fluid collections.? The ventricles are symmetric in size and shape.? ? Brain:? No intracranial bleeds or masses.? There is cerebral volume loss for age, with resultant ventricular and sulcal prominence.? There are periventricular and deep white matter chronic small vessel ischemic changes.? There is intracranial internal carotid artery atherosclerosis.? ? Skull and face:? Calvarium and visualized facial bones appear intact, without suspicious lesions.? ? Sinuses:? Visualized sinuses and mastoids are clear.? ? IMPRESSION:? No intracranial hemorrhage. ? ? Dictated by: Pablo Leiva M.D. on 11/17/2021 at 9:03 ? ? Approved by: Pablo Leiva M.D. on 11/17/2021 at 9:05?? CTA - brain/neck: Radiologist's Impression: Pablo Saez??86??M??1935 ? Allergy/Adv: No Known Drug Allergies (More??) Close Head CT (Signed) Pablo Leiva - 11/17/21 Head/Neck CTA (Signed) Pablo Leiva - 11/17/21 Chest X-Ray (Signed) Pablo Leiva - 11/17/21 PFT Result 05/27/21 PFT Result 05/24/21 Echocardiogram Ultrasound (Signed) Bharathi Castano - 03/28/21 Chest CTA (Signed) Reyes Leiva - 03/07/21 EKG Rpt. 03/07/21 Chest X-Ray (Signed) Cruz Quinteros - 02/26/21 Chest X-Ray (Signed) Mervin Lazar - 11/27/20 Echocardiogram Ultrasound (Signed) Cortez Fishman - 03/15/20 Vascular Ultrasound (Signed) Reyes Leiva - 02/21/[address] (Signed) Shaheen Mullins - 05/15/19 Chest X-Ray (Signed) Shaheen Mullins - 05/15/19 Chest X-Ray (Signed) NielsAnsleyTaz - 03/31/19 Bone Densitometry 03/31/19 Abdomen/Pelvis CT (Signed) Ryne Boykin - 11/15/[address] (Signed) VirajAlxe - 09/06/18 Chest X-Ray (Signed) Mervin Lazar - 08/20/[address] (Signed) Ernesto Daniels - 07/05/18 Chest X-Ray (Signed) Em Chavira - 07/05/18 Brain MRI (Signed) Adan Frausto - 02/15/18 Telemetry Strips 01/21/17 [place] [address] CT Scan Report Signed Patient: Pablo Saez MR#: [id number] : 1935 Acct:[id number] Age/Sex: 86 / M Date of Service: 11/17/21 Loc: ED Accession Number: [id number] ?? Procedure: CT angio head and neck Ordering Provider: Parris Mckay D.O. PROCEDURE:? CT ANGIO HEAD AND NECK ? INDICATIONS:? syncope ? TECHNIQUE:? Previous non con head CT was obtained.? After the administration of intravenous contrast, 1 mm thick sections acquired from the aortic arch through the [place] of [place].? Post-contrast 4.5 mm thick sections then re-acquired from the foramen magnum to the vertex.? 3-dimensional amtqkfs-ykpupdnbg-jawelulocn (MIP) and/or volume rendering reformats were acquired of the central intracranial vasculature and neck separately. For radiation dose reduction, the following was used:? automated exposure control, adjustment of mA and/or kV according to patient size.? ? COMPARISON:? None. ? FINDINGS:? Image quality:? Excellent.? ? BRAIN:? CSF spaces:? Ventricles are normal in size and shape.? Basal cisterns are patent.? No extra-axial fluid collections.? ? Brain:? No midline shift.? No intracranial bleeds or masses.? Soriano-white matter interface appears intact.? ? Skull and face:? Calvarium and facial bones appear intact, without suspicious lesions.? Orbits appear normal.? ? Sinuses:? Sinuses and mastoids are clear.? ? HEAD CT ANGIOGRAPHY:? Anterior circulation:? Intracranial internal carotid arteries are normal in size and flow.? The flow within the paired anterior cerebral arteries is normal and symmetric.? The flow within the middle cerebral arteries is normal and symmetric.? The anterior communicating artery is seen.? No aneurysms are seen.? ? Posterior circulation:? Visualized portions of the vertebral arteries demonstrate normal caliber, and join to form a normal appearing basilar artery.? Flow within the posterior cerebral arteries is normal and symmetric.? No aneurysms are seen.? ? NECK CT ANGIOGRAPHY:? Carotid system:? The origin of the great vessels is not seen.? The origins of the common carotid arteries appear patent.? The common carotid arteries demonstrate normal caliber and courses.? The takeoff of the right internal carotid artery demonstrates a high-grade stenosis due to calcifications of the jugular bulb resulting in a 75% stenosis.? The left internal carotid artery is widely patent.? The remaining internal carotid arteries demonstrate normal calibers and courses.? ? Posterior circulation:? Approximately 70% stenosis of the takeoff of the left vertebral artery and 50% stenosis of takeoff of the right vertebral artery.? The more superior extracranial portions of both vertebral arteries also demonstrate normal courses and calibers.? They join to form a normal appearing basilar artery.? ? Soft tissues:? Visualized neck soft tissues demonstrate no suspicious abnormalities.? ? Right upper lobe scarring/fibrosis. ? Bones:? No suspicious bony lesions.? Visualized cervical spine appears normally aligned.? IMPRESSION:? 1. No intracranial aneurysm. 2. 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 3. 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 4. Right upper lobe fibrosis and/or scarring. ? Any quantitative measurements of stenosis were performed using NASCET criteria.? ? ? Dictated by: Pablo Leiva M.D. on 11/17/2021 at 9:11 ? ? Approved by: Pablo Leiva M.D. on 11/17/2021 at 9:25?? ECG Data Attestation: I personally reviewed and interpreted this ECG as follows: Prior ECG tracings: available for review Interpretation: Sinus rhythm, premature atrial complex, rate of 60 SD 186 QRS 84 QTC of 436. No acute ST changes appreciated. Patient has prior from 03/07/2021. EKG 2. Shows sinus bradycardia rate of 55 SD 206 QRS 78 QTC 426. No acute ST changes appreciated. No ST elevation, no ischemic changes. Nonspecific change similar to prior. MDM Narrative Medical decision making narrative: This is an 86-year-old male with multiple prior syncopal episodes typically when standing sometimes when singing. Patient was standing actively seeking had a little bit of symptoms just prior, patient has not had any other preceding symptoms other than feeling little lightheaded. Has prior history of pulmonary emboli but is appropriate anticoagulated without any missed doses with no tachycardia, no hypoxia, head CT is negative for acute change, CT angio shows some stenosis 75% at maximum, patient has not had any stroke-like symptoms or other acute neurologic changes. Initial workup shows a slight bump in creatinine from his normal baseline appears to be 1.8-1 point 90s 2.1 today, electrolytes are otherwise normal, patient is mildly anemic at 11, INR PTT are not acutely changed, troponin is negative BNP slightly elevated. Plan for repeat troponin and EKG patient does not have any obvious arrhythmias today patient has priors which appears similar. Patient is quite hypertensive upon arrival. He states he did have his daily medications today. On prior visits he has been 200 to 190s during his stay and has been trending down words appropriately. Patient has ambulated back and forth to the bathroom several times without any issue. Discussed his findings today need for follow-up, continue to monitor his blood pressure if persistently elevated probably needs medication changes and return precautions. 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 Your CT angio also showed some atherosclerosis and stenosis and you may benefit from either a stent of your carotid artery or adjustment of your cholesterol medication. Talk with your physician. Your blood pressure was elevated today it has been trending down and improving during your stay but I would ask that you continue to recheck it at home if you are staying elevated persistently please re-contact your physician to see if you need your medication adjusted. If it is significantly elevated and you are having symptoms please return to the ER. You may continue your home medications as prescribed at this time. Please return for recurrent symptoms, passing out, severe headaches, new chest pain, shortness of breath, numbness, tingling weakness, persistent vomiting or other new or concerning symptoms. Prescriptions: No Action Eliquis 5 mg tablet 5 mg PO BID Qty: 180 3RF Rx Instructions: Take one tablet twice daily levothyroxine 75 mcg tablet 75 mcg PO DAILY benzonatate 100 mg capsule 100 mg PO BID PRN (Reason: cough) Qty: 20 0RF hydrocortisone [Cortef] 20 MG tablet 20 mg PO DAILY Qty: 0 desmopressin 0.1 MG tablet 0.05 mg PO BEDTIME Qty: 0 latanoprost 0.005 % drops 1 drp EYE-BOTH BEDTIME Qty: 0 atorvastatin 10 mg tablet See Rx Instructions .ROUTE .COMPLEX Qty: 90 3RF Dose Instruction: TAKE ONE TABLET BY MOUTH EVERY IN THE EVENING Rx Instructions: TAKE ONE TABLET BY MOUTH EVERY IN THE EVENING tamsulosin [Flomax] 0.4 mg capsule 0.4 mg PO DAILY Qty: 90 1RF valsartan 160 mg tablet 160 mg PO QPM calcium carbonate [Calcium 500] 500 mg calcium (1,250 mg) Tablet 500 mg PO DAILY Rx Instructions: 4 hours from Levothyroxine unknown dose multivitamin Tablet 1 tab PO DAILY Referrals: Reyes Beckford MD [Primary Care Provider] - Visit Report Forms: Patient Portal/API
[2021-11-17 10:01] LABS: Add Manual Diff / Slide Review NO; Basophils Absolute Auto 0 /uL (0-100); Basophils Percent Auto 0.3 % (0-2); Eosinophils Absolute Auto 500 /uL (0-450); Eosinophils Percent Auto 6.6 % (2-4); Hematocrit 35.7 % (41-53); Hemoglobin 11.9 g/dL (13.5-17.5); Lymphocytes Absolute Auto 2600 /uL (1100-4500); Lymphocytes Percent Auto 37.1 % (25-40); Mean Corpuscular HGB Conc 33.4 % (30-36); Mean Corpuscular Hemoglobin 28.8 PG (26-34); Mean Corpuscular Volume 86.4 fL (80-100); Monocytes Absolute Auto 500 /uL (0-900); Monocytes Percent Auto 7.2 % (3-14); Neutrophils Absolute Auto 3400 /uL (1500-7000); Neutrophils Percent Auto 48.8 % (50-75); Platelet Count 179 X10^3/uL (150-400); Red Blood Cell Count 4.13 X10^6/uL (4.5-5.9); Red Cell Distribution Width 14.8 % (11.6-14.8)
[2021-11-17 10:12] LABS: INR 1.2 (0.9-1.3)
[2021-11-17 10:15] LABS: PTT Partial Thromboplastin Tim 32 SECONDS (26-36)
[2021-11-17] MEDS: SODIUM CHLORIDE 0.9% 1,000 ML 150 ML IV (10:19)
[2021-11-17 10:20] LABS: Alanine Aminotransferase 17 IU/L (<50); Albumin 3.9 g/dL (3.5-5.0); Albumin Globulin Ratio 1.4 (1.0-2.8); Alkaline Phosphatase 60 U/L (38-126); Aspartate Aminotransferase 34 IU/L (17-59); BUN Creatinine Ratio 14.3 (6-22); Bilirubin Total 0.5 mg/dL (0.2-1.3); Blood Urea Nitrogen 30 mg/dL (9-20); Calcium 8.8 mg/dL (8.4-10.2); Carbon Dioxide 27 mmol/L (22-32); Chloride 104 mmol/L (98-107); Creatine Kinase 59 U/L (55-170); Estimated Glomerular Filt Rate 30 mL/min (>60); Globulin 2.8 g/dL (1.7-4.1); Glucose 107 mg/dL (80-110); HEMOLYSIS < 15 (0-50); Lipase 298 U/L (23-300); Potassium 3.8 mmol/L (3.4-5.1); Sodium 136 mmol/L (137-145); Total Protein 6.7 g/dL (6.3-8.2)
[2021-11-17 10:31] LABS: NT-proBNP (BNP-Adult 18+) 1060 pg/mL (<450); Troponin I < 0.012 ng/mL (0.01-0.034)
[2021-11-17 10:35] LABS: COVID19 -Nasal RAPID Negative (Negative)
[2021-11-17] MEDS: TET,DIPH,PERTUSS(ACELL),VAC/PF 0.5 ML SYRINGE IM (11:54)
[2021-11-17 12:20] LABS: Troponin I < 0.012 ng/mL (0.01-0.034)
== END 2021-11-17 12:52 | disposition home or self-care (01) ==
PROVIDERS: Emergency Provider Emergency Medicine; Family Provider Family Medicine; PCP Family Medicine
DX: R55 Syncope and collapse (principal); I65.21 Occlusion and stenosis of right carotid artery; S09.90XA Unspecified injury of head, initial encounter; R00.1 Bradycardia, unspecified; Z79.01 Long term (current) use of anticoagulants; Z23 Encounter for immunization
CPT/HCPCS: 36415; 70450; 70496; 70498; 71045; 80053; 82550; 83690; 83880; 84484; 85025; 85610; 85730; 87635; 90471; 93005; 93010; 99285; C9803; 90715; Q9967

== ENCOUNTER 2022-08-05 09:36 | Emergency (ER) | payer MEDICARE, SELFPAY ==
[2021-04-02 16:30] VITALS: BMI 25.3
[2022-08-05] VITALS (21 sets, daily range): BP systolic 154–214; BP diastolic 68–86; PULSE 54–78; RESP 10–24; TEMP 36.5; O2SAT 94–99; BMI 24.4
--- NOTE | 2022-08-05 10:14 | DI.RAD.S_ITS ---
PROCEDURE: XR CHEST 1V INDICATIONS: chest pain TECHNIQUE: One view of the chest was acquired. COMPARISON: [facility], CT, CT ANGIO HEAD AND NECK, 11/17/2021, 9:45. [facility], CR, XR CHEST 1V, 11/17/2021, 9:45. [facility], CR, XR CHEST 1V, 02/26/2021, 13:26. FINDINGS: Surgical changes and devices: None. Lungs and pleura: Low lung volumes. Bilateral lung opacities appears similar compared to November of 2021. No pleural effusions. No new dense consolidation. Mediastinum: Mediastinal contours appear normal. Heart size is normal. Bones and chest wall: No suspicious bony lesions. Overlying soft tissues appear unremarkable. IMPRESSION: Chronic scattered pulmonary opacities, particularly in the right lung, overall similar compared to November 2021. No new dense consolidation. No pleural effusions. Consider CT chest follow-up. Dictated by: Neo Juarez M.D. on 08/05/2022 at 11:02 Approved by: Neo Juarez M.D. on 08/05/2022 at 11:03
--- NOTE | 2022-08-05 10:16 | DI.RAD.S_ITS ---
PROCEDURE: XR HIP W PEL IF DONE LT 2V INDICATIONS: pain TECHNIQUE: 2 views of the hip were acquired. COMPARISON: None. FINDINGS: Bones: Mzhn-fo-xlkcyfnh bilateral hip degenerative changes. No displaced fracture or dislocation. Soft tissues: Above average fecal loading. IMPRESSION: Caxs-wt-clboanyw bilateral degenerative changes. If there is high concern for further derangement, consider MRI evaluation. No acute radiographic abnormality. Dictated by: Neo Juarez M.D. on 08/05/2022 at 11:04 Approved by: Neo Juarez M.D. on 08/05/2022 at 11:05
--- NOTE | 2022-08-05 10:17 | DI.CT.S_ITS ---
PROCEDURE: CT HEAD/BRAIN WO CON INDICATIONS: fall on thinners TECHNIQUE: Noncontrast 4.5 mm thick angled axial sections acquired from the foramen magnum to the vertex, with coronal and sagittal reformats. For radiation dose reduction, the following was used: automated exposure control, adjustment of mA and/or kV according to patient size. COMPARISON: [facility], CT, CT HEAD/BRAIN WO CON, 11/17/2021, 9:45. FINDINGS: Image quality: Good CSF spaces: Basal cisterns are patent. Lateral ventricles are symmetric. Volume: Vascular calcifications. Periventricular white matter disease is commonly seen with chronic microangiopathy. Volume loss is present. These findings are lcaa-jx-qktnnmka Brain: No intracranial hemorrhage. Soriano-white differentiation is grossly maintained. Craniofacial structures: No displaced fracture. Sinuses are clear. Orbits are intact. IMPRESSION: No acute intracranial abnormality. Dictated by: Neo Juarez M.D. on 08/05/2022 at 10:52 Approved by: Neo Juarez M.D. on 08/05/2022 at 10:53
--- NOTE | 2022-08-05 10:20 | DI.CT.S_ITS ---
PROCEDURE: CT CERVICAL SPINE WO CON INDICATIONS: fall on thinners TECHNIQUE: Noncontrast 3 mm thick sections acquired from the skull base to the T4 level. Sagittal and coronal reformats were then constructed. For radiation dose reduction, the following was used: automated exposure control, adjustment of mA and/or kV according to patient size. COMPARISON: [facility], CT, CT ANGIO HEAD AND NECK, 11/17/2021, 9:45. FINDINGS: Image quality: Good Bones: Arjo-ot-fbnxungp degenerative changes. Vertebral body heights are well maintained. No evidence of traumatic subluxation. Soft tissues: No prevertebral soft tissue swelling. No apical pneumothorax. Similar peripheral scarring and fibrotic changes, particularly on the right, in the lungs. IMPRESSION: Agbv-th-thvsxdkw degenerative changes No acute fracture or traumatic subluxation. If there is high concern for further derangement, consider MRI evaluation. Dictated by: Neo Juarez M.D. on 08/05/2022 at 10:54 Approved by: Neo Juarez M.D. on 08/05/2022 at 10:56
[2022-08-05 10:37] LABS: Add Manual Diff / Slide Review NO; Basophils Absolute Auto 0 /uL (0-100); Basophils Percent Auto 0.5 % (0-2); Eosinophils Absolute Auto 500 /uL (0-450); Eosinophils Percent Auto 5.7 % (2-4); Hematocrit 38.9 % (41-53); Hemoglobin 13.1 g/dL (13.5-17.5); Lymphocytes Absolute Auto 2400 /uL (1100-4500); Mean Corpuscular HGB Conc 33.7 % (30-36); Mean Corpuscular Hemoglobin 29.1 PG (26-34); Mean Corpuscular Volume 86.4 fL (80-100); Monocytes Absolute Auto 700 /uL (0-900); Monocytes Percent Auto 7.5 % (3-14); Neutrophils Absolute Auto 5300 /uL (1500-7000); Neutrophils Percent Auto 59.3 % (50-75); Platelet Count 171 X10^3/uL (150-400); Red Cell Distribution Width 14.2 % (11.6-14.8)
[2022-08-05 10:44] LABS: INR 1.2 (0.9-1.3); Prothrombin Time 13.5 SECONDS (10.1-12.7)
[2022-08-05 10:47] LABS: PTT Partial Thromboplastin Tim 31 SECONDS (26-36)
[2022-08-05 10:50] LABS: Alanine Aminotransferase 24 IU/L (<50); Albumin 4.2 g/dL (3.5-5.0); Albumin Globulin Ratio 1.5 (1.0-2.8); Alkaline Phosphatase 72 U/L (38-126); Aspartate Aminotransferase 40 IU/L (17-59); BUN Creatinine Ratio 15.8 (6-22); Bilirubin Total 0.6 mg/dL (0.2-1.3); Blood Urea Nitrogen 32 mg/dL (9-20); Calcium 9.3 mg/dL (8.4-10.2); Carbon Dioxide 24 mmol/L (22-32); Chloride 103 mmol/L (98-107); Creatine Kinase 48 U/L (55-170); Estimated Glomerular Filt Rate 32 mL/min (>60); Globulin 2.8 g/dL (1.7-4.1); Glucose 80 mg/dL (80-110); HEMOLYSIS < 15 (0-50); Lipase 197 U/L (23-300); Magnesium 2.2 mg/dL (1.6-2.3); Potassium 3.8 mmol/L (3.4-5.1); Sodium 135 mmol/L (137-145)
[2022-08-05 11:00] LABS: Troponin I < 0.012 ng/mL (0.01-0.034)
--- NOTE | 2022-08-05 12:45 | ED_ITS ---
HPI - Fall General Chief Complaint: Trauma Stated Complaint: lt leg pain; fell today and hit head; blood thinne Time Seen by Provider: 08/05/22 12:27 Source: patient and family Mode of arrival: Family Vehicle History of Present Illness HPI Narrative: This is an 86-year-old male with complaint of pulmonary emboli with factor 5 Leiden, on Eliquis, chronic kidney disease, hypertension, dyslipidemia, hypothyroidism and history of pituitary tumor with surgery x2 on desmopressin, who comes with complaint fall last Thursday over a week and a half ago patient states he was getting up from the toilet which is very low he had significant pain in his leg and back and then fell onto his hands and knees. He states he had been having some twinges in his back for the several days before this. He was able to get to the bedroom. Over the next few days he is had some slow improvement he has been walking sometimes without assistance but using a walker frequently. He still been having pain radiating from the left back down the leg. Denies numbness, tingling or weakness. He states the leg will sometimes give out but he describes it as being super painful and then giving out. Patient states no saddle anesthesia no bowel or bladder incontinence. No difficulty with retention. He denies fevers chills, cold cough or congestion no chest pain or shortness of breath. No other GI or urinary symptoms. Related Data Home Medications Medication Instructions Recorded Confirmed hydrocortisone 20 mg tablet 20 mg PO DAILY ##0 09/30/16 12/03/21 (Cortef) desmopressin 0.1 mg tablet 0.05 mg PO BEDTIME ##0 01/14/17 12/03/21 latanoprost 0.005 % eye drops 1 drp EYE-BOTH BEDTIME ##0 01/21/17 12/03/21 calcium carbonate 500 mg calcium 500 mg PO DAILY 07/05/18 12/03/21 (1,250 mg) tablet (Calcium 500) multivitamin 1 tab PO DAILY 07/05/18 12/03/21 valsartan 160 mg tablet 160 mg PO QPM 07/05/18 12/03/21 levothyroxine 75 mcg tablet 75 mcg PO DAILY 07/01/21 12/03/21 Previous Rx's Medication Instructions Recorded tamsulosin 0.4 mg capsule (Flomax) 0.4 mg PO DAILY #90 caps 03/05/22 apixaban 5 mg tablet (Eliquis) See Rx Instructions .Route 03/31/22 .COMPLEX #180 tabs atorvastatin 10 mg tablet See Rx Instructions .Route 05/29/22 .COMPLEX #90 tabs gabapentin 100 mg capsule 100 mg PO TID #60 caps 08/05/22 (Neurontin) valsartan 160 1 tab PO DAILY #30 tabs 08/05/22 mg-hydrochlorothiazide 25 mg tablet Allergies Allergy/AdvReac Type Severity Reaction Status Date / Time No Known Drug Allergies Allergy Unknown Verified 08/05/22 10:12 [NO KNOWN DRUG ALLERGIES] Review of Systems Review of Systems ROS Unobtainable: All systems reviewed & are unremarkable except as noted in HPI and below Patient History Medical History Acute kidney injury Cataract (11/30/14) Dehydration Elevated troponin Glaucoma (11/30/14) Hyperlipidemia (11/30/14) Hypertension (11/30/14) Pituitary adenoma (01/14/17) Syncope 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) Surgical History Status post appendectomy Family History Grandfather Mental health problem Grandmother Hypertension Mother Age: 108 Colon cancer Grandfather Heart disease Social History household members: spouse Smoking Status: Former smoker alcohol intake: current Smoking Status: Former smoker tobacco type: cigarettes alcohol intake frequency: a few times a week Substance Use Type: does not use Exam Narrative Exam Narrative: GEN: Patient appears in mild distress. HEAD: No evidence of trauma, no raccoon/Borjas sign. NECK: Nontender, painless range of motion, trachea midline Negative Nexus criteria, there has been line tenderness, distracting injury, altered mental status, neuro deficit, recent EtOH. EYES: PERRLA, EOMI ENT: External inspection normal, trachea is midline, Nares are clear, no septal hematoma, no dental or oral injury, airway is normal and with normal occlusion, No bony tenderness RESP: Chest is nontender and has symmetric movement, no ecchymosis, breath sounds are normal no crackles, wheezes or rales CVS: Heart sounds are normal, no murmur noted, No JVD. ABG/GI: Nontender, soft, normal bowel sounds, no distention, no organomegaly, pelvic rock is negative NEURO: Oriented AOx3, neuro is grossly intact, sensation and motor is normal all 4 extremities moving, cranial nerves II through XII are intact, GCS is 15 PSYCH: Normal mood and affect SKIN: Intact, warm and dry, no crepitus and without decubitus BACK: No CVA tenderness, no vertebral tenderness, no step-off's, no crepitus BACK: No cervical, thoracic or lumbar vertebral point tenderness. Patient has normal range of motion. Muscle strength is 5/5 in lower extremities, DTRs are 2/4 and lower extremities. Dorsalis pedis and tibialis pulses are 2+ and lower extremities. Sensation is intact in the lower extremities. EXT: Atraumatic, hips are nontender, no pedal edema, normal color and temperat ure, normal range of motion of extremities with normal tendon exam, 2+ pulses in all four extremities Initial Vital Signs Initial Vital Signs: Vital Signs Pulse Oximetry 97 08/05/22 09:[address] [place] [address] Head Rule Age greater or equal to 65 years: Yes Course Orders Ordered: ED Orders 08/05/22 10:06 EKG-12 Lead Routine 08/05/22 10:14 XR chest 1V Stat 08/05/22 10:16 XR hip w pel if done LT min 4V Stat 08/05/22 10:17 CT head/brain wo con Stat 08/05/22 10:20 CT cervical spine wo con Stat 08/05/22 10:25 Complete Blood Count AUTO DIFF Stat Comprehensive Metabolic Panel Stat Lipase Stat Magnesium Stat PTT Partial Thromboplastin Brando Stat Prothrombin Time INR Stat Troponin & CK Cardiac Panel Stat 08/05/22 13:09 CT lumbar spine wo con Stat CT pelvis wo con Stat Discontinued Medications Aspirin (Aspirin 81 Mg Chew Tab) 324 mg PO NOW ONE Stop: 08/05/22 10:15 Last Admin: 08/05/22 10:57 Dose: Not Given Documented By: AT Vital Signs Vital signs: Vital Signs - 8 hr 08/05/22 10:43 08/05/22 11:00 08/05/22 11:05 Pulse Rate 78 74 Respiratory Rate 17 21 Blood Pressure 178/80 H Pulse Oximetry 95 97 Oxygen Delivery Method 08/05/22 11:05 08/05/22 11:30 08/05/22 11:31 Pulse Rate 57 L 59 L Respiratory Rate 21 14 Blood Pressure 202/84 H Pulse Oximetry 99 99 Oxygen Delivery Method 08/05/22 11:31 08/05/22 12:00 08/05/22 12:01 Pulse Rate 58 L 60 59 L Respiratory Rate 10 L 24 16 Blood Pressure Pulse Oximetry 99 98 99 Oxygen Delivery Method Room Air 08/05/22 12:01 08/05/22 12:30 08/05/22 12:31 Pulse Rate 61 60 Respiratory Rate 21 14 Blood Pressure 204/86 H Pulse Oximetry 94 95 Oxygen Delivery Method 08/05/22 12:31 08/05/22 13:00 08/05/22 13:33 Pulse Rate 65 Respiratory Rate 22 Blood Pressure 192/79 H Pulse Oximetry 98 95 Oxygen Delivery Method 08/05/22 14:00 08/05/22 14:01 08/05/22 14:01 Pulse Rate 58 L 59 L Respiratory Rate 16 21 Blood Pressure 154/69 H Pulse Oximetry 98 98 Oxygen Delivery Method 08/05/22 14:30 08/05/22 14:31 08/05/22 14:31 Pulse Rate 57 L 54 L Respiratory Rate 24 24 Blood Pressure 184/78 H Pulse Oximetry 99 99 Oxygen Delivery Method Room Air 08/05/22 15:42 08/05/22 15:42 Pulse Rate 56 L Respiratory Rate Blood Pressure 157/68 H Pulse Oximetry 99 Oxygen Delivery Method Room Air MDM - Fall Lab Data 08/05/22 10:25 08/05/22 10:25 Labs: Lab Results 08/05/22 08/05/22 08/05/22 Range/Units 10:25 10:25 10:25 WBC 9.0 (4.5-11.0) X10^3/uL RBC 4.50 (4.5-5.9) X10^6/uL Hgb 13.1 L (13.5-17.5) g/dL Hct 38.9 L (41-53) % MCV 86.4 (80-100) fL MCH 29.1 (26-34) PG MCHC 33.7 (30-36) % RDW 14.2 (11.6-14.8) % Plt Count 171 (150-400) X10^3/uL Neut % (Auto) 59.3 (50-75) % Lymph % (Auto) 27.0 (25-40) % [place] % (Auto) 7.5 (3-14) % Eos % (Auto) 5.7 H (2-4) % Baso % (Auto) 0.5 (0-2) % Neut # (Auto) 5300 (4135-7172) /uL Lymph # (Auto) 2400 (8724-1708) /uL [place] # (Auto) 700 (0-900) /uL Eos # (Auto) 500 H (0-450) /uL Baso # (Auto) 0 (0-100) /uL PT 13.5 H (10.1-12.7) SECONDS INR 1.2 (0.9-1.3) APTT 31 (26-36) SECONDS Sodium 135 L (137-145) mmol/L Potassium 3.8 (3.4-5.1) mmol/L Chloride 103 (98-107) mmol/L Carbon Dioxide 24 (22-32) mmol/L BUN 32 H (9-20) mg/dL Creatinine 2.03 H (0.66-1.25) mg/dL Estimated GFR 32 L (>60) mL/min BUN/Creatinine Ratio 15.8 (6-22) Glucose 80 (80-110) mg/dL Calcium 9.3 (8.4-10.2) mg/dL Magnesium 2.2 (1.6-2.3) mg/dL Total Bilirubin 0.6 (0.2-1.3) mg/dL AST 40 (17-59) IU/L ALT 24 (<50) IU/L Alkaline Phosphatase 72 (38-126) U/L Total Creatine Kinase 48 L (55-170) U/L CK-MB (CK-2) TNP CK-MB (CK-2) Rel Index TNP Troponin I < 0.012 (0.01-0.034) ng/mL Total Protein 7.0 (6.3-8.2) g/dL Albumin 4.2 (3.5-5.0) g/dL Globulin 2.8 (1.7-4.1) g/dL Albumin/Globulin Ratio 1.5 (1.0-2.8) Lipase 197 (23-300) U/L Imaging Data CT scan - head: Radiologist's Impression: [address] [address] [address] Scan Report Signed Patient: Pablo Saez MR#: [id number] : 1935 Acct:[id number] Age/Sex: 86 / M Date of Service: 08/05/22 Loc: ED Accession Number: [id number] ?? Procedure: CT head/brain wo con Ordering Provider: Parris Mckay D.O. PROCEDURE:? CT HEAD/BRAIN WO CON ? INDICATIONS:? fall on thinners ? TECHNIQUE:? Noncontrast 4.5 mm thick angled axial sections acquired from the foramen magnum to the vertex, with coronal and sagittal reformats.? For radiation dose reduction, the following was used:? automated exposure control, adjustment of mA and/or kV according to patient size.? ? COMPARISON:? [facility], CT, CT HEAD/BRAIN WO CON, 11/17/2021, 9:45. ? FINDINGS:? Image quality:? Good ? CSF spaces: Basal cisterns are patent. Lateral ventricles are symmetric. Volume:? Vascular calcifications. Periventricular white matter disease is commonly seen with chronic microangiopathy. Volume loss is present. These findings are mi iw-ap-liguxpoy ? ? Brain: No intracranial hemorrhage. Soriano-white differentiation is grossly maintained. ? Craniofacial structures: No displaced fracture. Sinuses are clear. Orbits are intact. ? IMPRESSION:? No acute intracranial abnormality. ? ? Dictated by: Neo Juarez M.D. on 08/05/2022 at 10:52 ? ? Approved by: Neo Juarez M.D. on 08/05/2022 at 10:53?? CT - cervical spine: Radiologist's Impression: Close Cervical Spine CT (Signed) Neo Juarez - 08/05/[address] (Signed) Larry,Neo - 08/05/22 Hip X-Ray (Signed) Larry,Neo - 08/05/22 Chest X-Ray (Signed) Larry,Neo - 08/05/22 EKG Rpt. 11/17/[address] (Signed) Pablo Leiva - 11/17/21 Head/Neck CTA (Signed) Pablo Leiva - 11/17/21 Chest X-Ray (Signed) Pablo Leiva - 11/17/21 PFT Result 05/27/21 PFT Result 05/24/21 Echocardiogram Ultrasound (Signed) Bharathi Castano - 03/28/21 Chest CTA (Signed) Reyes Leiva - 03/07/21 EKG Rpt. 03/07/21 Chest X-Ray (Signed) Cruz Quinteros - 02/26/21 Chest X-Ray (Signed) Mervin Lazar - 11/27/20 Echocardiogram Ultrasound (Signed) Cortez Fishman - 03/15/20 Vascular Ultrasound (Signed) Reyes Leiva - 02/21/[address] (Signed) Shaheen Mullins - 05/15/19 Chest X-Ray (Signed) Shaheen Mullins - 05/15/19 Chest X-Ray (Signed) Taz Bowser - 03/31/19 Bone Densitometry 03/31/19 Abdomen/Pelvis CT (Signed) Ryne Boykin - 11/15/[address] (Signed) Alex Cali - 09/06/18 Chest X-Ray (Signed) Mervin Lazar - 08/20/[address] (Signed) Ernesto Daniels - 07/05/18 Chest X-Ray (Signed) Em Chavira - 07/05/18 Brain MRI (Signed) Adan Frausto - 02/15/18 Telemetry Strips 01/21/17 Launch?[place] [address] CT Scan Report Signed Patient: Pablo Saez MR#: [id number] : 1935 Acct:[id number] Age/Sex: 86 / M Date of Service: 08/05/22 Loc: ED Accession Number: [id number] ?? Procedure: CT cervical spine wo con Ordering Provider: Parris Mckay D.O. PROCEDURE:? CT CERVICAL SPINE WO CON ? INDICATIONS:? fall on thinners ? TECHNIQUE:? Noncontrast 3 mm thick sections acquired from the skull base to the T4 level.? Sagittal and coronal reformats were then constructed.? For radiation dose reduction, the following was used:? automated exposure control, adjustment of mA and/or kV according to patient size.? ? COMPARISON:? [facility], CT, CT ANGIO HEAD AND NECK, 11/17/2021, 9:45. ? FINDINGS:? Image quality:? Good ? Bones:? Ijny-zc-mffqfhql degenerative changes.? Vertebral body heights are well maintained.? No evidence of traumatic subluxation. ? Soft tissues:? No prevertebral soft tissue swelling.? No apical pneumothorax.? Similar peripheral scarring and fibrotic changes, particularly on the right, in the lungs. ? ? IMPRESSION:? Bdmd-gw-thvnegjb degenerative changes No acute fracture or traumatic subluxation.? If there is high concern for further derangement, consider MRI evaluation. ? Dictated by: Neo Juarez M.D. on 08/05/2022 at 10:54 ? ? Approved by: Neo Juarez M.D. on 08/05/2022 at 10:56?? Extremity x-ray #1: Radiologist's Impression: [address] [address] XRay Report Signed Patient: Pablo Saez MR#: [id number] : 1935 Acct:[id number] Age/Sex: 86 / M Date of Service: 08/05/22 Loc: ED Accession Number: [id number] ?? Procedure: XR hip w pel if done LT min 4V Ordering Provider: Parris Mckay D.O. PROCEDURE:? XR HIP W PEL IF DONE LT 2V ? INDICATIONS:? pain ? TECHNIQUE:? 2 views of the hip were acquired.? ? COMPARISON:? None. ? FINDINGS:? ? Bones:? Zjcn-cd-uaqbesog bilateral hip degenerative changes.? No displaced fracture or dislocation. ? Soft tissues:? Above average fecal loading. ? IMPRESSION:? Uprf-ex-xcrnggzv bilateral degenerative changes.? If there is high concern for further derangement, consider MRI evaluation.? No acute radiographic abnormality.? ? ? Dictated by: Neo Juarez M.D. on 08/05/2022 at 11:04 ? ? Approved by: Neo Juarez M.D. on 08/05/2022 at 11:05?? Chest x-ray: Radiologist's Impression: [address] [address] XRay Report Signed Patient: Pablo Saez MR#: [id number] : 1935 Acct:[id number] Age/Sex: 86 / M Date of Service: 08/05/22 Loc: ED Accession Number: [id number] ?? Procedure: XR chest 1V Ordering Provider: Parris Mckay D.O. PROCEDURE:? XR CHEST 1V ? INDICATIONS:? chest pain ? TECHNIQUE:? One view of the chest was acquired.? ? COMPARISON:? [facility], CT, CT ANGIO HEAD AND NECK, 11/17/2021, 9:45.? [facility], CR, XR CHEST 1V, 11/17/2021, 9:45.? [facility], CR, XR CHEST 1V, 02/26/2021, 13:26. ? FINDINGS:? ? Surgical changes and devices:? None.? ? Lungs and pleura:? Low lung volumes.? Bilateral lung opacities appears similar compared to November of 2021. No pleural effusions.? No new dense consolidation.? ? Mediastinum:? Mediastinal contours appear normal.? Heart size is normal.? ? Bones and chest wall:? No suspicious bony lesions.? Overlying soft tissues appear unremarkable.? ? IMPRESSION:? Chronic scattered pulmonary opacities, particularly in the right lung, overall similar compared to November 2021. No new dense consolidation.? No pleural effusions.? Consider CT chest follow-up.? ? ? Dictated by: Neo Juarez M.D. on 08/05/2022 at 11:02 ? ? Approved by: Neo Juarez M.D. on 08/05/2022 at 11:03?? pelvic CT: Radiologist's Impression: Close Lumbar Spine CT 08/05/[address] (Signed) Larry,Neo - 08/05/[address] (Signed) Larry,Neo - 08/05/[address] (Signed) Larry,Neo - 08/05/22 Hip X-Ray (Signed) Larry,Neo - 08/05/22 Chest X-Ray (Signed) Larry,Neo - 08/05/22 Launch?Image [address] [address] [address] Scan Report Signed Patient: Pablo Saez MR#: [id number] : 1935 Acct:[id number] Age/Sex: 86 / M Date of Service: 08/05/22 Loc: ED Accession Number: [id number] ?? Procedure: CT pelvis wo con Ordering Provider: Parris Mckay D.O. PROCEDURE:? CT PEL WO CON ? INDICATIONS:? back/left sided pain ? TECHNIQUE:? Noncontrast 3 mm axial sections acquired through the bony pelvis, with coronal and sagittal reformatting.? ? COMPARISON:? [facility], CR, XR HIP W PEL IF DONE LT 2V, 08/05/2022, 10:29. ? FINDINGS:? Image quality:? Good ? Bones:? No displaced fracture.? No dislocation.? Lumbar spine findings are separately dictated.? 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 ? Soft tissues:? Prominent rectal stool ball.? No gross abnormality in the intra- abdominal and intrapelvic structures, which are partially seen.? There are atherosclerotic calcifications in the vessels.? No pelvic hematoma identified. ? ? IMPRESSION:? No acute pelvic ring disruption.? No displaced fracture or dislocation.? Mqbu-lt-zkolwbhp bilateral hip arthrosis.? If there is high concern for further derangement, consider MRI evaluation. ? Lumbar spine findings are separately dictated.? ? ? Dictated by: Neo Juarez M.D. on 08/05/2022 at 14:31 ? ? Approved by: Neo Juarez M.D. on 08/05/2022 at 14:33?? Lspine CT: Radiologist's Impression: Close Lumbar Spine CT (Signed) Larry,Neo - 08/05/[address] (Signed) Larry,Neo - 08/05/[address] (Signed) Larry,Neo - 08/05/[address] (Signed) Larry,Neo - 08/05/22 Hip X-Ray (Signed) Larry,Neo - 08/05/22 Chest X-Ray (Signed) Larry,Neo 08/05/22 Launch?[address] [address] [address] Scan Report Signed Patient: Pablo Saez MR#: [id number] : 1935 Acct:[id number] Age/Sex: 86 / M Date of Service: 08/05/22 Loc: ED Accession Number: [id number] ?? Procedure: CT lumbar spine wo con Ordering Provider: Parris Mckay D.O. PROCEDURE:? CT LUMBAR SPINE WO CON ? INDICATIONS:? left leg pain causing falls, back pain ? TECHNIQUE:? Noncontrast 3 mm thick sections acquired from the T12 level to the sacrum.? Sagittal and coronal reformats were constructed.? For radiation dose reduction, the following was used:? automated exposure control.? ? COMPARISON:? [facility], CT, CT ABDOMEN PELVIS W CON, 11/15/2018, 10:30. ? FINDINGS:? Image quality:? Good ? Bones:? Mild multilevel degenerative changes, with mild disc space height loss, endplate Schmorl's nodes, osteophytes, and facet arthropathy.? No acute vertebral body height loss.? No traumatic subluxation. ? On CT evaluation, there may be some mild neural foraminal narrowing at L4-L5 and L5-S1.? No high-grade stenosis.? There may also be mild thecal sac narrowing in the low er lumbar spine.? There is a suspected disc extrusion or protrusion at L4-L5. ? Soft tissues:? Atherosclerotic calcifications.? No retroperitoneal hematoma.? No paravertebral fluid collection.? Partially seen bilateral lung base suspected atelectasis/scarring.? Relatively atrophic right kidney compared to the left. ? ? IMPRESSION:? Mild degenerative changes by osseous detail.? No traumatic subluxa tion or acute fracture.? ? Suspected protrusions/extrusion disc disease is most prominent at L4-L5. Consider MRI evaluation for further detail in the setting of possible radiculopathy.? ? ? Dictated by: Neo Juarez M.D. on 08/05/2022 at 14:33 ? ? Approved by: Neo Juarez M.D. on 08/05/2022 at 14:36?? ECG Data Attestation: I personally reviewed and interpreted this ECG as follows: Prior ECG tracings: available for review Interpretation: This patient has frequent PVCs in almost a bigeminal pattern rate of 65, QRS is 78 QTC of 447. Nonspecific change. Patient has prior from 11/17/2021 which has somewhat similar appearance. MDM Narrative Medical decision making narrative: 86-year-old male with back pain radiating down his left leg which has been present for over a week. Patient states his 1st fall was actually prompted by the pain. Patient has had another fall since then and struck his head today. No loss of consciousness. Is on apixaban so head CT C-spine were ordered and are negative. Left hip with pelvis shows arthritic changes but no fracture. Patient has some chronic scattered opacities but no effusion or fracture. Patient's labs show creatinine 2.03 which appears similar to prior from November of 2021. No other significant changes to troponin, electrolytes and hemoglobin today is 13 improved from 11 back in November. Normal platelets and white count. Discussed with patient with his recurrent falls CT L-spine to evaluate for any fracture and this will also give some information regarding spinal canal and nerves. No red flag symptoms currently for MRI patient has g ood strength on examination, normal sensation without any saddle anesthesia or other red flags. False negative, CT L-spine shows possible changes consistent with disc bulge. No fracture, patient and I reviewed findings he was able to ambulate with walker without much issue has not required any pain medications here. Discharged home with Neurontin, follow-up with PMR, likely felt for MRI primary care, PT and further workup with return precautions. 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 Thirty day prescription was sent. Discharge Plan Departure Patient Disposition: Home Clinical Impression: Left lumbar radiculopathy Instructions: DI for Lumbar Radiculopathy Activity Restrictions/Additional Instructions: Please follow-up with your physician, your imaging shows changes consistent with possible bulge of the discs in her back which are likely pushing on the nerves and causing your pain. It may be helpful to follow up with Dr. Antoine's from physiatry, PT is also often helpful. You can call to set up follow-up for further evaluation. You can take Tylenol up to a 1000 mg every 6 hours as needed. You may take Neurontin 1 tablet every 8 hours as needed for pain. This medication can be titrated upwards by her physician as needed. It is most helpful when taking it regularly. There is also a prescription to refill your valsartan/HCTZ to take 1 tablet daily. Prescription sent to [facility] in [place]. Please return for rapidly worsening symptoms, new weakness, loss of sensation, loss of bowel or bladder control, inability to lift or move your leg or other new or concerning changes. Prescriptions: New gabapentin [Neurontin] 100 mg capsule 100 mg PO TID Qty: 60 0RF valsartan-hydrochlorothiazide 160-25 mg tablet 1 tab PO DAILY Qty: 30 0RF No Action levothyroxine 75 mcg tablet 75 mcg PO DAILY hydrocortisone [Cortef] 20 MG tablet 20 mg PO DAILY Qty: 0 desmopressin 0.1 MG tablet 0.05 mg PO BEDTIME Qty: 0 latanoprost 0.005 % drops 1 drp EYE-BOTH BEDTIME Qty: 0 tamsulosin [Flomax] 0.4 mg capsule 0.4 mg PO DAILY Qty: 90 1RF Eliquis 5 mg tablet See Rx Instructions .ROUTE .COMPLEX Qty: 180 1RF Dose Instruction: TAKE 1 TABLET(5 MG) BY MOUTH TWICE DAILY Rx Instructions: TAKE 1 TABLET(5 MG) BY MOUTH TWICE DAILY atorvastatin 10 mg tablet See Rx Instructions .ROUTE .COMPLEX Qty: 90 1RF Dose Instruction: TAKE ONE TABLET BY MOUTH EVERY IN THE EVENING Rx Instructions: TAKE ONE TABLET BY MOUTH EVERY IN THE EVENING valsartan 160 mg tablet 160 mg PO QPM calcium carbonate [Calcium 500] 500 mg calcium (1,250 mg) Tablet 500 mg PO DAILY Rx Instructions: 4 hours from Levothyroxine unknown dose multivitamin Tablet 1 tab PO DAILY Referrals: Cristofer Antoine DO [Physician] - Reyes Beckford MD [Primary Care Provider] - Stand Alone Forms: Patient Portal/API
--- NOTE | 2022-08-05 13:09 | DI.CT.S_ITS ---
PROCEDURE: CT LUMBAR SPINE WO CON INDICATIONS: left leg pain causing falls, back pain TECHNIQUE: Noncontrast 3 mm thick sections acquired from the T12 level to the sacrum. Sagittal and coronal reformats were constructed. For radiation dose reduction, the following was used: automated exposure control. COMPARISON: [facility], CT, CT ABDOMEN PELVIS W CON, 11/15/2018, 10:30. FINDINGS: Image quality: Good Bones: Mild multilevel degenerative changes, with mild disc space height loss, endplate Schmorl's nodes, osteophytes, and facet arthropathy. No acute vertebral body height loss. No traumatic subluxation. On CT evaluation, there may be some mild neural foraminal narrowing at L4-L5 and L5-S1. No high-grade stenosis. There may also be mild thecal sac narrowing in the lower lumbar spine. There is a suspected disc extrusion or protrusion at L4-L5. Soft tissues: Atherosclerotic calcifications. No retroperitoneal hematoma. No paravertebral fluid collection. Partially seen bilateral lung base suspected atelectasis/scarring. Relatively atrophic right kidney compared to the left. IMPRESSION: Mild degenerative changes by osseous detail. No traumatic subluxation or acute fracture. Suspected protrusions/extrusion disc disease is most prominent at L4-L5. Consider MRI evaluation for further detail in the setting of possible radiculopathy. Dictated by: Neo Juarez M.D. on 08/05/2022 at 14:33 Approved by: Neo Juarez M.D. on 08/05/2022 at 14:36
--- NOTE | 2022-08-05 13:09 | DI.CT.S_ITS ---
PROCEDURE: CT PEL WO CON INDICATIONS: back/left sided pain TECHNIQUE: Noncontrast 3 mm axial sections acquired through the bony pelvis, with coronal and sagittal reformatting. COMPARISON: [facility], CR, XR HIP W PEL IF DONE LT 2V, 08/05/2022, 10:29. FINDINGS: Image quality: Good Bones: No displaced fracture. No dislocation. Lumbar spine findings are separately dictated. 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 Soft tissues: Prominent rectal stool ball. No gross abnormality in the intra-abdominal and intrapelvic structures, which are partially seen. There are atherosclerotic calcifications in the vessels. No pelvic hematoma identified. IMPRESSION: No acute pelvic ring disruption. No displaced fracture or dislocation. [id number] bilateral hip arthrosis. If there is high concern for further derangement, consider MRI evaluation. Lumbar spine findings are separately dictated. Dictated by: Neo Juarez M.D. on 08/05/2022 at 14:31 Approved by: Neo Juarez M.D. on 08/05/2022 at 14:33
== END 2022-08-05 15:44 | disposition home or self-care (01) ==
PROVIDERS: Emergency Provider Emergency Medicine; Family Provider Family Medicine; PCP Family Medicine
DX: M54.16 Radiculopathy, lumbar region (principal); R07.9 Chest pain, unspecified; M79.605 Pain in left leg; Z79.01 Long term (current) use of anticoagulants; W18.30XA Fall on same level, unspecified, initial encounter
CPT/HCPCS: 36415; 70450; 71045; 72125; 72131; 72192; 73503; 80053; 82550; 83690; 83735; 84484; 85025; 85610; 85730; 93005; 93010; 99284

== ENCOUNTER → 2022-08-21 15:38 | Outpatient (CLI) | payer MEDICARE, SELFPAY ==
[2021-04-02 16:30] VITALS: BMI 25.3
--- NOTE | 2022-08-21 15:39 | DI.MRI.S_ITS ---
PROCEDURE: MR LUMBAR SPINE WO CON INDICATIONS: LBP w/radicul LLE to ankle; no relief w/meds or exercise TECHNIQUE: Noncontrast sagittal T1 spin echo and T2 fast echo, sagittal STIR, and T2 fast spin echo through the lumbar spine. In cases with scoliosis, additional coronal T2 fast spin echo may be performed. COMPARISON: [facility], CT, CT LUMBAR SPINE WO CON, 08/05/2022, 13:30. FINDINGS: Image quality: Excellent. Alignment and Curvature: There is normal bony alignment. Mild levocurvature centered at L3-L4. Bone Marrow: Marrow is of normal overall signal. No acute vertebral body compression fractures. Spinal Cord: Conus medullaris terminates at the L1 level. Visualized cord demonstrates normal signal and size. Paraspinous Soft Tissues: No paravertebral masses. T12-L1: No canal stenosis or foraminal stenosis. L1-L2: Mild disc bulge. Facet hypertrophy. No canal stenosis or foraminal stenosis. L2-L3: Disc bulge. Facet hypertrophy. No canal stenosis or foraminal stenosis. L3-L4: Disc bulge. Facet hypertrophy. No canal stenosis or foraminal stenosis. L4-L5: There is a relatively acute left paracentral disc extrusion with increased signal present within it. The extrusion measures 1.6 x 1.5 x 0.7 cm. There is resultant severe canal stenosis and left lateral recess stenosis with impingement on multiple left-sided nerve root structures. There is underlying bilateral facet arthropathy. At the level of the disc itself, there is moderate canal stenosis. There is [id number] bilateral foraminal narrowing. L5-S1: Disc bulge. Facet and ligament hypertrophy. No canal stenosis or foraminal stenosis. IMPRESSION: 1. A relatively acute left paracentral disc extrusion at L4-L5 results in severe canal stenosis and left lateral recess stenosis with impingement on multiple left-sided nerve root structures. This occurs below the exiting left L4 nerve root. 2. Multilevel facet arthropathy. Dictated by: Mo Voss M.D. on 08/21/2022 at 17:23 Approved by: Mo Voss M.D. on 08/21/2022 at 17:28
== END ==
PROVIDERS: Family Provider Family Medicine; PCP Family Medicine; Referring Provider Physician Assistant; Visit Provider Physician Assistant
DX: M48.061 Spinal stenosis, lumbar region without neurogenic claudication (principal); M47.26 Other spondylosis with radiculopathy, lumbar region; M47.27 Other spondylosis with radiculopathy, lumbosacral region; M51.16 Intervertebral disc disorders with radiculopathy, lumbar region; M51.17 Intervertebral disc disorders with radiculopathy, lumbosacral region
CPT/HCPCS: 72148

== ENCOUNTER → 2022-12-16 08:16 | Outpatient (CLI) | payer OTHER, MEDICARE, SELFPAY ==
[2021-04-02 16:30] VITALS: BMI 25.3
[2022-12-16 10:42] LABS: BUN Creatinine Ratio 14.6 (6-22); Blood Urea Nitrogen 31 mg/dL (9-20); Calcium 9.4 mg/dL (8.4-10.2); Carbon Dioxide 29 mmol/L (22-32); Chloride 103 mmol/L (98-107); Estimated Glomerular Filt Rate 30 mL/min (>60); Glucose 75 mg/dL (80-110); HEMOLYSIS < 15 (0-50); Potassium 4.3 mmol/L (3.4-5.1); Sodium 136 mmol/L (137-145)
[2022-12-16 10:51] LABS: Prolactin 9.4 ng/mL (3.7-17.9)
[2022-12-16 11:02] LABS: TSH w/ Reflex to FT4 0.02 uIU/mL (0.47-4.68)
[2022-12-16 11:08] LABS: Cortisol Random 1.13 ug/dL
[2022-12-16 11:38] LABS: Free T4, Direct Thyroxine 1.33 ng/dL (0.78-2.19)
[2022-12-18 07:07] LABS: Adrenocorticotropic Hormone 9.8 pg/mL (7.2-63.3)
== END ==
PROVIDERS: Family Provider Family Medicine; PCP Family Medicine; Referring Provider Nurse Practitioner; Visit Provider Nurse Practitioner
DX: E27.40 Unspecified adrenocortical insufficiency (principal); D35.2 Benign neoplasm of pituitary gland; E23.2 Diabetes insipidus; E03.8 Other specified hypothyroidism; E03.9 Hypothyroidism, unspecified; I10 Essential (primary) hypertension
CPT/HCPCS: 36415; 80048; 82024; 82533; 84146; 84439; 84443

== ENCOUNTER → 2022-12-19 12:53 | Outpatient (CLI) | payer OTHER, SELFPAY ==
[2021-04-02 16:30] VITALS: BMI 25.3
--- NOTE | 2022-12-19 | DI.MRI.S_ITS ---
PROCEDURE: MR BRAIN (PITUITARY) WWO CON INDICATIONS: Benign neoplasm of pituitary gland TECHNIQUE: Noncontrast sagittal and axial FLAIR, axial gradient echo, axial diffusion and ADC through the brain. Thin-slice sagittal and coronal T1 spin echo, coronal T2 fast spin echo through the pituitary. After the administration contrast, optional dynamic coronal T1 spin echo, thin-slice coronal and sagittal T1 spin echo images through the pituitary fossa; axial and coronal and sagittal T1 spin echo with fat saturation through the brain. COMPARISON: Located Within [facility], MR, MR HEAD/BRAIN WO CON, 02/15/2018, 7:07. Outside Facility, RG, MRI HEAD W/O CONTRAST, 09/22/2016, 18:38. Outside Facility, RG, MRI HEAD W/O CONTRAST, 02/10/2017, 13:29. Located Within [facility], MR, BRAIN (PITUITARY) W&WO CONTRAS, 08/26/2016, 7:46. FINDINGS: Image quality: Excellent. Pituitary Gland: Asymmetric on the left within the pituitary fossa, there is enhancing material that measures 17 x 14 mm in greatest axial dimension, with a craniocaudal extent of 11 mm. The appearance is similar to the 2018 examination. The pituitary stalk is midline. The optic chiasm and ventral forebrain are within normal limits, without mass effect. CSF Spaces: Ventricles are normal in size and shape. Basal cisterns are patent. No extra-axial fluid collections. Brain: No intracranial bleeds or mass effects. No abnormal intracranial enhancement. Soriano-white matter interface is intact. Diffusion weighted images demonstrate no acute ischemic insults. Brainstem is normal. Normal intravascular flow voids are present. Note is made of age-appropriate brain parenchymal volume loss and chronic small vessel ischemic changes. Skull and face: Calvarial marrow is normal in signal. Orbits appear normal. Sinuses: Sinuses and mastoids are clear. IMPRESSION: Enhancing material seen along the left aspect of the pituitary fossa, which appears similar to 2018. 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 No mass effect is now seen upon the optic chiasm. No masses or abnormal enhancement can be seen elsewhere. Dictated by: Ryne Boykin M.D. on 12/19/2022 at 14:09 Approved by: Ryne Boykin M.D. on 12/19/2022 at 14:16
== END ==
PROVIDERS: Family Provider Family Medicine; PCP Family Medicine; Referring Provider Nurse Practitioner; Visit Provider Nurse Practitioner
DX: D35.2 Benign neoplasm of pituitary gland (principal)
CPT/HCPCS: 70553; A9579

== ENCOUNTER → 2022-12-29 10:25 | Outpatient (CLI) | payer OTHER, SELFPAY ==
[2021-04-02 16:30] VITALS: BMI 25.3
--- NOTE | 2022-12-29 10:26 | DI.ECHO.S_ITS ---
[facility]---------+ [facility] +---------+ : : [address] : : : : [id number] : : : : Phone: [phone]+ Echocardiogram Report + + :Name: KANG BRAXTON Study Date: 12/29/2022 Height: 73 in : :[facility] ReadingLocation: Weight: 178 lb : : Gender: Male BSA: 2.0 m2 : :: 1935 Age: 87 yrs BP: 144/62 mmHg: :Reason For Study: Syncope and Collapse : :Ordering Physician: LORENA, : :NURY Performed By: Neha Golden : :Referring: NURY CARRILLO : + + Interpretation Summary Technically difficult study. Normal left ventricle size with ejection fraction 60-65%. No significant valvular abnormality. Procedure: A two-dimensional transthoracic echocardiogram with color flow and Doppler was performed. The study quality was technically difficult. Comparison is made with the echocardiogram of 03/28/2021. Left Ventricle: The left ventricle is normal in size. The ejection fraction is estimated to be 60-65%. There are no obvious focal wall motion abnormalities noted but poor endocardial definition reduces the sensitivity for the detection of such. Diastolic function could not be accurately assessed due to contradictory data. Right Ventricle: The right ventricle is normal in size and function. Atria: The left atrial size is normal. Right atrial size is normal. There is no Doppler evidence for an interatrial shunt. Mitral Valve: The mitral valve leaflets appear borderline thickened, but open well. There is no mitral valve stenosis. There is trace mitral regurgitation. Aortic Valve: The aortic valve is not well visualized. There is no aortic valve stenosis. There is trace aortic regurgitation. Tricuspid Valve: The tricuspid valve is normal. There is no tricuspid stenosis. There is trace tricuspid regurgitation. Pulmonary artery pressures cannot be estimated because of the lack of a measurable TR jet velocity. Pulmonic Valve: The pulmonic valve is not well visualized. There is no pulmonic valvular stenosis. There is trace pulmonic regurgitation. Great Vessels: The aortic root is normal size. The ascending aorta is normal in size. The pulmonary artery is normal size. The IVC is dilated (diameter is greater than 2.1 cm) yet it collapses greater than 50% with a sniff. This suggests a right atrial pressure of 8 mm Hg. Pericardium/ Pleura There is no pericardial effusion. There is no pleural effusion. MMode/2D Measurements & Calculations LVIDd: 4.1 cm LVOT diam: 2.0 cm LVIDs: 2.8 cm Ao root diam: 3.3 cm FS: 31.7 % asc Aorta Diam: 3.3 cm IVSd: 0.90 cm LVPWd: 1.0 cm LV aguilera. diameter/BSA (cm/m^2): 2.0 LV sys. diameter/BSA (cm/m^2): 1.4 LA A2 area: 17.3 cm2 RA long axis: 5.1 cm LA A4 area: 10.7 cm2 RA area: 15.2 cm2 LA length (vol): 5.6 cm RA vol: 38.8 ml LA vol: 28.1 ml RA : 18.9 ml/m2 LA vol index: 13.7 ml/m2 RVD1 (basal): 3.4 cm LVLs ap4: 7.1 cm LVLd ap2: 7.8 cm TAPSE_phl: 2.5 cm LVLs ap2: 6.3 cm Electronically signed by: Sandhya Weaver on Reading Physician:12/29/2022 03:16 PM
== END ==
PROVIDERS: Family Provider Family Medicine; PCP Family Medicine; Referring Provider Family Medicine; Visit Provider Family Medicine
DX: R55 Syncope and collapse (principal)
CPT/HCPCS: 93306

== ENCOUNTER → 2023-01-07 09:43 | Outpatient (CLI) | payer OTHER, SELFPAY ==
[2021-04-02 16:30] VITALS: BMI 25.3
== END ==
PROVIDERS: Family Provider Family Medicine; PCP Family Medicine; Referring Provider Family Medicine; Visit Provider Family Medicine
DX: R55 Syncope and collapse (principal)
CPT/HCPCS: 93246

== ENCOUNTER → 2023-04-27 10:42 | Outpatient (CLI) | payer OTHER, SELFPAY ==
[2021-04-02 16:30] VITALS: BMI 25.3
[2023-04-27 12:44] LABS: TSH w/ Reflex to FT4 < 0.02 uIU/mL (0.47-4.68)
[2023-04-27 17:29] LABS: Free T4, Direct Thyroxine 1.68 ng/dL (0.78-2.19)
== END ==
PROVIDERS: Family Provider Family Medicine; PCP Family Medicine; Referring Provider Family Medicine; Visit Provider Family Medicine
DX: E03.9 Hypothyroidism, unspecified (principal)
CPT/HCPCS: 36415; 84439; 84443

== ENCOUNTER 2023-08-05 17:56 | Inpatient (IN) | payer MEDICARE, SELFPAY ==
[2021-04-02 16:30] VITALS: BMI 25.3
[2023-08-05] VITALS (68 sets, daily range): BP systolic 59–207; BP diastolic 28–94; PULSE 62–109; RESP 15–35; TEMP 36.9–38.2; O2SAT 90–99; BMI 24.1; BMI 23.1
--- NOTE | 2023-08-05 18:02 | DI.RAD.S_ITS ---
PROCEDURE: XR CHEST 1V INDICATIONS: fever, tired TECHNIQUE: One view of the chest was acquired. COMPARISON: [facility], LOS, XR CHEST 1V, 08/05/2022, 10:29. [facility], CR, XR CHEST 1V, 11/17/2021, 9:45. FINDINGS: Surgical changes and devices: None. Lungs and pleura: Subtle opacity in the right upper lobe which appears chronic. No pneumothorax. Small right pleural effusion. Mediastinum: Mediastinal contours appear normal. Heart size is normal. Bones and chest wall: No suspicious bony lesions. Overlying soft tissues appear unremarkable. IMPRESSION: Small right pleural effusion. Subtle opacity in the right upper lobe which appears chronic. Dictated by: Cruz Quinteros M.D. on 08/05/2023 at 19:25 Approved by: Cruz Quinteros M.D. on 08/05/2023 at 19:26
--- NOTE | 2023-08-05 18:02 | DI.CT.S_ITS ---
PROCEDURE: CT HEAD/BRAIN WO CON INDICATIONS: fever, lethargic TECHNIQUE: Noncontrast 4.5 mm thick angled axial sections acquired from the foramen magnum to the vertex, with coronal and sagittal reformats. For radiation dose reduction, the following was used: automated exposure control, adjustment of mA and/or kV according to patient size. COMPARISON: [facility], CT, CT HEAD/BRAIN WO CON, 08/05/2022, 10:28. FINDINGS: Image quality: Diagnostic. CSF spaces: Basal cisterns are patent. No extra-axial fluid collections. Ventricles are prominent in size and shape, unchanged. Brain: No midline shift. No intracranial masses or hemorrhage. No area of hypodensity in a large vascular distribution to suggest acute infarction. Periventricular hypodensity consistent with chronic microvascular ischemic change. Age-related parenchymal loss. Skull and face: Calvarium and visualized facial bones are intact, without suspicious lesions. Sinuses: Small air-fluid level in the left maxillary sinus. Mucosal thickening in the ethmoid air cells. IMPRESSION: No acute intracranial pathology. Dictated by: Cruz Quinteros M.D. on 08/05/2023 at 18:32 Approved by: Cruz Quinteros M.D. on 08/05/2023 at 18:35
[2023-08-05 18:15] LABS: Add Manual Diff / Slide Review NO; Basophils Absolute Auto 0 /uL (0-100); Basophils Percent Auto 0.6 % (0-2); Eosinophils Absolute Auto 0 /uL (0-450); Eosinophils Percent Auto 0.5 % (2-4); Hematocrit 43.3 % (41-53); Hemoglobin 14.4 g/dL (13.5-17.5); Lymphocytes Absolute Auto 2100 /uL (1100-4500); Lymphocytes Percent Auto 24.9 % (25-40); Mean Corpuscular HGB Conc 33.3 % (30-36); Mean Corpuscular Hemoglobin 29.3 PG (26-34); Mean Corpuscular Volume 88.1 fL (80-100); Monocytes Absolute Auto 800 /uL (0-900); Monocytes Percent Auto 9.6 % (3-14); Neutrophils Absolute Auto 5400 /uL (1500-7000); Neutrophils Percent Auto 64.4 % (50-75); Platelet Count 145 X10^3/uL (150-400); Red Blood Cell Count 4.92 X10^6/uL (4.5-5.9); Red Cell Distribution Width 14.8 % (11.6-14.8); White Blood Cell Count 8.4 X10^3/uL (4.5-11.0)
--- NOTE | 2023-08-05 18:23 | ED.GENADULT ---
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 Patient can tell me his name, he believes it is 2013. He can give some information but has difficulty giving majority of info. He is alert and follows commands. Patient had a fever of 103 F by EMS was found in his bed has been incontinent of urine. They has been contacted his family could not reach him since yesterday and found him in bed. Patient denies any headaches, no neck pain he denies any chest pain or shortness of breath, denies any cough cold congestion symptoms. No nausea or vomiting, denies any diarrhea or constipation. He denies any urinary issues. Denies any numbness tingling or weakness in his extremities. Patient does not have any known drug allergies. He does present with his healthcare/[id number] that notes that he is DNR/DNI with limited interventions. Related Data Home Medications Medication Instructions Recorded Confirmed hydrocortisone 20 mg tablet 20 mg PO DAILY ##0 09/30/16 08/05/23 (Cortef) desmopressin 0.1 mg tablet 0.05 mg PO BEDTIME ##0 01/14/17 08/05/23 latanoprost 0.005 % eye drops 1 drp EYE-BOTH BEDTIME ##0 01/21/17 08/05/23 calcium carbonate 500 mg calcium 500 mg PO DAILY 07/05/18 08/05/23 (1,250 mg) tablet (Calcium 500) multivitamin 1 tab PO DAILY 07/05/18 08/05/23 valsartan 160 mg tablet 160 mg PO DAILY 12/22/22 08/05/23 Previous Rx's Medication Instructions Recorded apixaban 2.5 mg tablet 2.5 mg PO BID #60 tabs 10/27/22 atorvastatin 10 mg tablet 10 mg PO QPM #90 tabs 11/20/22 tamsulosin 0.4 mg capsule (Flomax) 0.4 mg PO DAILY #90 caps 02/24/23 levothyroxine 50 mcg tablet 50 mcg PO DAILY #60 tabs 03/04/23 Allergies Allergy/AdvReac Type Severity Reaction Status Date / Time No Known Drug Allergies Allergy Unknown Verified 04/27/23 10:11 [NO KNOWN DRUG ALLERGIES] Review of Systems <Parris Mckay DO - Last Filed: 08/06/23 10:44> Review of Systems ROS Unobtainable: All systems reviewed & are unremarkable except as noted in HPI and below Patient History <Parris Mckay DO - Last Filed: 08/06/23 10:44> Medical History Pituitary adenoma (01/14/17) Pulmonary embolism 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 Elevated troponin Acute kidney injury Dehydration Thromboembolism of proximal vein of left lower extremity (05/07/16) Hypertension (11/30/14) Hyperlipidemia (11/30/14) Glaucoma (11/30/14) Cataract (11/30/14) Syncope Surgical History Status post appendectomy Family History Grandfather Mental health problem Grandmother Hypertension Mother Age: 109 Colon cancer Grandfather Heart disease Social History household members: none Smoking Status: Former smoker alcohol intake: current Smoking Status: Former smoker tobacco type: cigarettes alcohol intake frequency: a few times a week Substance Use Type: does not use Exam <Parris Mckay DO - Last Filed: 08/06/23 10:44> Narrative Exam Narrative: GEN: Elderly appearing male, alert and oriented to self, patient appears to be in mild distress. HEENT: Atraumatic, pupils are equal round reactive to light, patient has some slight erythema of the periorbital eyes bilaterally, some mild conjunctival injection, no discharge, extraocular movements are intact, nares are clear, TMs are clear with no fluid, there is no conjunctival pallor. Throat is clear without any exudates, erythema, tonsillar enlargement or uvular deviation, no facial droop. HEART: Regular rate and rhythm without murmur, clicks, rubs. Pulses are equal in upper and lower extremities LUNGS:Lungs clear to auscultation, no wheezes, rales, crackles, chest moves symmetrically ABD:bowel sounds normal, soft, non-tender, no guarding, rebound, rigidity, no masses noted, no hepatosplenomegaly :No CVA tenderness MSCL: Non-tender, no muscle atrophy, muscles strength 5/5 upper and lower extremities, no drift bilateral upper and lower extremities on examination. Full range of motion. NEURO:CN 2-12 intact, sensation normal Initial Vital Signs Initial Vital Signs: Vital Signs Pulse Rate 94 H 08/05/23 18:01 Respiratory Rate 24 08/05/23 18:01 Blood Pressure 201/94 H 08/05/23 18:01 Pulse Oximetry 96 08/05/23 18:01 <Pritesh Jansen, DO - Last Filed: 08/05/23 23:23> Initial Vital Signs Initial Vital Signs: Vital Signs Pulse Rate 94 H 08/05/23 18:01 Respiratory Rate 24 08/05/23 18:01 Blood Pressure 201/94 H 08/05/23 18:01 Pulse Oximetry 96 08/05/23 18:01 Course <Parris Mckay, DO - Last Filed: 08/06/23 10:44> Orders Ordered: Acetaminophen (Acetaminophen 325 Mg Tablet) 650 mg PO Q6H PRN PRN Reason: Fever/Mild Pain (1-3) Apixaban (Apixaban 5 Mg Tablet) 2.5 mg PO BID [facility] Last Admin: 08/06/23 08:07 Dose: 2.5 mg Documented By: LM Atorvastatin Calcium (Atorvastatin 20 Mg Tablet) 10 mg PO BEDTIME NATALEE Calcium Carbonate (Calcium Carbonate 500 Mg Tab) 1,000 mg PO Q4HR PRN PRN Reason: Dyspepsia Hydrocortisone (Hydrocortisone 100 Mg/2 Ml Vial) 50 mg IV Q12HR NATALEE Sodium Chloride (Normal Saline 0.9%) 1,000 mls @ 100 mls/hr IV CONT [facility] Last Infusion: 08/05/23 23:31 Dose: Infused Documented By: Infusion: 08/05/23 22:00 Dose: 100 mls/hr Documented By: Infusion: 08/05/23 20:46 Dose: 0 mls/hr Documented By: Admin: 08/05/23 20:10 Dose: 100 mls/hr Documented By: FRANCES Sodium Chloride (Normal Saline 0.45%) 1,000 mls @ 100 mls/hr IV CONT [facility] Last Admin: 08/06/23 08:06 Dose: 100 mls/hr Documented By: Infusion: 08/06/23 08:06 Dose: Infused Documented By: Admin: 08/05/23 23:39 Dose: 100 mls/hr Documented By: CAM Ceftriaxone Sodium 1,000 mg/ (Sodium Chloride) 100 mls @ 200 mls/hr IV Q24H [facility] Last Infusion: 08/06/23 10:15 Dose: Infused Documented By: Admin: 08/06/23 08:00 Dose: 200 mls/hr Documented By: LM Levothyroxine Sodium (Levothyroxine 50 Mcg Tablet) 50 mcg PO DAILY [facility] Last Admin: 08/06/23 08:16 Dose: 50 mcg Documented By: LM Metoprolol Tartrate (Metoprolol Ir 25 Mg Tablet) 25 mg PO BID [facility] Last Admin: 08/06/23 10:18 Dose: 25 mg Documented By: LM Multivitamins (Multivitamin 1 Tablet) 1 tab PO DAILY [facility] Last Admin: 08/06/23 08:10 Dose: 1 tab Documented By: LM Nf - Desmopressin 0. (1 Mg Tablet) 0.05 mg PO BEDTIME [facility] Ondansetron HCl (Ondansetron 4 Mg/2 Ml Inj) 4 mg IV Q8HR PRN PRN Reason: Nausea And Vomiting Tamsulosin HCl (Tamsulosin 0.4 Mg Capsule) 0.4 mg PO DAILY [facility] Last Admin: 08/06/23 08:07 Dose: 0.4 mg Documented By: LM Valsartan (Valsartan 80 Mg Tablet) 160 mg PO DAILY [facility] Last Admin: 08/06/23 08:10 Dose: 160 mg Documented By: LM Discontinued Medications Acetaminophen (Acetaminophen 325 Mg Tablet) 975 mg PO NOW ONE Stop: 08/05/23 18:05 Last Admin: 08/05/23 19:18 Dose: 975 mg Documented By: DARLINE Hydrocodone Bitart/Acetaminophen (Hydrocodone/Acet 5/325 Tablet) 1 tab PO Q4H PRN PRN Reason: Pain, Moderate (4-6) Hydrocodone Bitart/Acetaminophen (Hydrocodone/Acet 5/325 Tablet) 2 tab PO Q4H PRN PRN Reason: Pain, Severe (7-10) Al Hydrox/Mg Hydrox/Simethicone (Mag Hydrox/Alum/Simeth 30 Ml Udc) 30 ml PO Q6HR PRN PRN Reason: Dyspepsia Docusate Sodium (Docusate 100 Mg Capsule) 100 mg PO BID [facility] Ceftriaxone Sodium 1,000 mg/ (Sodium Chloride) 100 mls @ 200 mls/hr IV NOW ONE Stop: 08/05/23 19:51 Last Infusion: 08/05/23 21:03 Dose: Infused Documented By: Admin: 08/05/23 20:08 Dose: 200 mls/hr Documented By: FRANCES Sodium Chloride (Normal Saline 0.9%) 1,000 mls @ 500 mls/hr IV BOLUS ONE Stop: 08/05/23 22:32 Last Infusion: 08/05/23 21:59 Dose: Infused Documented By: Infusion: 08/05/23 20:50 Dose: 999 mls/hr Documented By: Admin: 08/05/23 20:35 Dose: 500 mls/hr Documented By: DARLINE Lidocaine HCl (Lidocaine 2% (Glydo) 6 Ml Gel) 6 ml TOP NOW ONE Stop: 08/05/23 19:42 Last Admin: 08/05/23 19:45 Dose: 6 ml Documented By: FRANCES Magnesium Hydroxide (Magnesium Hydroxide 30 Ml Udc) 30 ml PO DAILY PRN PRN Reason: Constipation Naloxone HCl (Naloxone 0.4 Mg/Ml Vial) 0.2 mg IV Q2MIN PRN PRN Reason: Opiate Reversal Pantoprazole Sodium (Pantoprazole Dr 20 Mg Tablet) 20 mg PO 0600 [facility] Last Admin: 08/06/23 06:00 Dose: 20 mg Documented By: CAM Vital Signs Vital signs: Vital Signs - 8 hr 08/05/23 18:01 08/05/23 18:01 08/05/23 18:12 Temperature 100.7 F H Pulse Rate 94 H 96 H Respiratory Rate 24 20 Blood Pressure 201/94 H 184/84 H Pulse Oximetry 96 96 Oxygen Delivery Method Room Air 08/05/23 18:21 08/05/23 18:21 08/05/23 18:30 Temperature Pulse Rate 92 H 90 Respiratory Rate 17 20 Blood Pressure 207/89 H Pulse Oximetry 95 93 Oxygen Delivery Method 08/05/23 18:40 08/05/23 18:40 08/05/23 18:47 Temperature 99.7 F H Pulse Rate 95 H Respiratory Rate 19 Blood Pressure 185/82 H Pulse Oximetry 93 94 Oxygen Delivery Method Room Air 08/05/23 19:00 08/05/23 19:00 08/05/23 19:18 Temperature 100.7 F H Pulse Rate 101 H Respiratory Rate 34 H Blood Pressure 175/94 H Pulse Oximetry Oxygen Delivery Method 08/05/23 19:30 08/05/23 19:30 08/05/23 20:00 Temperature Pulse Rate 109 H 90 Respiratory Rate 31 H 35 H Blood Pressure 190/78 H Pulse Oximetry 94 92 Oxygen Delivery Method 08/05/23 20:01 08/05/23 20:01 08/05/23 20:03 Temperature Pulse Rate 97 H 93 H Respiratory Rate 15 24 Blood Pressure 129/58 L 129/58 L Pulse Oximetry 94 92 Oxygen Delivery Method Room Air 08/05/23 20:22 08/05/23 20:30 08/05/23 20:31 Temperature 98.4 F Pulse Rate 88 Respiratory Rate 31 H Blood Pressure 72/40 L Pulse Oximetry 95 Oxygen Delivery Method 08/05/23 20:31 08/05/23 20:33 08/05/23 20:33 Temperature Pulse Rate 89 88 Respiratory Rate 24 31 H Blood Pressure 63/35 L Pulse Oximetry 96 95 Oxygen Delivery Method 08/05/23 20:43 08/05/23 20:43 08/05/23 20:45 Temperature Pulse Rate 84 Respiratory Rate 26 H Blood Pressure 59/28 L 77/45 L Pulse Oximetry 92 Oxygen Delivery Method 08/05/23 20:45 08/05/23 20:48 08/05/23 20:48 Temperature Pulse Rate 83 79 Respiratory Rate 32 H 32 H Blood Pressure 76/43 L Pulse Oximetry 94 92 Oxygen Delivery Method 08/05/23 20:51 08/05/23 20:51 08/05/23 20:54 Temperature Pulse Rate 81 80 Respiratory Rate 30 H 31 H Blood Pressure 82/45 L Pulse Oximetry 92 91 Oxygen Delivery Method 08/05/23 20:54 Temperature Pulse Rate Respiratory Rate Blood Pressure 76/44 L Pulse Oximetry Oxygen Delivery Method <Pritesh Jansen, DO - Last Filed: 08/05/23 23:23> Orders Ordered: Acetaminophen (Acetaminophen 325 Mg Tablet) 650 mg PO Q6H PRN PRN Reason: Fever/Mild Pain (1-3) Apixaban (Apixaban 5 Mg Tablet) 2.5 mg PO BID [facility] Last Admin: 08/06/23 08:07 Dose: 2.5 mg Documented By: LM Atorvastatin Calcium (Atorvastatin 20 Mg Tablet) 10 mg PO BEDTIME [facility] Calcium Carbonate (Calcium Carbonate 500 Mg Tab) 1,000 mg PO Q4HR PRN PRN Reason: Dyspepsia Hydrocortisone (Hydrocortisone 100 Mg/2 Ml Vial) 50 mg IV Q12HR [facility] Sodium Chloride (Normal Saline 0.9%) 1,000 mls @ 100 mls/hr IV CONT [facility] Last Infusion: 08/05/23 23:31 Dose: Infused Documented By: Infusion: 08/05/23 22:00 Dose: 100 mls/hr Documented By: Infusion: 08/05/23 20:46 Dose: 0 mls/hr Documented By: Admin: 08/05/23 20:10 Dose: 100 mls/hr Documented By: FRANCES Sodium Chloride (Normal Saline 0.45%) 1,000 mls @ 100 mls/hr IV CONT [facility] Last Admin: 08/06/23 08:06 Dose: 100 mls/hr Documented By: Infusion: 08/06/23 08:06 Dose: Infused Documented By: Admin: 08/05/23 23:39 Dose: 100 mls/hr Documented By: CAM Ceftriaxone Sodium 1,000 mg/ (Sodium Chloride) 100 mls @ 200 mls/hr IV Q24H [facility] Last Infusion: 08/06/23 10:15 Dose: Infused Documented By: Admin: 08/06/23 08:00 Dose: 200 mls/hr Documented By: LM Levothyroxine Sodium (Levothyroxine 50 Mcg Tablet) 50 mcg PO DAILY [facility] Last Admin: 08/06/23 08:16 Dose: 50 mcg Documented By: LM Metoprolol Tartrate (Metoprolol Ir 25 Mg Tablet) 25 mg PO BID [facility] Last Admin: 08/06/23 10:18 Dose: 25 mg Documented By: LM Multivitamins (Multivitamin 1 Tablet) 1 tab PO DAILY [facility] Last Admin: 08/06/23 08:10 Dose: 1 tab Documented By: LM Nf - Desmopressin 0. (1 Mg Tablet) 0.05 mg PO BEDTIME [facility] Ondansetron HCl (Ondansetron 4 Mg/2 Ml Inj) 4 mg IV Q8HR PRN PRN Reason: Nausea And Vomiting Tamsulosin HCl (Tamsulosin 0.4 Mg Capsule) 0.4 mg PO DAILY [facility] Last Admin: 08/06/23 08:07 Dose: 0.4 mg Documented By: LM Valsartan (Valsartan 80 Mg Tablet) 160 mg PO DAILY [facility] Last Admin: 08/06/23 08:10 Dose: 160 mg Documented By: LM Discontinued Medications Acetaminophen (Acetaminophen 325 Mg Tablet) 975 mg PO NOW ONE Stop: 08/05/23 18:05 Last Admin: 08/05/23 19:18 Dose: 975 mg Documented By: DARLINE Hydrocodone Bitart/Acetaminophen (Hydrocodone/Acet 5/325 Tablet) 1 tab PO Q4H PRN PRN Reason: Pain, Moderate (4-6) Hydrocodone Bitart/Acetaminophen (Hydrocodone/Acet 5/325 Tablet) 2 tab PO Q4H PRN PRN Reason: Pain, Severe (7-10) Al Hydrox/Mg Hydrox/Simethicone (Mag Hydrox/Alum/Simeth 30 Ml Udc) 30 ml PO Q6HR PRN PRN Reason: Dyspepsia Docusate Sodium (Docusate 100 Mg Capsule) 100 mg PO BID [facility] Ceftriaxone Sodium 1,000 mg/ (Sodium Chloride) 100 mls @ 200 mls/hr IV NOW ONE Stop: 08/05/23 19:51 Last Infusion: 08/05/23 21:03 Dose: Infused Documented By: Admin: 08/05/23 20:08 Dose: 200 mls/hr Documented By: FRANCES Sodium Chloride (Normal Saline 0.9%) 1,000 mls @ 500 mls/hr IV BOLUS ONE Stop: 08/05/23 22:32 Last Infusion: 08/05/23 21:59 Dose: Infused Documented By: Infusion: 08/05/23 20:50 Dose: 999 mls/hr Documented By: Admin: 08/05/23 20:35 Dose: 500 mls/hr Documented By: DARLINE Lidocaine HCl (Lidocaine 2% (Glydo) 6 Ml Gel) 6 ml TOP NOW ONE Stop: 08/05/23 19:42 Last Admin: 08/05/23 19:45 Dose: 6 ml Documented By: FRANCES Magnesium Hydroxide (Magnesium Hydroxide 30 Ml Udc) 30 ml PO DAILY PRN PRN Reason: Constipation Naloxone HCl (Naloxone 0.4 Mg/Ml Vial) 0.2 mg IV Q2MIN PRN PRN Reason: Opiate Reversal Pantoprazole Sodium (Pantoprazole Dr 20 Mg Tablet) 20 mg PO 0600 [facility] Last Admin: 08/06/23 06:00 Dose: 20 mg Documented By: CAM Vital Signs Vital signs: Vital Signs - 8 hr 08/05/23 18:01 08/05/23 18:01 08/05/23 18:12 Temperature 100.7 F H Pulse Rate 94 H 96 H Respiratory Rate 24 20 Blood Pressure 201/94 H 184/84 H Pulse Oximetry 96 96 Oxygen Delivery Method Room Air 08/05/23 18:21 08/05/23 18:21 08/05/23 18:30 Temperature Pulse Rate 92 H 90 Respiratory Rate 17 20 Blood Pressure 207/89 H Pulse Oximetry 95 93 Oxygen Delivery Method 08/05/23 18:40 08/05/23 18:40 08/05/23 18:47 Temperature 99.7 F H Pulse Rate 95 H Respiratory Rate 19 Blood Pressure 185/82 H Pulse Oximetry 93 94 Oxygen Delivery Method Room Air 08/05/23 19:00 08/05/23 19:00 08/05/23 19:18 Temperature 100.7 F H Pulse Rate 101 H Respiratory Rate 34 H Blood Pressure 175/94 H Pulse Oximetry Oxygen Delivery Method 08/05/23 19:30 08/05/23 19:30 08/05/23 20:00 Temperature Pulse Rate 109 H 90 Respiratory Rate 31 H 35 H Blood Pressure 190/78 H Pulse Oximetry 94 92 Oxygen Delivery Method 08/05/23 20:01 08/05/23 20:01 08/05/23 20:03 Temperature Pulse Rate 97 H 93 H Respiratory Rate 15 24 Blood Pressure 129/58 L 129/58 L Pulse Oximetry 94 92 Oxygen Delivery Method Room Air 08/05/23 20:22 08/05/23 20:30 08/05/23 20:31 Temperature 98.4 F Pulse Rate 88 Respiratory Rate 31 H Blood Pressure 72/40 L Pulse Oximetry 95 Oxygen Delivery Method 08/05/23 20:31 08/05/23 20:33 08/05/23 20:33 Temperature Pulse Rate 89 88 Respiratory Rate 24 31 H Blood Pressure 63/35 L Pulse Oximetry 96 95 Oxygen Delivery Method 08/05/23 20:43 08/05/23 20:43 08/05/23 20:45 Temperature Pulse Rate 84 Respiratory Rate 26 H Blood Pressure 59/28 L 77/45 L Pulse Oximetry 92 Oxygen Delivery Method 08/05/23 20:45 08/05/23 20:48 08/05/23 20:48 Temperature Pulse Rate 83 79 Respiratory Rate 32 H 32 H Blood Pressure 76/43 L Pulse Oximetry 94 92 Oxygen Delivery Method 08/05/23 20:51 08/05/23 20:51 08/05/23 20:54 Temperature Pulse Rate 81 80 Respiratory Rate 30 H 31 H Blood Pressure 82/45 L Pulse Oximetry 92 91 Oxygen Delivery Method 08/05/23 20:54 Temperature Pulse Rate Respiratory Rate Blood Pressure 76/44 L Pulse Oximetry Oxygen Delivery Method Medical Decision Making <Parris Mckay, DO - Last Filed: 08/06/23 10:44> Lab Data 08/06/23 04:34 08/06/23 04:34 Labs: Lab Results 08/05/23 08/05/23 08/05/23 Range/Units 17:50 18:09 19:52 WBC 8.4 (4.5-11.0) X10^3/uL RBC 4.92 (4.5-5.9) X10^6/uL Hgb 14.4 (13.5-17.5) g/dL Hct 43.3 (41-53) % MCV 88.1 (80-100) fL MCH 29.3 (26-34) PG MCHC 33.3 (30-36) % RDW 14.8 (11.6-14.8) % Plt Count 145 L (150-400) X10^3/uL Neut % (Auto) 64.4 (50-75) % Lymph % (Auto) 24.9 L (25-40) % Jay % (Auto) 9.6 (3-14) % Eos % (Auto) 0.5 L (2-4) % Baso % (Auto) 0.6 (0-2) % Neut # (Auto) 5400 (4923-3426) /uL Lymph # (Auto) 2100 (9545-3330) /uL Jay # (Auto) 800 (0-900) /uL Eos # (Auto) 0 (0-450) /uL Baso # (Auto) 0 (0-100) /uL PT 12.6 H (9.4-12.5) SECONDS INR 1.1 (0.9-1.3) APTT 35 (25.1-36.5) SECONDS Sodium 135 L (137-145) mmol/L Potassium 4.5 (3.4-5.1) mmol/L Chloride 100 (98-107) mmol/L Carbon Dioxide 27 (22-32) mmol/L BUN 29 H (9-20) mg/dL Creatinine 2.31 H (0.66-1.25) mg/dL Estimated GFR 27 L (>60) mL/min BUN/Creatinine Ratio 12.6 (6-22) Glucose 85 (80-110) mg/dL Lactate 1.5 (0.7-2.1) mmol/L Calcium 9.0 (8.4-10.2) mg/dL Total Bilirubin 0.9 (0.2-1.3) mg/dL AST 46 (17-59) IU/L ALT 17 (<50) IU/L Alkaline Phosphatase 73 (38-126) U/L Total Creatine Kinase 82 (55-170) U/L Troponin I 0.054 H 0.075 H (0.01-0.034) ng/mL Total Protein 7.4 (6.3-8.2) g/dL Albumin 4.5 (3.5-5.0) g/dL Globulin 2.9 (1.7-4.1) g/dL Albumin/Globulin Ratio 1.6 (1.0-2.8) Procalcitonin 0.243 (<0.5) ng/mL Urine Color Yellow Urine Appearance Clear Urine pH 6.5 (4.5-8.0) Ur Specific Ferris 1.010 (1.000-1.035) Urine Protein Trace H (Negative) Urine Glucose (UA) Negative (Negative) g/dL Urine Ketones Trace H (NEGATIVE) Urine Occult Blood 2+ H (Negative) Urine Nitrate Negative (Negative) Urine Bilirubin Negative (NEGATIVE) Urine Urobilinogen 0.2 (0.2) E.U./dL Ur Leukocyte Esterase Negative (NEGATIVE) Urine RBC 1-5/hpf (0-5/HPF) Urine WBC None seen (0-5/HPF) Ur Squamous Epith Cells None seen (0-5/HPF) Urine Bacteria Occasional (0-1) (None) Ur Culture Indicated? Cult not indicated Vol Urine Centrifuged 10ml (spun) Chlamy pneumoniae PCR Not detected (Not Detect) Adenovirus (PCR) Not detected (Not Detect) B.parapertussis DNA PCR Not detected (Not Detecte) Coronavirus OC43 (PCR) Not detected (Not Detect) Coronavirus HKU1 (PCR) Not detected (Not Detect) Coronavirus 229E (PCR) Not detected (Not Detect) SARS-CoV-2 (PCR) Not detected (Not Detecte) Coronavirus NL63 (PCR) Not detected (Not Detect) Human Metapneumovir PCR Not detected (Not Detect) Influenza Type A (PCR) Not detected (Not Detect) Influenza Type B (PCR) Not detected (Not Detect) M. pneumoniae (PCR) Not detected (Not Detect) Parainfluenza 1 (PCR) Not detected (Not Detect) Parainfluenza 2 (PCR) Not detected (Not Detect) Parainfluenza 3 (PCR) Detected H (Not Detect) Parainfluenza 4 (PCR) Not detected (Not Detect) RSV (PCR) Not detected (Not Detect) Entero/Rhino (PCR) Not detected (Not Detect) Imaging Data CT scan - head: Radiologist's Impression: Close Head CT (Signed) AldairCruz - 08/05/23 Chest X-Ray 08/05/23 Echocardiogram Ultrasound (Signed) Sandhya Dinh - 12/29/22 Brain MRI (Signed) Ryne Boykin - 12/19/22 Lumbar Spine MRI (Signed) Mo Voss - 08/21/[address] (Signed) Larry,Neo - 08/05/[address] (Signed) Larry,Neo - 08/05/[address] (Signed) Larry,Neo - 08/05/[address] (Signed) Larry,Neo - 08/05/22 Hip X-Ray (Signed) Larry,Neo - 08/05/22 Chest X-Ray (Signed) Larry,Neo - 08/05/[address] (Signed) Pablo Leiva - 11/17/21 Head/Neck CTA (Signed) Pablo Leiva - 11/17/21 Chest X-Ray (Signed) CaliPablo - 11/17/21 PFT Result 05/27/21 PFT Result 05/24/21 Echocardiogram Ultrasound (Signed) EyadBharathi - 03/28/21 Chest CTA (Signed) Reyes Leiva - 03/07/21 Chest X-Ray (Signed) Cruz Quinteros - 02/26/21 Chest X-Ray (Signed) Mervin Lazar - 11/27/20 Echocardiogram Ultrasound (Signed) Cortez Fishman - 03/15/20 Vascular Ultrasound (Signed) Reyes Leiva - 02/21/[address] (Signed) Shaheen Mullins - 05/15/19 Chest X-Ray (Signed) Shaheen Mullins - 05/15/19 Chest X-Ray (Signed) Taz Bowser - 03/31/19 Bone Densitometry 03/31/19 Abdomen/Pelvis CT (Signed) Ryne Boykin - 11/15/[address] (Signed) Alex Cali - 09/06/18 Chest X-Ray (Signed) Mervin Lazar - 08/20/[address] (Signed) Ernesto Daniels - 07/05/18 Chest X-Ray (Signed) Em Chavira - 07/05/18 Brain MRI (Signed) Adan Frausto - 02/15/18 Telemetry Strips 01/21/17 Launch?[place] [address] CT Scan Report Signed Patient: Pablo Saez MR#: [id number] : 1935 Acct:[id number] Age/Sex: 87 / M Date of Service: 08/05/23 Loc: ED Accession Number: [id number] Procedure: CT head/brain wo con Ordering Provider: Parris Mckay D.O. PROCEDURE: CT HEAD/BRAIN WO CON INDICATIONS: fever, lethargic TECHNIQUE: Noncontrast 4.5 mm thick angled axial sections acquired from the foramen magnum to the vertex, with coronal and sagittal reformats. For radiation dose reduction, the following was used: automated exposure control, adjustment of mA and/or kV according to patient size. COMPARISON: [facility], CT, CT HEAD/BRAIN WO CON, 08/05/2022, 10:28. FINDINGS: Image quality: Diagnostic. CSF spaces: Basal cisterns are patent. No extra-axial fluid collections. Ventricles are prominent in size and shape, unchanged. Brain: No midline shift. No intracranial masses or hemorrhage. No area of hypodensity in a large vascular distribution to suggest acute infarction. Periventricular hypodensity consistent with chronic microvascular ischemic change. Age-related parenchymal loss. Skull and face: Calvarium and visualized facial bones are intact, without suspicious lesions. Sinuses: Small air-fluid level in the left maxillary sinus. Mucosal thickening in the ethmoid air cells. IMPRESSION: No acute intracranial pathology. Dictated by: Cruz Quinteros M.D. on 08/05/2023 at 18:32 Approved by: Cruz Quinteros M.D. on 08/05/2023 at 18:35 MDM Narrative Medical decision making narrative: 87-year-old with reported fever in the field of 103 F Patient has a white count 8.4 hemoglobin of 14 platelets of 145, patient was 170s on last check but has had occasional thrombocytopenia. Coags Sodium is 135 potassium 4.5 chloride 100 CO2 is 27 with a BUN 29 creatinine 2.31 has been as high as 2 point in 2020 but has most recently been 2.12 in the past year, glucose 85, lactate of 1.5, LFTs are normal, troponins 0.054, procalcitonin is 0.[address] shows no acute change. Chest xray, pleural effusion, subtle opacity in the right upper lobe which appears chronic. Respiratory panel is pending. Patient signed out to Dr. Jansen, antibiotics not been started appears infectious source indeterminate repeat troponin is pending patient has not been hypotensive. Dr jansen: Received turned over. Review patient's history and physical exam and workup up to this point. Patient is confused. His daughter is at bedside and states that at baseline the patient is alert and oriented and drives and does live on his own. Prior to the result of the respiratory panel patient was given a dose of antibiotics. Blood cultures were obtained. Respiratory panel was subsequently positive for parainfluenza virus 3. I did confirm with the patient's daughter who is also the power of regulatory attorney that the patient is a DNR/DNI however it was okay with fluids and antibiotics. Patient does require admission to the hospital. He did have a period of hypotension with a systolic blood pressures in the 70s and 80s however he did respond well to IV fluids. I did discuss the case with Dr. Grijalva who is on-call for the patient's primary doctor who will admit for further evaluation and treatment. <Pritesh Jansen, DO - Last Filed: 08/05/23 23:23> Lab Data Lab results reviewed: Yes I reviewed the patient's lab results. Labs: Lab Results 08/05/23 08/05/23 08/05/23 Range/Units 17:50 18:09 19:52 WBC 8.4 (4.5-11.0) X10^3/uL RBC 4.92 (4.5-5.9) X10^6/uL Hgb 14.4 (13.5-17.5) g/dL Hct 43.3 (41-53) % MCV 88.1 (80-100) fL MCH 29.3 (26-34) PG MCHC 33.3 (30-36) % RDW 14.8 (11.6-14.8) % Plt Count 145 L (150-400) X10^3/uL Neut % (Auto) 64.4 (50-75) % Lymph % (Auto) 24.9 L (25-40) % Jay % (Auto) 9.6 (3-14) % Eos % (Auto) 0.5 L (2-4) % Baso % (Auto) 0.6 (0-2) % Neut # (Auto) 5400 (7108-9070) /uL Lymph # (Auto) 2100 (9986-3676) /uL [place] # (Auto) 800 (0-900) /uL Eos # (Auto) 0 (0-450) /uL Baso # (Auto) 0 (0-100) /uL PT 12.6 H (9.4-12.5) SECONDS INR 1.1 (0.9-1.3) APTT 35 (25.1-36.5) SECONDS Sodium 135 L (137-145) mmol/L Potassium 4.5 (3.4-5.1) mmol/L Chloride 100 (98-107) mmol/L Carbon Dioxide 27 (22-32) mmol/L BUN 29 H (9-20) mg/dL Creatinine 2.31 H (0.66-1.25) mg/dL Estimated GFR 27 L (>60) mL/min BUN/Creatinine Ratio 12.6 (6-22) Glucose 85 (80-110) mg/dL Lactate 1.5 (0.7-2.1) mmol/L Calcium 9.0 (8.4-10.2) mg/dL Total Bilirubin 0.9 (0.2-1.3) mg/dL AST 46 (17-59) IU/L ALT 17 (<50) IU/L Alkaline Phosphatase 73 (38-126) U/L Total Creatine Kinase 82 (55-170) U/L Troponin I 0.054 H 0.075 H (0.01-0.034) ng/mL Total Protein 7.4 (6.3-8.2) g/dL Albumin 4.5 (3.5-5.0) g/dL Globulin 2.9 (1.7-4.1) g/dL Albumin/Globulin Ratio 1.6 (1.0-2.8) Procalcitonin 0.243 (<0.5) ng/mL Urine Color Yellow Urine Appearance Clear Urine pH 6.5 (4.5-8.0) Ur Specific [place] 1.010 (1.000-1.035) Urine Protein Trace H (Negative) Urine Glucose (UA) Negative (Negative) g/dL Urine Ketones Trace H (NEGATIVE) Urine Occult Blood 2+ H (Negative) Urine Nitrate Negative (Negative) Urine Bilirubin Negative (NEGATIVE) Urine Urobilinogen 0.2 (0.2) E.U./dL Ur Leukocyte Esterase Negative (NEGATIVE) Urine RBC 1-5/hpf (0-5/HPF) Urine WBC None seen (0-5/HPF) Ur Squamous Epith Cells None seen (0-5/HPF) Urine Bacteria Occasional (0-1) (None) Ur Culture Indicated? Cult not indicated Vol Urine Centrifuged 10ml (spun) Chlamy pneumoniae PCR Not detected (Not Detect) Adenovirus (PCR) Not detected (Not Detect) B.parapertussis DNA PCR Not detected (Not Detecte) Coronavirus OC43 (PCR) Not detected (Not Detect) Coronavirus HKU1 (PCR) Not detected (Not Detect) Coronavirus 229E (PCR) Not detected (Not Detect) SARS-CoV-2 (PCR) Not detected (Not Detecte) Coronavirus NL63 (PCR) Not detected (Not Detect) Human Metapneumovir PCR Not detected (Not Detect) Influenza Type A (PCR) Not detected (Not Detect) Influenza Type B (PCR) Not detected (Not Detect) M. pneumoniae (PCR) Not detected (Not Detect) Parainfluenza 1 (PCR) Not detected (Not Detect) Parainfluenza 2 (PCR) Not detected (Not Detect) Parainfluenza 3 (PCR) Detected H (Not Detect) Parainfluenza 4 (PCR) Not detected (Not Detect) RSV (PCR) Not detected (Not Detect) Entero/Rhino (PCR) Not detected (Not Detect) Imaging Data Chest x-ray: Radiologist's Impression: PROCEDURE: XR CHEST 1V INDICATIONS: fever, tired TECHNIQUE: One view of the chest was acquired. COMPARISON: [facility], , XR CHEST 1V, 08/05/2022, 10:29. [facility], , XR CHEST 1V, 11/17/2021, 9:45. FINDINGS: Surgical changes and devices: None. Lungs and pleura: Subtle opacity in the right upper lobe which appears chronic. No pneumothorax. Small right pleural effusion. Mediastinum: Mediastinal contours appear normal. Heart size is normal. Bones and chest wall: No suspicious bony lesions. Overlying soft tissues appear unremarkable. IMPRESSION: Small right pleural effusion. Subtle opacity in the right upper lobe which appears chronic. CT scan - head: Radiologist's Impression: Launch?[place] [address] CT Scan Report Signed Patient: Pablo Saez MR#: [id number] : 1935 Acct:[id number] Age/Sex: 87 / M Date of Service: 08/05/23 Loc: ED Accession Number: [id number] Procedure: CT head/brain wo con Ordering Provider: Parris Mckay D.O. PROCEDURE: CT HEAD/BRAIN WO CON INDICATIONS: fever, lethargic TECHNIQUE: Noncontrast 4.5 mm thick angled axial sections acquired from the foramen magnum to the vertex, with coronal and sagittal reformats. For radiation dose reduction, the following was used: automated exposure control, adjustment of mA and/or kV according to patient size. COMPARISON: [facility], CT, CT HEAD/BRAIN WO CON, 08/05/2022, 10:28. FINDINGS: Image quality: Diagnostic. CSF spaces: Basal cisterns are patent. No extra-axial fluid collections. Ventricles are prominent in size and shape, unchanged. Brain: No midline shift. No intracranial masses or hemorrhage. No area of hypodensity in a large vascular distribution to suggest acute infarction. Periventricular hypodensity consistent with chronic microvascular ischemic change. Age-related parenchymal loss. Skull and face: Calvarium and visualized facial bones are intact, without suspicious lesions. Sinuses: Small air-fluid level in the left maxillary sinus. Mucosal thickening in the ethmoid air cells. IMPRESSION: No acute intracranial pathology. Dictated by: Cruz Quinteros M.D. on 08/05/2023 at 18:32 Approved by: Cruz Quinteros M.D. on 08/05/2023 at 18:35 MDM Narrative Medical decision making narrative: 87-year-old with reported fever in the field of 103 F Patient has a white count 8.4 hemoglobin of 14 platelets of 145, patient was 170s on last check but has had occasional thrombocytopenia. Coags Sodium is 135 potassium 4.5 chloride 100 CO2 is 27 with a BUN 29 creatinine 2.31 has been as high as 2 point in 2020 but has most recently been 2.12 in the past year, glucose 85, lactate of 1.5, LFTs are normal, troponins 0.054, procalcitonin UA Head CT Chest xray Respiratory panel Dr jansen: Received turned over. Review patient's history and physical exam and workup up to this point. Patient is confused. His daughter is at bedside and states that at baseline the patient is alert and oriented and drives and does live on his own. Prior to the result of the respiratory panel patient was given a dose of antibiotics. Blood cultures were obtained. Respiratory panel was subsequently positive for parainfluenza virus 3. I did confirm with the patient's daughter who is also the power of regulatory attorney that the patient is a DNR/DNI however it was okay with fluids and antibiotics. Patient does require admission to the hospital. He did have a period of hypotension with a systolic blood pressures in the 70s and 80s however he did respond well to IV fluids. I did discuss the case with Dr. Grijalva who is on-call for the patient's primary doctor who will admit for further evaluation and treatment. Discharge Plan Departure Patient Disposition: Admitted As Inpatient Clinical Impression: Altered mental status, Parainfluenza Admit Date/Time: 08/05/23 20:55 Admit Provider: Reyes Beckford
[2023-08-05 18:26] LABS: INR 1.1 (0.9-1.3); Prothrombin Time 12.6 SECONDS (9.4-12.5)
[2023-08-05 18:30] LABS: Alanine Aminotransferase 17 IU/L (<50); Albumin 4.5 g/dL (3.5-5.0); Albumin Globulin Ratio 1.6 (1.0-2.8); Alkaline Phosphatase 73 U/L (38-126); Aspartate Aminotransferase 46 IU/L (17-59); BUN Creatinine Ratio 12.6 (6-22); Bilirubin Total 0.9 mg/dL (0.2-1.3); Blood Urea Nitrogen 29 mg/dL (9-20); Carbon Dioxide 27 mmol/L (22-32); Chloride 100 mmol/L (98-107); Creatine Kinase 82 U/L (55-170); Estimated Glomerular Filt Rate 27 mL/min (>60); Globulin 2.9 g/dL (1.7-4.1); Glucose 85 mg/dL (80-110); HEMOLYSIS < 15 (0-50); Lactate (Lactic Acid) 1.5 mmol/L (0.7-2.1); Potassium 4.5 mmol/L (3.4-5.1); Sodium 135 mmol/L (137-145); Total Protein 7.4 g/dL (6.3-8.2)
[2023-08-05 18:42] LABS: Troponin I 0.054 ng/mL (0.01-0.034)
[2023-08-05 18:43] LABS: PTT Partial Thromboplastin Tim 35 SECONDS (25.1-36.5)
[2023-08-05 18:46] LABS: Procalcitonin 0.243 ng/mL (<0.5)
[2023-08-05] MEDS: ACETAMINOPHEN 325 MG TABLET 975 MG PO (19:18)
[2023-08-05] MEDS: LIDOCAINE 2% (GLYDO) 6 ML GEL TOP (19:45)
[2023-08-05 19:51] LABS: Adenovirus Not Detected (Not Detect); B. parapertussis Not Detected (Not Detecte); Bordetella pertussis Not Detected (Not Detect); Chlamydophila pneumoniae Not Detected (Not Detect); Coronavirus 229E Not Detected (Not Detect); Coronavirus HKU1 Not Detected (Not Detect); Coronavirus NL 63 Not Detected (Not Detect); Coronavirus OC43 Not Detected (Not Detect); Human Metapneumovirus Not Detected (Not Detect); Human Rhinovirus/Enterovirus Not Detected (Not Detect); Influenza A Not Detected (Not Detect); Influenza B Not Detected (Not Detect); Mycoplasma pneumoniae Not Detected (Not Detect); Parainfluenza Virus 1 Not Detected (Not Detect); Parainfluenza Virus 2 Not Detected (Not Detect); Parainfluenza Virus 3 Detected (Not Detect); Parainfluenza Virus 4 Not Detected (Not Detect); Respiratory Syncytial Virus Not Detected (Not Detect); SARS- CoV-2 Not Detected (Not Detecte)
[2023-08-05] MEDS: cefTRIAXone 1,000 MG in SODIUM CHLORIDE 0.9% 100 ML 200 MG IV (20:08)
[2023-08-05] MEDS: SODIUM CHLORIDE 0.9% 1,000 ML 100 ML IV (20:10)
[2023-08-05] MEDS: SODIUM CHLORIDE 0.9% 1,000 ML 500 ML IV (20:35)
[2023-08-05 20:36] LABS: Appearance Urine UA CLEAR; Bilirubin Urine UA NEGATIVE (NEGATIVE); Color Urine UA YELLOW; Glucose Urine UA NEGATIVE (Negative); Ketones Urine UA TRACE (NEGATIVE); Leukocyte Esterase Urine UA NEGATIVE (NEGATIVE); Nitrite Urine UA NEGATIVE (Negative); Occult Blood Urine UA 2+ (Negative); Protein Urine UA TRACE (Negative); Urobilinogen Urine UA 0.2 E.U./dL (0.2); pH Urine UA 6.5 (4.5-8.0)
[2023-08-05 20:38] LABS: Troponin I 0.075 ng/mL (0.01-0.034)
--- NOTE | 2023-08-05 20:48 | PC.NURSE ---
pt blood pressure noted to have significant drop. bp cuff adjusted, and patient sat upright. only slight improvement in MAP. provider immediatley notified. order for fluid bolus placed. second line started and pt trendelenburged. BP to be taken Q3-5min.
[2023-08-05 20:57] LABS: Bacteria Urine Occasional (0-1); RBC Urine 1-5/HPF (0-5/HPF); Squamous Epithelial Cell Urine None Seen (0-5/HPF); Urine Volume 10mL (spun); WBC Urine None Seen (0-5/HPF)
[2023-08-05 20:58] LABS: Culture Indicated Urine Cult Not Indicated
--- NOTE | 2023-08-05 21:07 | PC.NURSE ---
provider notified of continued low MAP and BP. order for 500ml bolus bumped up to 1000ml. BP continued to be monitored. provider kept apprized of situation.
[2023-08-05] MEDS: SODIUM CHLORIDE 0.45% 1,000 ML 100 ML IV (23:39)
[2023-08-06] VITALS (85 sets, daily range): BP systolic 69–198; BP diastolic 35–79; PULSE 48–81; RESP 17–46; TEMP 35.9–39.5; O2SAT 86–100
--- NOTE | 2023-08-06 00:24 | PC.NURSE ---
Pt. arrived to the unit via stretcher and transferred to bed using a transfer board. Pt. is drowsy but is alert and oriented. Pt. has a wet cough but denies shortness of breath or pain with inspiration/expiration and coughing. Cough is non productive. Pt. given call light and instructed never to get OOB without any assistance and pt. agreed but bed alarm still activated. Pt. also oriented to bed control operation. Will cont. to monitor.
[2023-08-06 01:27] LABS: MRSA (Nasal) PCR NOT DETECTED (Not Detect)
[2023-08-06 04:43] LABS: Add Manual Diff / Slide Review NO; Basophils Absolute Auto 0 /uL (0-100); Basophils Percent Auto 0.4 % (0-2); Eosinophils Absolute Auto 0 /uL (0-450); Eosinophils Percent Auto 0.1 % (2-4); Hematocrit 38.3 % (41-53); Lymphocytes Absolute Auto 1300 /uL (1100-4500); Lymphocytes Percent Auto 14.4 % (25-40); Mean Corpuscular HGB Conc 33.9 % (30-36); Mean Corpuscular Hemoglobin 29.8 PG (26-34); Mean Corpuscular Volume 87.8 fL (80-100); Monocytes Absolute Auto 900 /uL (0-900); Monocytes Percent Auto 9.7 % (3-14); Neutrophils Absolute Auto 6900 /uL (1500-7000); Neutrophils Percent Auto 75.4 % (50-75); Platelet Count 109 X10^3/uL (150-400); Red Blood Cell Count 4.37 X10^6/uL (4.5-5.9); Red Cell Distribution Width 14.8 % (11.6-14.8); White Blood Cell Count 9.2 X10^3/uL (4.5-11.0)
[2023-08-06 05:10] LABS: Creatine Kinase 406 U/L (55-170)
[2023-08-06 05:11] LABS: BUN Creatinine Ratio 13.6 (6-22); Blood Urea Nitrogen 30 mg/dL (9-20); Calcium 7.7 mg/dL (8.4-10.2); Carbon Dioxide 23 mmol/L (22-32); Chloride 107 mmol/L (98-107); Estimated Glomerular Filt Rate 28 mL/min (>60); Glucose 74 mg/dL (80-110); HEMOLYSIS < 15 (0-50); Potassium 4.6 mmol/L (3.4-5.1); Sodium 135 mmol/L (137-145)
[2023-08-06 05:36] LABS: Troponin I 0.201 ng/mL (0.01-0.034)
[2023-08-06] MEDS: PANTOPRAZOLE DR 20 MG TABLET PO (06:00)
--- NOTE | 2023-08-06 06:44 | PC.NURSE ---
Pt. placed on 02 2L NC now due to desaturation down to 89%. He is now at 94 %. Through the night pt. 02 sats was in the low 90's.
--- NOTE | 2023-08-06 07:19 | PM.HP.1 ---
History of Present Illness History of Present Illness Date Patient Seen: 08/06/23 Time Patient Seen: 10:09 Date of Onset of Symptoms: 08/06/23 Chief complaint: Lethargic Narrative: Patient is an 87-year-old male with factor 5 Leiden deficiency hypertension hyperlipidemia chronic kidney disease history of venous thromboembolus and pulmonary embolus carotid artery stenosis pituitary adenoma with resection in 2017. Patient was brought into the emergency department by ambulance because of weakness and confusion. Patient lives at home by himself. His daughter had been trying to contact him and was unable to do so she went in and checked on him. Patient was in bed was confused and had loss of bladder function. She was concerned about his change in status. He is normally active ambulating living independently and driving. This was a significant decline. Patient was evaluated in the emergency department and was admitted to the hospital. On my evaluation this morning patient states that he has not been feeling well for 2 or 3 days he has had a sore throat cough congestion and increasing weakness and difficulty getting out of bed and ambulating. Patient was apparently much more confused which he recognizes this morning last night. But he says he is starting to feel a little bit better. Does recognize meaning knows he is in the hospital not currently complaining of significant shortness of breath or chest pain complaining of weakness sore throat and cough. Patient had an evaluation in the emergency department patient did not have an elevated white blood cell count or significantly anemic he has a mildly low sodium has chronic kidney disease with an EGFR of 28 which is considered 3B. His glucose is normal. Patient had an elevated creatinine kinase of 406 but initial evaluation showed mildly elevated troponin at 0.075 indeterminate where his current troponin is 0.201 procalcitonin level is 0.243 thyroid test is 0.02 but T4 is 1.68 his urinalysis shows some mild blood but no signs of acute infection his parainfluenza virus PCR is positive. Patient had a CT scan of his head which showed no acute changes a chest x-ray shows right-sided pleural effusion and a chronic right upper lobe opacity. 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 Elevated troponin Acute kidney injury Dehydration Thromboembolism of proximal vein of left lower extremity (05/07/16) Hypertension (11/30/14) Hyperlipidemia (11/30/14) Glaucoma (11/30/14) Cataract (11/30/14) Syncope Surgical History Status post appendectomy Family History Grandfather Mental health problem Grandmother Hypertension Mother Age: 109 Colon cancer Grandfather Heart disease Social History household members: none Smoking Status: Former smoker alcohol intake: current Meds Home Medications and Allergies Home Medications Medication Instructions Recorded Confirmed Type hydrocortisone 20 mg tablet 20 mg PO DAILY ##0 09/30/16 08/05/23 History (Cortef) desmopressin 0.1 mg tablet 0.05 mg PO BEDTIME ##0 01/14/17 08/05/23 History latanoprost 0.005 % eye drops 1 drp EYE-BOTH BEDTIME ##0 01/21/17 08/05/23 History calcium carbonate 500 mg calcium 500 mg PO DAILY 07/05/18 08/05/23 History (1,250 mg) tablet (Calcium 500) multivitamin 1 tab PO DAILY 07/05/18 08/05/23 History apixaban 2.5 mg tablet 2.5 mg PO BID #60 tabs 10/27/22 08/05/23 Rx atorvastatin 10 mg tablet 10 mg PO QPM #90 tabs 11/20/22 08/06/23 Rx valsartan 160 mg tablet 160 mg PO DAILY 12/22/22 08/05/23 History tamsulosin 0.4 mg capsule (Flomax) 0.4 mg PO DAILY #90 caps 02/24/23 08/05/23 Rx levothyroxine 50 mcg tablet 50 mcg PO DAILY #60 tabs 03/04/23 08/06/23 Rx Allergies Allergy/AdvReac Type Severity Reaction Status Date / Time No Known Drug Allergies Allergy Unknown Verified 04/27/23 10:11 [NO KNOWN DRUG ALLERGIES] Exam Vital Signs (past 8 hours): - 08/05/23 23:34 08/05/23 23:50 08/06/23 00:00 Temperature Pulse Rate 76 74 Respiratory Rate 18 20 Blood Pressure Pulse Oximetry 93 95 Oxygen Delivery Method Room Air 08/06/23 00:01 08/06/23 00:01 08/06/23 00:06 Temperature 100.3 F H Pulse Rate 72 Respiratory Rate 21 Blood Pressure 100/55 L Pulse Oximetry 93 Oxygen Delivery Method 08/06/23 00:30 08/06/23 00:30 08/06/23 01:00 Temperature Pulse Rate 69 70 Respiratory Rate 26 H 23 Blood Pressure 115/56 L Pulse Oximetry 92 91 Oxygen Delivery Method 08/06/23 01:00 08/06/23 01:30 08/06/23 01:30 Temperature 100.5 F H Pulse Rate 73 Respiratory Rate 23 Blood Pressure 159/71 H 174/73 H Pulse Oximetry 94 Oxygen Delivery Method 08/06/23 01:34 08/06/23 01:34 08/06/23 02:00 Temperature Pulse Rate 72 81 Respiratory Rate 26 H 20 Blood Pressure 153/70 H Pulse Oximetry 93 95 Oxygen Delivery Method 08/06/23 02:01 08/06/23 02:01 08/06/23 02:09 Temperature Pulse Rate 77 Respiratory Rate 21 Blood Pressure 189/77 H 135/60 Pulse Oximetry 95 Oxygen Delivery Method 08/06/23 02:09 08/06/23 02:30 08/06/23 03:00 Temperature Pulse Rate 74 72 70 Respiratory Rate 27 H 27 H 26 H Blood Pressure Pulse Oximetry 92 91 93 Oxygen Delivery Method 08/06/23 03:00 08/06/23 03:30 08/06/23 04:00 Temperature Pulse Rate 78 70 Respiratory Rate 33 H 22 Blood Pressure 149/63 H Pulse Oximetry 92 96 Oxygen Delivery Method 08/06/23 04:00 08/06/23 04:21 08/06/23 04:30 Temperature 99.4 F Pulse Rate 66 Respiratory Rate 17 Blood Pressure 125/60 Pulse Oximetry 93 Oxygen Delivery Method 08/06/23 05:00 08/06/23 05:00 08/06/23 05:30 Temperature Pulse Rate 63 69 Respiratory Rate 23 23 Blood Pressure 96/54 L Pulse Oximetry 94 94 Oxygen Delivery Method 08/06/23 06:00 08/06/23 06:00 Temperature 99.0 F Pulse Rate 70 Respiratory Rate 27 H Blood Pressure 149/66 H Pulse Oximetry 94 Oxygen Delivery Method Oxygen Delivery Method Room Air Narrative Exam Narrative: Gen.: Alert lying in bed somewhat weak recognizes me and knows he is in the hospital HEENT: Pupils equal round and reactive or mucosa is dry he is got some redness to his throat and periauricular area Cardio: S1-S2 regular rate and rhythm Respiratory: Lungs show no wheezes or crackles normal respiratory effort Abdomen: Soft nontender no rebound or guarding no liver spleen enlargement no appreciable hernias Extremities: Patient has no weakness in his lower extremities no edema he is warm dry perfused Neurologic: No focal neurological deficits Objective Labs 08/06/23 04:34 08/06/23 04:34 Labs: Laboratory Results - last 24 hr 08/05/23 08/05/23 08/05/23 17:50 18:09 19:52 WBC 8.4 RBC 4.92 Hgb 14.4 Hct 43.3 MCV 88.1 MCH 29.3 MCHC 33.3 RDW 14.8 Plt Count 145 L Neut % (Auto) 64.4 Lymph % (Auto) 24.9 L [place] % (Auto) 9.6 Eos % (Auto) 0.5 L Baso % (Auto) 0.6 Neut # (Auto) 5400 Lymph # (Auto) 2100 [place] # (Auto) 800 Eos # (Auto) 0 Baso # (Auto) 0 PT 12.6 H INR 1.1 APTT 35 Sodium 135 L Potassium 4.5 Chloride 100 Carbon Dioxide 27 BUN 29 H Creatinine 2.31 H Estimated GFR 27 L BUN/Creatinine Ratio 12.6 Glucose 85 Lactate 1.5 Calcium 9.0 Total Bilirubin 0.9 AST 46 ALT 17 Alkaline Phosphatase 73 Total Creatine Kinase 82 Troponin I 0.054 H 0.075 H Total Protein 7.4 Albumin 4.5 Globulin 2.9 Albumin/Globulin Ratio 1.6 Procalcitonin 0.243 Urine Color Yellow Urine Appearance Clear Urine pH 6.5 Ur Specific [place] 1.010 Urine Protein Trace H Urine Glucose (UA) Negative Urine Ketones Trace H Urine Occult Blood 2+ H Urine Nitrate Negative Urine Bilirubin Negative Urine Urobilinogen 0.2 Ur Leukocyte Esterase Negative Urine RBC 1-5/hpf Urine WBC None seen Ur Squamous Epith Cells None seen Urine Bacteria Occasional (0-1) Ur Culture Indicated? Cult not indicated Vol Urine Centrifuged 10ml (spun) Nasal Screen MRSA (PCR) Chlamy pneumoniae PCR Not detected Adenovirus (PCR) Not detected B.parapertussis DNA PCR Not detected Coronavirus OC43 (PCR) Not detected Coronavirus HKU1 (PCR) Not detected Coronavirus 229E (PCR) Not detected SARS-CoV-2 (PCR) Not detected Coronavirus NL63 (PCR) Not detected Human Metapneumovir PCR Not detected Influenza Type A (PCR) Not detected Influenza Type B (PCR) Not detected M. pneumoniae (PCR) Not detected Parainfluenza 1 (PCR) Not detected Parainfluenza 2 (PCR) Not detected Parainfluenza 3 (PCR) Detected H Parainfluenza 4 (PCR) Not detected RSV (PCR) Not detected Entero/Rhino (PCR) Not detected 08/05/23 08/06/23 23:59 04:34 WBC 9.2 RBC 4.37 L Hgb 13.0 L Hct 38.3 L MCV 87.8 MCH 29.8 MCHC 33.9 RDW 14.8 Plt Count 109 L Neut % (Auto) 75.4 H Lymph % (Auto) 14.4 L [place] % (Auto) 9.7 Eos % (Auto) 0.1 L Baso % (Auto) 0.4 Neut # (Auto) 6900 Lymph # (Auto) 1300 [place] # (Auto) 900 Eos # (Auto) 0 Baso # (Auto) 0 PT INR APTT Sodium 135 L Potassium 4.6 Chloride 107 Carbon Dioxide 23 BUN 30 H Creatinine 2.20 H Estimated GFR 28 L BUN/Creatinine Ratio 13.6 Glucose 74 L Lactate Calcium 7.7 L Total Bilirubin AST ALT Alkaline Phosphatase Total Creatine Kinase 406 H D Troponin I 0.201 H* Total Protein Albumin Globulin Albumin/Globulin Ratio Procalcitonin Urine Color Urine Appearance Urine pH Ur Specific [place] Urine Protein Urine Glucose (UA) Urine Ketones Urine Occult Blood Urine Nitrate Urine Bilirubin Urine Urobilinogen Ur Leukocyte Esterase Urine RBC Urine WBC Ur Squamous Epith Cells Urine Bacteria Ur Culture Indicated? Vol Urine Centrifuged Nasal Screen MRSA (PCR) Not detected Chlamy pneumoniae PCR Adenovirus (PCR) B.parapertussis DNA PCR Coronavirus OC43 (PCR) Coronavirus HKU1 (PCR) Coronavirus 229E (PCR) SARS-CoV-2 (PCR) Coronavirus NL63 (PCR) Human Metapneumovir PCR Influenza Type A (PCR) Influenza Type B (PCR) M. pneumoniae (PCR) Parainfluenza 1 (PCR) Parainfluenza 2 (PCR) Parainfluenza 3 (PCR) Parainfluenza 4 (PCR) RSV (PCR) Entero/Rhino (PCR) Assessment & Plan Assessment and plan (1) Parainfluenza: Status: Acute (2) Type 2 acute myocardial infarction: Status: Acute (3) Metabolic encephalopathy: Status: Acute Plan Parainfluenza virus pneumonia patient with weakness increased work in breathing altered mental status. Patient has normal white blood cell count and procalcitonin patient's symptoms are consistent with upper and lower respiratory infection his PCR test is positive for parainfluenza virus. Patient has viral infection and viral pneumonia. Patient has a pleural effusion on his chest x-ray. I suspect that his symptoms are viral mediated but I will go ahead and cover him with an antibacterial just in case. Will place him on ceftriaxone 1000 mg Q 24 hours renally dosed Acute metabolic encephalopathy patient with significant weakness and mental status changes due to underlying viral infection and pneumonia. He is more oriented now this morning. After fluid hydration and resuscitation and oxygen. Patient is oriented to me but not quite back to baseline. Anticipate as we treat his underlying infection issues this will get better. Type 2 myocardial infarction patient has elevation of his troponin. Mildly elevated when he came in it has increased a little bit. Patient is on anticoagulation with Eliquis. Will start a beta-marti. I suspect his troponin is due to his weakness infection. EKG shows bundle branch block which is consistent with previous. He has not have any chest pain currently. Will continue to trend his cardiac enzymes. Add metoprolol to his medication regimen. If he becomes symptomatic may consider further medical infections although due to his significant chronic kidney disease I think medical management would be most appropriate in this patient given his kidney function Chronic kidney disease stage 3 C chronic kidney disease with a creatinine clearance less than 30. Patient's fluid and electrolytes will be monitored closely. There is no signs of acute kidney injury at this point. We will continue to trend his creatinine and be careful with IV fluids and electrolytes. Pituitary adenoma status post resection patient is status post pituitary resection. Patient is on desmopressin and hydrocortisone 20 mg a day. Due to his recent illness mental status changes he does not show that he is in acute adrenal crisis based on blood pressure electrolytes. I would like to provide stress dose steroids 50 mg of hydrocortisone twice daily IV. We will back this off once he returns to baseline health. Factor 5 Leiden deficiency with history of venous thromboembolism and pulmonary embolus patient is currently anticoagulated with Eliquis at home we will continue his anticoagulation during the hospital stay Carotid artery stenosis chronic and stable Hypertension blood pressure is a little high this morning start his home blood pressure medication and added a beta-marti Hyperlipidemia continue with cholesterol medication Quality VTE Deep Vein Thrombosis/Pulmonary Embolism Present on Admission: No I[facility] PROFEE Charge Codes Initial inpatient/observation care: 43044
[2023-08-06] MEDS: cefTRIAXone 1,000 MG in SODIUM CHLORIDE 0.9% 100 ML 200 MG IV (08:00)
[2023-08-06] MEDS: SODIUM CHLORIDE 0.45% 1,000 ML 100 ML IV (08:06)
[2023-08-06] MEDS: APIXABAN 5 MG TABLET 2.5 MG PO ×2 (08:07→20:37)
[2023-08-06] MEDS: TAMSULOSIN 0.4 MG CAPSULE PO (08:07)
[2023-08-06] MEDS: MULTIVITAMIN 1 TABLET 1 TAB PO (08:10)
[2023-08-06] MEDS: VALSARTAN 80 MG TABLET 160 MG PO (08:10)
[2023-08-06] MEDS: LEVOTHYROXINE 50 MCG TABLET PO (08:16)
[2023-08-06 08:19] LABS: Cortisol AM (Before 10AM) 6.72 ug/dL (4.46-22.7)
[2023-08-06] MEDS: METOPROLOL IR 25 MG TABLET PO (10:18)
[2023-08-06] MEDS: HYDROCORTISONE 100 MG/2 ML VIAL 50 MG IV ×2 (12:08→23:19)
[2023-08-06] MEDS: ACETAMINOPHEN 325 MG TABLET 650 MG PO (12:08)
--- NOTE | 2023-08-06 12:09 | PT-IP ANOTE ---
PT order received. PT reviewed chart and noted that pt was adm yesterday with confusion. His troponin is trending upward since admission. Will hold PT today and follow along with medical impression and pt's medical presentation. Would like to see troponin trending downward before initiating PT. Thank you.
[2023-08-06] MEDS: SODIUM CHLORIDE 0.9% 1,000 ML 1000 ML IV (13:32)
[2023-08-06 13:40] LABS: Creatine Kinase 443 U/L (55-170)
[2023-08-06 13:54] LABS: Troponin I 0.163 ng/mL (0.01-0.034)
[2023-08-06] MEDS: SODIUM CHLORIDE 0.9% 1,000 ML 100 ML IV ×2 (14:12→14:23)
--- NOTE | 2023-08-06 14:26 | CM.DANOTE ---
Initial DCP Assessment Visit Reviewed EMR and team rounds for pt's medical status and updates. Went to go meet with pt at bedside to introduce self and role, pt was found to be sleeping, appearing comfortable at this time. Called his daughter, Em, to introduce self and role, and explained that one of us SEPARATIONS SCIENTIST's will be available prior to his discharge to assist with whichever final recommendations and resources are needed depending on pt's improvement with antibiotics, and the final eval/recommendations of PT/OT. Pt does live independently in his own home, still drives, and is alert/oriented at baseline. Em will be available to transport pt back home if that is the recommendation. Payor: Teersita HERNANDEZ [facility] PCP: Dr. Beckford Pt is a 87 year-old M presented to the ED last evening via EMS after being found in his bed with altered mental status, and being found in bed unable to get up, and had urinated all over himself. In the ED he was found to have a fever, confusion, altered mental status, and generalized weakness. He was oriented to self, but not time/place. He was found to have a high WBC count, and his respoiratory panel was positive for parinfluenza. He was started on IV ABO's and fluids, then admitted to the floor for continued tx/evaluation. DCP will continue to follow and assist with final recommendations and needs. Discharge Planning/Care Management CM Discharge Assessment Start: 08/06/23 14:20 Freq: Status: Active Protocol: Document 08/06/23 14:21 DPL (Rec: 08/06/23 14:23 DPL [id number]) Discharge Planning Assessment Assigned Tram Inspector MARICEL Tubbs Advance Directives? Yes Advance Directives on File Yes History Provided By Family Member,Medical Record Expected Length of Stay 3 Has Patient been admitted in last 30 No days? Prior Living Arrangements House Household Members none Type of transporation used prior to Drives own vehicle admit Independent with ADL's Yes Is patient alert and oriented? Yes Comment N/A Caregiver for Another No Comment Pending improvement with antibiotics, and PT/OT eval/ recommendatins. Barriers to Discharge No Discharge Plan Home with Home Health Transportation Arrangement Dtr bedside and can provide transport Referrals Initiated None needed Medicare Choice List Provided No Comment SEPARATIONS SCIENTIST will discuss pt/dtr preferences for either Home Health or SNF prior to d/c. [place] Updated in Patient Room with Yes name and ext. # of Tram Inspector Review Status In Process Please Provide Date Initial DC 08/06/23 Assessment Was Performed
[2023-08-06] MEDS: ATORVASTATIN 20 MG TABLET 10 MG PO (20:38)
[2023-08-07] VITALS (28 sets, daily range): BP systolic 107–187; BP diastolic 55–74; PULSE 51–134; RESP 16–32; TEMP 36.6; O2SAT 89–99
[2023-08-07] MEDS: SODIUM CHLORIDE 0.9% 1,000 ML 100 ML IV (00:56)
[2023-08-07] MEDS: cefTRIAXone 1,000 MG in SODIUM CHLORIDE 0.9% 100 ML 200 MG IV (07:51)
[2023-08-07 07:57] LABS: Add Manual Diff / Slide Review NO; Basophils Absolute Auto 0 /uL (0-100); Basophils Percent Auto 0.2 % (0-2); Eosinophils Absolute Auto 0 /uL (0-450); Hematocrit 35.5 % (41-53); Lymphocytes Absolute Auto 700 /uL (1100-4500); Lymphocytes Percent Auto 7.8 % (25-40); Mean Corpuscular HGB Conc 33.8 % (30-36); Mean Corpuscular Hemoglobin 29.6 PG (26-34); Mean Corpuscular Volume 87.6 fL (80-100); Monocytes Absolute Auto 300 /uL (0-900); Monocytes Percent Auto 2.8 % (3-14); Neutrophils Absolute Auto 8000 /uL (1500-7000); Neutrophils Percent Auto 89.2 % (50-75); Platelet Count 101 X10^3/uL (150-400); Red Blood Cell Count 4.05 X10^6/uL (4.5-5.9); Red Cell Distribution Width 14.8 % (11.6-14.8)
[2023-08-07 08:13] LABS: Alanine Aminotransferase 17 IU/L (<50); Albumin 3.1 g/dL (3.5-5.0); Albumin Globulin Ratio 1.3 (1.0-2.8); Alkaline Phosphatase 53 U/L (38-126); Aspartate Aminotransferase 52 IU/L (17-59); BUN Creatinine Ratio 13.3 (6-22); Bilirubin Total 0.5 mg/dL (0.2-1.3); Blood Urea Nitrogen 27 mg/dL (9-20); Calcium 7.7 mg/dL (8.4-10.2); Carbon Dioxide 21 mmol/L (22-32); Chloride 115 mmol/L (98-107); Creatine Kinase 420 U/L (55-170); Estimated Glomerular Filt Rate 31 mL/min (>60); Globulin 2.4 g/dL (1.7-4.1); Glucose 143 mg/dL (80-110); HEMOLYSIS < 15 (0-50); Magnesium 2.3 mg/dL (1.6-2.3); Phosphorous 3.5 mg/dL (2.3-3.7); Potassium 4.7 mmol/L (3.4-5.1); Sodium 141 mmol/L (137-145); Total Protein 5.5 g/dL (6.3-8.2)
[2023-08-07] MEDS: MULTIVITAMIN 1 TABLET 1 TAB PO (08:23)
[2023-08-07] MEDS: TAMSULOSIN 0.4 MG CAPSULE PO (08:23)
[2023-08-07] MEDS: APIXABAN 5 MG TABLET 2.5 MG PO (08:23)
[2023-08-07] MEDS: LEVOTHYROXINE 50 MCG TABLET PO (08:23)
[2023-08-07] MEDS: VALSARTAN 80 MG TABLET 160 MG PO (08:23)
[2023-08-07 08:24] LABS: Troponin I 0.044 ng/mL (0.01-0.034)
--- NOTE | 2023-08-07 09:37 | PM.DS.1 ---
History of Present Illness History of Present Illness Chief complaint: Lethargic Narrative: Patient is an 87-year-old male with factor 5 Leiden deficiency hypertension hyperlipidemia chronic kidney disease history of venous thromboembolus and pulmonary embolus carotid artery stenosis pituitary adenoma with resection in 2017. Patient was brought into the emergency department by ambulance because of weakness and confusion. Patient lives at home by himself. His daughter had been trying to contact him and was unable to do so she went in and checked on him. Patient was in bed was confused and had loss of bladder function. She was concerned about his change in status. He is normally active ambulating living independently and driving. This was a significant decline. Patient was evaluated in the emergency department and was admitted to the hospital. On my evaluation this morning patient states that he has not been feeling well for 2 or 3 days he has had a sore throat cough congestion and increasing weakness and difficulty getting out of bed and ambulating. Patient was apparently much more confused which he recognizes this morning last night. But he says he is starting to feel a little bit better. Does recognize meaning knows he is in the hospital not currently complaining of significant shortness of breath or chest pain complaining of weakness sore throat and cough. Patient had an evaluation in the emergency department patient did not have an elevated white blood cell count or significantly anemic he has a mildly low sodium has chronic kidney disease with an EGFR of 28 which is considered 3B. His glucose is normal. Patient had an elevated creatinine kinase of 406 but initial evaluation showed mildly elevated troponin at 0.075 indeterminate where his current troponin is 0.201 procalcitonin level is 0.243 thyroid test is 0.02 but T4 is 1.68 his urinalysis shows some mild blood but no signs of acute infection his parainfluenza virus PCR is positive. Patient had a CT scan of his head which showed no acute changes a chest x-ray shows right-sided pleural effusion and a chronic right upper lobe opacity. Patient was admitted the hospital for further evaluation and workup Discharge Providers Provider Date of admission: 08/05/23 20:55 Discharge Date: 08/07/23 Primary care physician: Reyes Beckford MD Consults: 08/05/23 20:54 Consult to Physician Stat Comment: Consulting Provider: Reyes Beckford Reason for consultation: admission Has provider been notified: No 08/05/23 20:55 Consult to Physician Stat Comment: Consulting Provider: Dyan Grijalva Reason for consultation: admission Has provider been notified: Yes 08/05/23 21:37 Consult to Discharge Planning Routine Comment: Consult to Physical Therapy Evaluate & Treat Comment: Physician Instructions: Evaluate and Treat Discharge provider: Reyes Beckford MD Summary Hospital Course Discharge Diagnosis: Viral pneumonia with Parainfluenza virus Acute metabolic encephalopathy Type 2 myocardial infarction Chronic kidney disease stage 3 C Pituitary adenoma status post resection Factor 5 Leiden deficiency with history of venous thromboembolus and pulmonary embolus Coronary artery disease Hypertension Hyperlipidemia BPH Hospital Course: Patient was admitted the hospital with fever respiratory distress altered mental status and significant profound weakness. Patient was found to have viral pneumonia with parainfluenza virus he was treated for concomitant bacterial pneumonia with antibiotics. Patient was given fluid resuscitation and oxygen due to his hypoxia and hypotension. During his hospital stay patient had elevation of his cardiac enzymes without significant EKG acute findings and or chest pain. Elevation of cardiac enzymes most likely due to underlying infection and demand ischemia. Patient had trending of his cardiac enzymes why he is here in the hospital and at time of discharge they were significantly lower. Patient was given a dose of beta-marti. He was continued on his anticoagulation. Because of his underlying significant chronic kidney disease medical management was felt to be appropriate for his underlying troponin rise. During his hospital stay monitoring of his fluid and electrolytes due to his chronic kidney disease which were stable. Was given stress dose of steroids as he has on a fairly high dose of hydrocortisone because of his pituitary adenoma which was removed. He was continued on his anticoagulation for his factor 5 Leiden deficiency and risk of pulmonary emboli and venous thromboembolism. Exam Vital Signs (past 8 hours): - 08/07/23 02:00 08/07/23 02:30 08/07/23 03:00 Temperature Pulse Rate 71 77 79 Respiratory Rate 23 19 20 Blood Pressure Pulse Oximetry 97 96 98 Oxygen Delivery Method Oxygen Flow Rate 08/07/23 03:14 08/07/23 03:14 08/07/23 03:30 Temperature 97.9 F Pulse Rate 77 67 Respiratory Rate 17 23 Blood Pressure 174/74 H Pulse Oximetry 98 95 Oxygen Delivery Method Oxygen Flow Rate 08/07/23 03:31 08/07/23 03:31 08/07/23 03:40 Temperature Pulse Rate 75 Respiratory Rate 20 Blood Pressure 149/65 H Pulse Oximetry 97 Oxygen Delivery Method Oxygen Flow Rate 3 08/07/23 04:00 08/07/23 04:01 08/07/23 04:01 Temperature Pulse Rate 89 79 Respiratory Rate 18 19 Blood Pressure 148/64 H Pulse Oximetry 97 98 Oxygen Delivery Method Oxygen Flow Rate 08/07/23 04:30 08/07/23 04:31 08/07/23 04:31 Temperature Pulse Rate 56 L 80 Respiratory Rate 17 19 Blood Pressure 145/66 H Pulse Oximetry 99 98 Oxygen Delivery Method Oxygen Flow Rate 08/07/23 05:00 08/07/23 05:01 08/07/23 05:01 Temperature Pulse Rate 76 77 Respiratory Rate 20 21 Blood Pressure 136/61 Pulse Oximetry 97 97 Oxygen Delivery Method Oxygen Flow Rate 08/07/23 05:30 08/07/23 05:31 08/07/23 05:31 Temperature Pulse Rate 53 L 53 L Respiratory Rate 27 H 21 Blood Pressure 175/73 H Pulse Oximetry 99 99 Oxygen Delivery Method Oxygen Flow Rate 08/07/23 06:00 08/07/23 06:01 08/07/23 06:01 Temperature Pulse Rate 60 56 L Respiratory Rate 19 19 Blood Pressure 170/69 H Pulse Oximetry 99 98 Oxygen Delivery Method Oxygen Flow Rate 08/07/23 06:30 08/07/23 06:31 08/07/23 06:31 Temperature Pulse Rate 56 L 56 L Respiratory Rate 19 20 Blood Pressure 172/70 H Pulse Oximetry 99 99 Oxygen Delivery Method Oxygen Flow Rate 08/07/23 07:00 08/07/23 07:00 08/07/23 07:01 Temperature Pulse Rate 53 L 51 L Respiratory Rate 17 16 Blood Pressure Pulse Oximetry 99 98 Oxygen Delivery Method Room Air Oxygen Flow Rate 08/07/23 07:01 08/07/23 07:30 08/07/23 07:31 Temperature Pulse Rate 54 L Respiratory Rate 18 Blood Pressure 187/72 H 172/72 H Pulse Oximetry 98 Oxygen Delivery Method Oxygen Flow Rate 08/07/23 07:31 08/07/23 08:00 Temperature Pulse Rate 53 L 134 H Respiratory Rate 20 32 H Blood Pressure Pulse Oximetry 98 92 Oxygen Delivery Method Oxygen Flow Rate Fraction of Inspired Oxygen 30 SaO2/FiO2 Ratio 326 Oxygen Delivery Method Room Air Oxygen Flow Rate 3 Objective Labs 08/07/23 07:35 08/07/23 07:35 Labs: Laboratory Results - last 24 hr 08/06/23 08/07/23 08/07/23 13:15 07:35 07:35 WBC 9.0 RBC 4.05 L Hgb 12.0 L Hct 35.5 L MCV 87.6 MCH 29.6 MCHC 33.8 RDW 14.8 Plt Count 101 L Neut % (Auto) 89.2 H Lymph % (Auto) 7.8 L Huntington % (Auto) 2.8 L Eos % (Auto) 0.0 L Baso % (Auto) 0.2 Neut # (Auto) 8000 H Lymph # (Auto) 700 L Huntington # (Auto) 300 Eos # (Auto) 0 Baso # (Auto) 0 Sodium 141 Potassium 4.7 Chloride 115 H Carbon Dioxide 21 L BUN 27 H Creatinine 2.03 H Estimated GFR 31 L BUN/Creatinine Ratio 13.3 Glucose 143 H Calcium 7.7 L Phosphorus 3.5 Magnesium 2.3 Total Bilirubin 0.5 AST 52 ALT 17 Alkaline Phosphatase 53 Total Creatine Kinase 443 H 420 H Troponin I 0.163 H* Cancelled 0.044 H Total Protein 5.5 L Albumin 3.1 L Globulin 2.4 Albumin/Globulin Ratio 1.3 PFSH Medical History Pituitary adenoma (01/14/17) Pulmonary embolism 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 Beckford 10 days Discharge orders & Medications Prescriptions: New cefdinir 300 mg capsule 300 mg PO BID Qty: 10 0RF Continued valsartan 160 mg tablet 160 mg PO DAILY apixaban 2.5 mg tablet 2.5 mg PO BID Qty: 60 12RF hydrocortisone [Cortef] 20 MG tablet 20 mg PO DAILY Qty: 0 desmopressin 0.1 MG tablet 0.05 mg PO BEDTIME Qty: 0 latanoprost 0.005 % drops 1 drp EYE-BOTH BEDTIME Qty: 0 atorvastatin 10 mg tablet 10 mg PO QPM Qty: 90 3RF tamsulosin [Flomax] 0.4 mg capsule 0.4 mg PO DAILY Qty: 90 3RF levothyroxine 50 mcg tablet 50 mcg PO DAILY Qty: 60 0RF calcium carbonate [Calcium 500] 500 mg calcium (1,250 mg) Tablet 500 mg PO DAILY Rx Instructions: 4 hours from Levothyroxine unknown dose multivitamin Tablet 1 tab PO DAILY Follow up/Referrals: Reyes Beckford MD [Primary Care Provider] - Visit Report/Discharge Packet Stand Alone Forms: Patient Portal/API, Stroke Signs & Symptoms Discharge Data Primary Care Provider: Reyes Beckford Quality VTE Deep Vein Thrombosis/Pulmonary Embolism Present on Admission: No [facility] PROFEE Charge Codes Discharge inpatient/observation: [id number]
--- NOTE | 2023-08-07 13:02 | PT.IIE ---
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 Hyperlipidemia (11/30/14) Hypertension (11/30/14) Pituitary adenoma (01/14/17) Pulmonary embolism Syncope 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) Physical Therapy Inpatient Evaluation/Re-Eval M1 PT/OT-IP Prior Functional Status Start: 08/07/23 13:52 Freq: NEEDED Status: Active Protocol: Document 08/07/23 13:02 AB (Rec: 08/07/23 14:14 AB [id number]) Medical Review Prior Functional Status Medical History Reviewed Yes Communication able to make needs known Mobility and Gait pt stated that he was modified independent with all mobilities and ambulation without AD and was able to still drive Social History Household Members none Living Arrangements House Number of Floors (Floors) Two Floors Number of Stairs To Enter/Railing? pt stays on main level of the house has 2 steps wide rails to enter the house and can only hold on to one rail at a time Home Environment Standard Height Toilet,Tub/ Shower Home Equipment Front Wheel Walker,Raised Toilet Seat w/Armrests,Shower Seat with Backrest,Hand Held Shower,Grab Bars Near Toilet, Grab Bars In Shower Additional Social History Comment pt stated that his daughter will be able to stay with him for a few days to assist depending on how he does M2 PT-IP Current Condition Start: 08/07/23 13:52 Freq: NEEDED Status: Active Protocol: Document 08/07/23 13:02 AB (Rec: 08/07/23 14:14 AB [id number]) Physical Therapy Current Condition Current Condition Evaluation Date 08/07/23 Treatment Diagnosis parainfluenza; difficulty in walking Onset Date 08/05/23 M3 PT-IP Subjective Start: 08/07/23 13:52 Freq: NEEDED Status: Active Protocol: Document 08/07/23 13:02 AB (Rec: 08/07/23 14:14 AB [id number]) Subjective Physical Therapy Visit Type Type Initial Evaluation Visit Start Time 13:02 Visit Stop Time 13:40 Number of QUALITATIVE RESEARCHER Visits 0 Physical Therapy Visit Comments Patient Comments agreeable to do PT Therapy Pain Assessment Pain Present Pain Present Denied Pain M4 PT-IP Mobility and Gait Start: 08/07/23 13:52 Freq: NEEDED Status: Active Protocol: Document 08/07/23 13:02 AB (Rec: 08/07/23 14:14 AB [id number]) PT-Bed Mobility Assessment Supine to Sit Supine to Sit Standby Assistance Sit to Supine Sit to Supine Standby Assistance PT-Transfer Assessment Sit to and From Stand Sit to and from Stand Contact Guard Assistance,1 Person Assistance,Use of Upper Extremities Equipment Transfer Assistive Device None,Gait Belt,Front Wheeled Walker Orthotic/Prosthetic Devices or Brace: No Transfers Transfer Destination Bed,Chair Transfer Technique ambulate Transfer Ability Level of Assist Standby Assistance,Contact Guard Assistance Comments Mobility Comments pt sitting on a chair. agreeable to do PT. obtained PLOF and home set up from pt. O2 sat at RA : 90-92%. pt completed sit to stand CGA and ambulated to EOB using FWW without AD CGA and cues. pt presents with unsteady waddling gait with decrease LE elevation. pt sat on EOB O2 sat: 81%. (+) SOB. cued for deep breathing and O2 sat increased to 85% in ~ 20 sec and increased to 92% ~ 30 sec of sitting and a few more deep breathing. educated pt regarding safety and agreed to use FWW. pt completed sit<>stand SBA and ambulated in room using FWW ~ 30 ft SBA to CGA and cues for FWW use and safety. pt sat back on chair. O2 sat checked : 82-83%. cued for deep breathing. O2 sat increased to 90-91% > 30 sec of resting. pt agreed to do steps. positioned step stool next to bed and pt to use bed rail as stair rail. pt completed up/ down step stool using rail CGA . pt repeated x 2 sets. pt sat back on chair. O2 sat checked: 82%. cued for deep breathing again. positioned pt on the chair. O2 sat after resting 93%. call light and table placed next to pt. informed nurse regarding O2 sat. Gait Assessment Gait Gait Assistance Required: Standby Assistance,Contact Guard Assist Distance (Feet) 30 Able to Maintain Weight Bearing Status Yes During Gait Assistive Devices Assistive Device None,Gait Belt,Front Wheeled Walker Orthotic/Prosthetic Devices or Brace: No Gait Deviations General Gait Pattern Ataxic,Decreased Stride Length ,Decreased Feet Clearance,Step -to Gait Factors Limiting Gait Function Factors Limiting Gait Function Decreased Activity Tolerance, Decreased Strength,Difficulty Following Directions,Poor Balance,Poor Safety Awareness, Respiratory Distress Stair Climbing Assessment Evaluation Level of Assist On Stairs Contact Guard Assistance Devices Stair Climbing Assistive Devices Left Railing,Right Railing Technique/Endurance Stair Climbing Direction Ascend and Descend Stair Climbing Technique Step to Step Number of Steps Climbed 1 Query Text: Stair Climbing Set # Repetitions (reps) 2 Comments Stair Climbing Comments pls refer to mobility section for details PT-Balance Assessment Sitting Balance and Reactions Static Sitting Balance Ability Good Dynamic Sitting Balance Ability Good Standing Balance and Reactions Static Standing Balance Ability Fair Dynamic Standing Balance Ability Fair Device Used FWW M5 PT-IP Objective Assessments Start: 08/07/23 13:52 Freq: NEEDED Status: Active Protocol: Document 08/07/23 13:02 AB (Rec: 08/07/23 14:14 AB [id number]) Orientation Orientation/Cognition Level of Alertness Alert Orientation Name,Place,Situation Language Function Ability No Deficits Noted Safety Awareness Decreased Safety Awareness Memory Description No Deficits Noted Gross Range of Motion Lower Extremity ROM Assessment Within Functional Limits Strength Lower Extremity Strength Assessment Within Functional Limits Coordination Assessment Gross Coordination Gross Coordination WNL Muscle Tone Muscle Tone WNL Yes M6 PT-IP Treatment Start: 08/07/23 13:52 Freq: NEEDED Status: Active Protocol: Document 08/07/23 13:02 AB (Rec: 08/07/23 14:14 AB [id number]) Physical Therapy Treatment Education Education Provided Safety M7 PT-IP Assessment and Plan Start: 08/07/23 13:52 Freq: NEEDED Status: Active Protocol: Document 08/07/23 13:02 AB (Rec: 08/07/23 14:14 AB [id number]) PT Summary Assessment and Plan Potential Rehabilitation Potential Fair Status of Condition at Evaluation Evolving Summary Impairments Pain,ROM,Strength,Balance, Coordination,Sensation,Tone, Cognition,Bed Mobility, Transfers,Gait,Activity Tolerance Assessment Summary pt is an 87 y/o M who presented to the ED for AMS. pt admitted for parainfluenza. pt requiring CGA with mobility but presents with (+) SOB with mobility and O2 sat decreased to 81% at RA. required frequent rest breaks and cues for deep breathing for O2 sat to increase back to 90-93% but took ~ 30 sec to recover. pt with unsteady gait and recommending use of FWW at this time. pt understood and agreed. pt lives alone but stated that his daughter will be able to stay with him for a few days and assist. will continue to assess progress. Goals Bed Mobility Goal Independent Transfer Goal Independent,Front Wheeled Walker Gait Goal Independent,Front Wheel Walker Gait Distance 300 Other Goals improve transfers and ambulation without AD ~ 300 ft mod I up/down 2 steps 1 rail mod I Days to Meet Goals 10 Frequency of Treatment Frequency Of Treatment Once a Day Treatment Plan Physical Therapy Treatment Plan Bed Mobility Training,Transfer Training,Gait Training, Therapeutic Exercise,Balance Retraining,Discharge Planning, Hot or Cold Pack,Neuromuscular Re-ed,Coordination Retraining Precautions Other Precautions O2 sat; droplet precautions ( parainfluenza) Recommendations To Nursing Amount of Assist Needed 1 Person Assist Discharge Recommendations PT Discharge Recommendations Home with 06/10 Assist Available,Home Health Transportation Needs at Discharge Private Vehicle
[2023-08-07] MEDS: HYDROCORTISONE 100 MG/2 ML VIAL 50 MG IV (13:07)
--- NOTE | 2023-08-07 13:58 | PC.NURSE ---
Notified Dr Beckford of the results of patient working with PT, patient's O2 saturation dropped to 82% and was slow to recover. Patient stated that he felt no ill effects of working with PT and assured me that he would rest and recover better in his own home with his daughter's care. Dr Beckford felt confident (as well as the patient) that with rest and care he would be able to manage the rest of his illness at home. If a home O2 consultation was needed Dr Beckford would schedule it through his office, outpatient, so he would be agreeable with discharging this patient. This nurse with proceed with the discharge of this patient as ordered. No further patient needs at this time.
--- NOTE | 2023-08-07 14:12 | CM.DPC ---
DCP cont. Reviewed EMR and team rounds for status updates. Pt has been medically cleared for home d/c. His daughter is en route to transport him back home. No further DCP needs are identified at this time.
[2023-08-09 09:56] LABS: Adrenocorticotropic Hormone <1.5 pg/mL (7.2-63.3)
== END 2023-08-07 15:14 | disposition home or self-care (01) | DRG 193 ==
LOC: ED 20:54 → AC 20:55 → ICU 22:51
PROVIDERS: Emergency Medicine; Family Medicine; Admitting Provider Family Medicine; Emergency Provider Emergency Medicine; Family Provider Family Medicine; PCP Family Medicine; Referring Provider Emergency Medicine; Visit Provider Family Medicine
DX: J12.2 Parainfluenza virus pneumonia (principal); G93.41 Metabolic encephalopathy; I21.A1 Myocardial infarction type 2; D68.51 Activated protein C resistance; I12.9 Hypertensive chronic kidney disease with stage 1 through stage 4 chronic kidney disease, or unspecified chronic kidney disease; N18.30 Chronic kidney disease, stage 3 unspecified; E78.5 Hyperlipidemia, unspecified; I65.29 Occlusion and stenosis of unspecified carotid artery; R09.02 Hypoxemia; Z87.891 Personal history of nicotine dependence; Z86.718 Personal history of other venous thrombosis and embolism; Z90.89 Acquired absence of other organs; Z86.711 Personal history of pulmonary embolism; Z79.01 Long term (current) use of anticoagulants; Z66 Do not resuscitate
CPT/HCPCS: 36415; 70450; 71045; 80048; 80053; 81001; 82024; 82533; 82550; 83605; 83735; 84100; 84145; 84484; 85025; 85610; 85730; 87040; 87633; 87797; 93005; 96365; 97162; 97530; 99223; 99238; 99284; 99285; J0696; J1720; J7050

== ENCOUNTER → 2023-09-22 11:03 | Outpatient (CLI) | payer MEDICARE, SELFPAY ==
[2023-08-05 23:50] VITALS: BMI 23.1
[2023-09-22 13:07] LABS: Free T4, Direct Thyroxine 1.13 ng/dL (0.78-2.19)
[2023-09-22 13:21] LABS: Thyroid Stimulating Hormone 0.033 uIU/mL (0.47-4.68)
== END ==
PROVIDERS: Family Provider Family Medicine; PCP Family Medicine; Referring Provider Nurse Practitioner; Visit Provider Nurse Practitioner
DX: E03.8 Other specified hypothyroidism (principal)
CPT/HCPCS: 36415; 84439; 84443; 84481

== ENCOUNTER → 2024-05-17 08:51 | Outpatient (CLI) | payer MEDICARE, SELFPAY ==
[2023-08-05 23:50] VITALS: BMI 23.1
[2024-05-17 09:49] LABS: Add Manual Diff / Slide Review NO; Basophils Absolute Auto 0 /uL (0-100); Basophils Percent Auto 0.5 % (0-2); Eosinophils Absolute Auto 400 /uL (0-450); Eosinophils Percent Auto 7.5 % (2-4); Hematocrit 34.3 % (41-53); Hemoglobin 11.8 g/dL (13.5-17.5); Lymphocytes Absolute Auto 1700 /uL (1100-4500); Lymphocytes Percent Auto 31.2 % (25-40); Mean Corpuscular HGB Conc 34.2 % (30-36); Mean Corpuscular Hemoglobin 29.9 PG (26-34); Mean Corpuscular Volume 87.5 fL (80-100); Monocytes Absolute Auto 500 /uL (0-900); Monocytes Percent Auto 8.1 % (3-14); Neutrophils Absolute Auto 2900 /uL (1500-7000); Neutrophils Percent Auto 52.7 % (50-75); Platelet Count 158 X10^3/uL (150-400); Red Blood Cell Count 3.92 X10^6/uL (4.5-5.9); Red Cell Distribution Width 14.1 % (11.6-14.8); White Blood Cell Count 5.6 X10^3/uL (4.5-11.0)
[2024-05-17 09:59] LABS: Hemoglobin A1C% w Est Avg Glu 5.1 % (4.0-6.0)
[2024-05-17 10:25] LABS: Cholesterol 191 mg/dL (140-199); Triglycerides 74 mg/dL (35-150)
[2024-05-17 10:36] LABS: HDL Cholesterol 115 mg/dL (40-60); LDL Cholesterol Calculated 61 mg/dL (<100)
[2024-05-17 10:54] LABS: TSH w/ Reflex to FT4 0.02 uIU/mL (0.47-4.68)
[2024-05-17 11:33] LABS: Free T4, Direct Thyroxine 0.96 ng/dL (0.78-2.19)
== END ==
PROVIDERS: Family Provider Family Medicine; PCP Family Medicine; Referring Provider Family Medicine; Visit Provider Family Medicine
DX: E23.2 Diabetes insipidus (principal); N18.32 Chronic kidney disease, stage 3b; D35.2 Benign neoplasm of pituitary gland
CPT/HCPCS: 36415; 80061; 83036; 84439; 84443; 85025

== ENCOUNTER → 2024-08-23 09:00 | Outpatient (CLI) | payer MEDICARE, SELFPAY ==
[2023-08-05 23:50] VITALS: BMI 23.1
[2024-08-23 10:23] LABS: Blood Urea Nitrogen 35 mg/dL (9-20); Carbon Dioxide 23 mmol/L (22-32); Chloride 101 mmol/L (98-107); Estimated Glomerular Filt Rate 35 mL/min (>60); Glucose 70 mg/dL (70-99); HEMOLYSIS < 15 (0-50); Potassium 3.9 mmol/L (3.4-5.1); Sodium 133 mmol/L (137-145)
[2024-08-23 10:38] LABS: Free T3, Triiodothyronine Free 2.89 pg/mL (2.77-5.27); Free T4, Direct Thyroxine 1.27 ng/dL (0.78-2.19)
[2024-08-23 10:41] LABS: Prolactin 8.7 ng/mL (3.7-17.9)
[2024-08-23 10:52] LABS: Thyroid Stimulating Hormone 0.017 uIU/mL (0.47-4.68)
== END ==
PROVIDERS: Family Provider Family Medicine; PCP Family Medicine; Referring Provider Nurse Practitioner; Visit Provider Nurse Practitioner
DX: D35.2 Benign neoplasm of pituitary gland (principal); E03.8 Other specified hypothyroidism; E23.2 Diabetes insipidus; E27.40 Unspecified adrenocortical insufficiency
CPT/HCPCS: 36415; 80048; 84146; 84439; 84443; 84481

== ENCOUNTER → 2024-09-06 09:42 | Outpatient (CLI) | payer MEDICARE, SELFPAY ==
[2023-08-05 23:50] VITALS: BMI 23.1
[2024-09-06 10:57] LABS: Blood Urea Nitrogen 28 mg/dL (9-20); Calcium 9.3 mg/dL (8.4-10.2); Carbon Dioxide 26 mmol/L (22-32); Chloride 106 mmol/L (98-107); Estimated Glomerular Filt Rate 34 mL/min (>60); Glucose 72 mg/dL (70-99); HEMOLYSIS < 15 (0-50); Potassium 4.1 mmol/L (3.4-5.1); Sodium 138 mmol/L (137-145)
== END ==
LOC: LAB 09:43
PROVIDERS: Family Provider Family Medicine; PCP Family Medicine; Referring Provider Nurse Practitioner; Visit Provider Nurse Practitioner
DX: E87.1 Hypo-osmolality and hyponatremia (principal); N18.32 Chronic kidney disease, stage 3b
CPT/HCPCS: 36415; 80048

== ENCOUNTER → 2024-11-30 10:13 | Outpatient (CLI) | payer MEDICARE, SELFPAY ==
[2023-08-05 23:50] VITALS: BMI 23.1
[2024-11-30 11:46] LABS: Appearance Urine UA CLEAR; Bilirubin Urine UA NEGATIVE (NEGATIVE); Color Urine UA YELLOW; Glucose Urine UA NEGATIVE (Negative); Ketones Urine UA NEGATIVE (NEGATIVE); Leukocyte Esterase Urine UA NEGATIVE (NEGATIVE); Nitrite Urine UA NEGATIVE (Negative); Occult Blood Urine UA NEGATIVE (Negative); Protein Urine UA NEGATIVE (Negative); Specific Gravity Urine UA 1.010 (1.000-1.035); Urobilinogen Urine UA 0.2 E.U./dL (0.2); pH Urine UA 5.5 (4.5-8.0)
[2024-11-30 11:50] LABS: Culture Indicated Urine Cult Not Indicated
[2024-11-30 13:02] LABS: Thyroid Stimulating Hormone 0.019 uIU/mL (0.47-4.68)
== END ==
PROVIDERS: PCP Family Medicine; Referring Provider Physician Assistant; Visit Provider Physician Assistant
DX: E03.9 Hypothyroidism, unspecified (principal); R35.0 Frequency of micturition; R32 Unspecified urinary incontinence
CPT/HCPCS: 36415; 81001; 84443

== ENCOUNTER → 2025-01-05 14:44 | Outpatient (CLI) | payer MEDICARE, SELFPAY ==
[2023-08-05 23:50] VITALS: BMI 23.1
--- NOTE | 2025-01-05 14:45 | DI.US.S_ITS ---
PROCEDURE: US ART LOW EXT RT W/KONRAD INDICATIONS: PAIN ?ISCHEMIC REST PAIN TECHNIQUE: Color and pulse Doppler interrogation was performed of the right lower extremity arterial system, with image documentation. COMPARISON: None. FINDINGS: Common femoral artery: 473 cm/sec, with monophasic flow. Deep femoral artery: 27 cm/sec, with biphasic flow. Proximal superficial femoral artery: 87 cm/sec, with monophasic flow. Mid superficial femoral artery: 60 cm/sec, with biphasic flow. Distal superficial femoral artery: 43 cm/sec, with biphasic flow. Popliteal artery: 26 cm/sec, with monophasic flow. Posterior tibial artery: 38 cm/sec, with biphasic flow. Anterior tibial artery/dorsalis pedis: 25 cm/sec, with biphasic flow. Soriano-scale imaging description: Heavily calcified plaque involving the distal left common femoral artery associated with elevated velocity. Multifocal calcified plaque throughout the SFA and popliteal artery. Diffuse calcified plaque involving the tibial arteries. Right KONRAD: 0.73 Left KONRAD: 0.90 IMPRESSION: 1. Heavily calcified plaque with elevated velocities involving the distal right common femoral artery suggestive of 50-99% stenosis. Vascular surgical consultation for consideration of endarterectomy is recommended. 2. Diminished KONRAD involving the right lower extremity as described above. Dictated by: Dustin Milton M.D. on 01/06/2025 at 16:04 Approved by: Dustin Milton M.D. on 01/06/2025 at 16:08
== END ==
LOC: US 14:44
PROVIDERS: PCP Family Medicine; Referring Provider Family Medicine; Visit Provider Physician Assistant
DX: I70.201 Unspecified atherosclerosis of native arteries of extremities, right leg (principal); I99.8 Other disorder of circulatory system; M79.606 Pain in leg, unspecified
CPT/HCPCS: 93922; 93926

== ENCOUNTER 2025-01-12 16:52 | Emergency (ER) | payer MEDICARE, SELFPAY ==
[2023-08-05 23:50] VITALS: BMI 23.1
[2025-01-12] VITALS (8 sets, daily range): BP systolic 143–177; BP diastolic 65–72; PULSE 61–73; RESP 18; TEMP 37.4; O2SAT 91–97; BMI 23.3
--- NOTE | 2025-01-12 19:29 | ED.NEUROSD ---
HPI - Neuro Symptoms/Deficit General Chief Complaint: Neuro Symptoms/Deficit Stated Complaint: Dental Pain x 3 days Time Seen by Provider: 01/12/25 18:03 Source: patient Mode of arrival: Ambulatory History of Present Illness HPI Narrative: 89-year-old male with history of pulmonary embolism, hypertension presents with lower gumline midline pain that is radiating along his gums for the past 2 days. He denies any fever chills or any other systemic symptoms. No obvious swelling or pain along the lower jaw or mandibular region. On Anticoagulants: Yes (Eliquis) Related Data Home Medications ?Medication ?Instructions ?Recorded ?Confirmed hydrocortisone 20 mg tablet 20 mg PO DAILY ##0 09/30/16 11/29/24 (Cortef) desmopressin 0.1 mg tablet 0.05 mg PO BEDTIME ##0 01/14/17 11/29/24 latanoprost 0.005 % eye drops 1 drp EYE-BOTH BEDTIME ##0 01/21/17 11/29/24 calcium carbonate (Calcium 500) 500 mg PO DAILY 07/05/18 11/29/24 multivitamin 1 tab PO DAILY 07/05/18 11/29/24 chlorhexidine gluconate 0.12 % buccal 11/29/24 11/29/24 mouthwash sodium fluoride 1.1 %-potassium dental BID 11/29/24 11/29/24 nitrate 5 % dental paste (PreviDent 5000 Sensitive) Previous Rx's ?Medication ?Instructions ?Recorded tamsulosin 0.4 mg capsule (Flomax) 0.4 mg PO DAILY #90 caps 02/19/24 valsartan 160 mg tablet 160 mg PO DAILY #90 tabs 10/26/24 apixaban 2.5 mg tablet (Eliquis) 2.5 mg PO BID #180 tabs 11/21/24 atorvastatin 10 mg tablet 10 mg PO QPM #90 tabs 11/21/24 levothyroxine 50 mcg tablet 50 mcg PO DAILY #45 tabs 12/01/24 amoxicillin 500 mg capsule 500 mg PO Q8H #21 caps 01/12/25 Allergies Allergy/AdvReac Type Severity Reaction Status Date / Time No Known Drug Allergies (NO Allergy Unknown Verified 11/29/24 14:26 KNOWN DRUG ALLERGIES) Review of Systems Review of Systems ROS Unobtainable: All systems reviewed & are unremarkable except as noted in HPI and below Hematologic/Lymphatic On Anticoagulants: Yes (Eliquis) Patient History Medical History (Updated 01/12/25 @ 19:35 by Aakash Kapoor MD) Type 2 acute myocardial infarction Pituitary adenoma (01/14/17) Pulmonary embolism 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 Elevated troponin Acute kidney injury Dehydration Thromboembolism of proximal vein of left lower extremity (05/07/16) Hypertension (11/30/14) Hyperlipidemia (11/30/14) Glaucoma (11/30/14) Cataract (11/30/14) Syncope Surgical History Status post appendectomy Family History Grandfather Mental health problem Grandmother Hypertension Mother Age: 111 Colon cancer Grandfather Heart disease Social History household members: none Smoking Status: Former smoker alcohol intake: current Smoking Status: Former smoker tobacco type: cigarettes alcohol intake frequency: a few times a week Alcohol type: wine Exam Narrative Exam Narrative: General: Patient appears to be in no acute distress, acting appropriately Head: normocephalic, atraumatic, HEENT: Pupils equal round reactive, eyes tracking well, neck supple, no JVD teeth: lower gumline midline area pain with gingivitis picture Heart: regular rate and rhythm, no murmurs, rubs, or gallops heard Lungs: clear to auscultation, no adventitious sounds Abdomen: soft , nontender, nondistended, positive bowel sounds Neurological: no focal neurological signs, moving all extremities well, alert and oriented x3, Psych: good judgment ,good insight, mood is normal. Initial Vital Signs Initial Vital Signs: Vital Signs Temperature 99.3 F 01/12/25 17:11 Pulse Rate 67 01/12/25 17:11 Respiratory Rate 18 01/12/25 17:11 Blood Pressure 162/68 H 01/12/25 17:11 Pulse Oximetry 95 01/12/25 17:11 Oxygen Delivery Method Room Air 01/12/25 17:11 Course Orders Ordered: Discontinued Medications Hydrocodone Bitart/Acetaminophen (Hydrocodone/Acet 5/325 Prepack) 1 bottle MISC DIRECTED ONE Stop: 01/12/25 19:37 Last Admin: 01/12/25 19:44 Dose: 1 bottle Documented By: SHWETHA Amoxicillin (Amoxicillin 250 Mg Prepack) 1 bottle MISC DIRECTED ONE Stop: 01/12/25 19:31 Last Admin: 01/12/25 19:44 Dose: 1 bottle Documented By: SHWETHA Bacitracin (Bacitracin Oint 0.9 Gm Pckt) 1 applic TOP NOW ONE Stop: 01/12/25 17:56 Last Admin: 01/12/25 18:01 Dose: Not Given Documented By: SHWETHA Vital Signs Vital signs: Vital Signs - 8 hr 01/12/25 17:11 Temperature 99.3 F Pulse Rate 67 Respiratory Rate 18 Blood Pressure 162/68 H Pulse Oximetry 95 Oxygen Delivery Method Room Air MDM - Neuro Symptoms/Deficit Lab Data Labs: Lab Results 01/12/25 Range/Units 17:15 Urine RBC None seen (0-5/HPF) Urine WBC None seen (0-5/HPF) Ur Squamous Epith Cells None seen (0-5/HPF) Urine Bacteria None seen (None) Vol Urine Centrifuged Low vol <10ml unspun A Urine Dip Bedside Urine Glucose Negative Bedside Urine Bilirubin - Negative Bedside Urine Ketone - Negative Urine Specific [place] 1.005 Bedside Urine Occult Blood +/- Bedside Urine pH 6.0 Bedside Urine Protein - Negative Bedside Urine Urobilinogen - Negative Bedside Urine Nitrite - Negative Bedside Urine Leukocytes - Negative Esterase MDM Narrative Medical decision making narrative: 89-year-old male with lower gumline pain for the past 2 days has a gingivitis picture. We will treat with antibiotics and will follow up with dentist as planned. Discharge Plan Departure Patient Disposition: Home Clinical Impression: Gingivitis Instructions: DI for Dental Pain Activity Restrictions/Additional Instructions: Take antibiotics as directed. Use pain meds and antibiotics given here in the ED. follow up with dentist as planned. Can come back sooner if pain persists. Prescriptions: New amoxicillin 500 mg capsule 500 mg PO Q8H Qty: 21 0RF No Action hydrocortisone [Cortef] 20 MG tablet 20 mg PO DAILY Qty: 0 desmopressin 0.1 MG tablet 0.05 mg PO BEDTIME Qty: 0 latanoprost 0.005 % drops 1 drp EYE-BOTH BEDTIME Qty: 0 tamsulosin [Flomax] 0.4 mg capsule 0.4 mg PO DAILY Qty: 90 3RF valsartan 160 mg tablet 160 mg PO DAILY Qty: 90 3RF Eliquis 2.5 mg tablet 2.5 mg PO BID Qty: 180 3RF atorvastatin 10 mg tablet 10 mg PO QPM Qty: 90 3RF levothyroxine 50 mcg tablet 50 mcg PO DAILY Qty: 45 1RF Rx Instructions: Take one tablet once daily. Repeat lab work when on last week of medication in this bottle chlorhexidine gluconate 0.12 % mouthwash buccal Patient Comments: SWISH WITH 1/2 OUNCE FOR 30 SECONDS BEFORE BRUSHING EVERY NIGHT. USE FOR 1 WEEK EACH MONTH ONLY sodium fluoride-pot nitrate [PreviDent 5000 Sensitive] 1.1-5 % paste dental BID calcium carbonate [Calcium 500] 500 mg calcium (1,250 mg) Tablet 500 mg PO DAILY Rx Instructions: 4 hours from Levothyroxine unknown dose multivitamin Tablet 1 tab PO DAILY Referrals: Reyes Beckford MD [Primary Care Provider, Family Practice] Stand Alone Forms: Patient Portal/API
[2025-01-12] MEDS: AMOXICILLIN 250 MG PREPACK 1 BOTTLE MISC (19:44)
== END 2025-01-12 19:55 | disposition home or self-care (01) ==
PROVIDERS: Emergency Medicine; Emergency Provider Family Medicine; PCP Family Medicine
DX: K05.10 Chronic gingivitis, plaque induced (principal); I10 Essential (primary) hypertension; Z79.01 Long term (current) use of anticoagulants; I25.2 Old myocardial infarction; Z86.711 Personal history of pulmonary embolism
CPT/HCPCS: 81003; 81015; 99282; 99283